=== PATIENT | male | born 1950 | race Hispanic/Latino ===

== ENCOUNTER 2021-07-19 10:04 | Inpatient (IN) | payer MEDICARE ==
[2021-07-19] MEDS ORDERED: dilTIAZem 25 MG/5 ML INJ IV ONE ×3 (10:45→13:26)
--- NOTE | 2021-07-19 10:49 | Emergency Department Report ---
<TERESITA OLIVEIRA - Last Filed: 07/19/21 13:54> ED Shortness of Breath HPI - General Chief Complaint: Dyspnea/Respdistress Stated Complaint: SOB/BIATERAL LEG SWELLING Time Seen by Provider: 07/19/21 10:29 Source: patient Mode of arrival: Wheelchair Limitations: Physical Limitation - History of Present Illness Initial Comments: Patient is a 71-year-old male who presents emergency room with complaints of chest pain and shortness of breath. Patient states that he has chest pain that moves across the chest and feels like a aching and tightness. He states he has had this chest pain for approximately 2 to 3 weeks. Patient states he has been feeling short of breath for a month and a half. He states that shortness of breath has been increasing. He states it is worse whenever he lays flat or with exertion. Patient went to [facility] last week and according to his discharge paperwork he was diagnosed with CHF nyha class 4 . He states he takes Lasix 40 mg once a day. according to his paperwork he was supposed to increase his lasix to 40 mg BID. there is no mention on his paperwork of history of irregular heart rhythm. Patient states he also has a history of MD. Patient states he is also been having some nausea and a few episodes of vomiting. He denies any abdominal pain, pleuritic pain, hemoptysis. Patient denies any history of being diagnosed with a regular heart rhythm or being on any beta-blockers or anticoagulation. He denies any medication allergies. 1115 AM, patient move to MAIN ED room 19, care transferred to Dr. Govea, ER attending who will be resuming care of patient - Related Data Home Medications Medication Instructions Recorded Confirmed Last Taken No Known Home Medications [No 07/19/21 07/19/21 Unknown Reported Home Medications] Allergies Allergy/AdvReac Type Severity Reaction Status Date / Time No Known Allergies Allergy Verified 07/19/21 10:06 ED Review of Systems Comment: All other systems reviewed and negative ED Past Medical Hx - Past Medical History Previous Medical History?: Yes Hx Congestive Heart Failure: Yes Additional medical history: COVID 05/2021 - Surgical History Past Surgical History?: Yes Additional Surgical History: right elbow sx - Social History Smoking Status: Current Every Day Smoker Substance Use Type: Alcohol - Medications Home Medications: Home Medications Medication Instructions Recorded Confirmed Last Taken Type No Known Home Medications [No 07/19/21 07/19/21 Unknown History Reported Home Medications] ED Physical Exam - General Limitations: Physical Limitation General appearance: alert, in no apparent distress - Head Head exam: Present: atraumatic, normocephalic - Eye Eye exam: Present: normal appearance - ENT ENT exam: Present: mucous membranes moist - Respiratory Respiratory exam: Present: rales (bilateral bases). Absent: respiratory distress, wheezes, rhonchi, stridor, chest wall tenderness, accessory muscle use - Cardiovascular Cardiovascular Exam: Present: tachycardia, irregular rhythm - Extremities Exam Extremities exam: Present: other (4+ pitting edema to the BLE) - Neurological Exam Neurological exam: Present: alert, oriented X3 - Psychiatric Psychiatric exam: Present: normal affect, normal mood - Skin Skin exam: Present: warm, dry ED Medical Decision Making - Lab Data Result diagrams: 07/19/21 11:27 07/19/21 11:27 - EKG Data EKG shows normal: axis Rate: tachycardia - EKG Data 07/19/21 10:48 Irregular rhythm with elevated heart rate No STEMI ED Disposition Clinical Impression: Atrial fibrillation with RVR, CHF exacerbation, Chest pain Disposition: ADMITTED INPATIENT Condition: Stable Instructions: Nonspecific Chest Pain, Adult Referrals: PRIMARY CARE,MD [Primary Care Provider] - 3-5 Days <FAREED GOVEA - Last Filed: 07/19/21 14:00> ED Review of Systems ROS: Stated complaint: SOB/BIATERAL LEG SWELLING Other details as noted in HPI ED Course Vital Signs 07/19/21 07/19/21 07/19/21 10:06 11:10 11:15 Temperature 97.8 F Pulse Rate 145 H 135 H 132 H Respiratory 20 18 16 Rate Blood Pressure 103/78 O2 Sat by Pulse 100 Oximetry 07/19/21 07/19/21 07/19/21 11:31 11:33 11:35 Temperature Pulse Rate 100 H 147 H Respiratory 19 18 Rate Blood Pressure 146/110 146/110 O2 Sat by Pulse Oximetry 07/19/21 07/19/21 07/19/21 11:45 12:05 12:21 Temperature Pulse Rate Respiratory 20 Rate Blood Pressure 150/79 136/73 123/73 O2 Sat by Pulse Oximetry 07/19/21 07/19/21 07/19/21 12:34 12:35 12:49 Temperature Pulse Rate Respiratory Rate Blood Pressure 127/71 127/71 O2 Sat by Pulse 97 Oximetry 07/19/21 07/19/21 07/19/21 13:05 13:21 13:45 Temperature Pulse Rate 115 H Respiratory Rate Blood Pressure 120/76 136/73 123/77 O2 Sat by Pulse 99 Oximetry ED Medical Decision Making - Lab Data Result diagrams: 07/19/21 11:27 07/19/21 11:27 Laboratory Tests 07/19/21 07/19/21 07/19/21 11:27 11:27 11:27 WBC 5.5 RBC 3.12 L Hgb 11.7 L Hct 34.6 L MCV 111 H MCH 38 H MCHC 34 RDW 19.4 H Plt Count 103 L Lymph % (Auto) 20.7 Terry % (Auto) 9.7 H Eos % (Auto) 1.4 Baso % (Auto) 1.8 Lymph # (Auto) 1.1 L Terry # (Auto) 0.5 Eos # (Auto) 0.1 Baso # (Auto) 0.1 Seg Neutrophils % 66.4 Seg Neutrophils # 3.6 PT 15.1 H INR 1.14 H APTT 30.7 Sodium 141 Potassium 4.2 Chloride 103.1 Carbon Dioxide 20 L Anion Gap 22 BUN 50 H Creatinine 3.6 H Estimated GFR 17 BUN/Creatinine Ratio 14 Glucose 166 H Calcium 9.3 Magnesium 2.30 Total Bilirubin 0.60 AST 23 ALT 18 Alkaline Phosphatase 135 H Total Creatine Kinase 85 Troponin T 0.069 H NT-Pro-B Natriuret Pep 31990 H Total Protein 7.2 Albumin 3.7 L Albumin/Globulin Ratio 1.1 Triglycerides 127 Cholesterol 138 LDL Cholesterol Direct 80 HDL Cholesterol 33 L Cholesterol/HDL Ratio 4.18 TSH 07/19/21 11:27 WBC RBC Hgb Hct MCV MCH MCHC RDW Plt Count Lymph % (Auto) Terry % (Auto) Eos % (Auto) Baso % (Auto) Lymph # (Auto) Terry # (Auto) Eos # (Auto) Baso # (Auto) Seg Neutrophils % Seg Neutrophils # PT INR APTT Sodium Potassium Chloride Carbon Dioxide Anion Gap BUN Creatinine Estimated GFR BUN/Creatinine Ratio Glucose Calcium Magnesium Total Bilirubin AST ALT Alkaline Phosphatase Total Creatine Kinase Troponin T NT-Pro-B Natriuret Pep Total Protein Albumin Albumin/Globulin Ratio Triglycerides Cholesterol LDL Cholesterol Direct HDL Cholesterol Cholesterol/HDL Ratio TSH 3.060 - Differential Diagnosis CHF exacerbation, A. fib with RVR Critical care attestation.: If time is entered above; I have spent that time in minutes in the direct care of this critically ill patient, excluding procedure time. ED Disposition Is pt being admited?: Yes Does the pt Need Aspirin: Yes Time of Disposition: 14:00 (Hospitalist called (Dr Wick)) Heart Score - HEART Score History: Moderately suspicious EKG: Non-specific Age: > 65 Risk factors: 1-2 risk factors Troponin: 1-3x normal limit HEART Score: 6 - EKG Read Time Time EKG Completed: 10:26 EKG Read Time: 10:32
--- NOTE | 2021-07-19 11:21 | XRay Report ---
CHEST 2 VIEWS INDICATION / CLINICAL INFORMATION: Chest Pain. COMPARISON: None available. FINDINGS: SUPPORT DEVICES: None. HEART / MEDIASTINUM: No significant abnormality. LUNGS / PLEURA: Bilateral right greater than left pleural effusions with bibasilar opacities No pneum othorax. ADDITIONAL FINDINGS: No significant additional findings. IMPRESSION: 1. Bilateral right greater than left pleural effusions with bibasilar opacities. Infectious process i s not excluded. Signer Name: Rob Alonso DO Signed: 07/19/2021 11:17 AM Workstation Name: [id number]
[2021-07-19] MEDS ORDERED: ONDANSETRON 4 MG/2 ML INJ IV ONE (11:34)
[2021-07-19] MEDS ORDERED: fentaNYL 100 MCG/2 ML INJ IV ONE (11:34)
[2021-07-19] MEDS ORDERED: AMIODARONE 150 MG in DEXTROSE 5% IN WATER 97 ML IV ONE (12:00)
[2021-07-19] MEDS ORDERED: AMIODARONE 900 MG in DEXTROSE 5% IN WATER 482 ML IV SCH (12:00)
[2021-07-19 13:12] LABS: Basophils # (Auto) 0.1 K/mm3 (0.0-0.1); Basophils % (Auto) 1.8 % (0.0-1.8); Eosinophils # (Auto) 0.1 K/mm3 (0.0-0.4); Eosinophils % (Auto) 1.4 % (0.0-4.3); Hematocrit 34.6 % (35.5-45.6); Hemoglobin 11.7 gm/dl (11.8-15.2); Lymphocytes # (Auto) 1.1 K/mm3 (1.2-5.4); Lymphocytes % (Auto) 20.7 % (13.4-35.0); Mean Corpuscular HGB Conc 34 % (32-34); Mean Corpuscular Volume 111 fl (84-94); Monocytes # (Auto) 0.5 K/mm3 (0.0-0.8); Monocytes % (Auto) 9.7 % (0.0-7.3); Platelet Count 103 K/mm3 (140-440); Red Blood Count 3.12 M/mm3 (3.65-5.03); Red Cell Distribution Width 19.4 % (13.2-15.2)
[2021-07-19 13:21] LABS: INR 1.14 (0.87-1.13)
[2021-07-19 13:22] LABS: Partial Thromboplastin Time 30.7 Sec. (24.2-36.6)
[2021-07-19 13:31] LABS: Albumin 3.7 g/dL (3.9-5); Calcium 9.3 mg/dL (8.4-10.2)
[2021-07-19 13:56] LABS: Chol/HDL Ratio 4.18 %
[2021-07-19] MEDS ORDERED: dilTIAZem/D5W 100 MG/100 ML BAG IV SCH ×2 (14:00→15:00)
--- NOTE | 2021-07-19 14:01 | History and Physical Report ---
History of Present Illness Chief complaint: My heart is pounding in my chest and it is hard to breathe History of present illness: 71 YO Male with Systolic CHF, Obesity Hypoventilation Syndrome, Nicotine Dependence, MD presents to ED for evaluation. Patient reports "my heart is pounding in my chest and it is hard to breathe". Patient states that he has experienced chest palpitations over the past 2 to 3 weeks with intermittent but progressively worsening symptoms over the past 2 days. Patient knowledges chest palpitations, shortness of breath, orthopnea, paroxysmal nocturnal dyspnea, decreased exercise tolerance, bilateral lower extremity edema. Patient denies medication noncompliance. Patient transported to [facility] via private vehicle for further care and evaluation of the aforementioned symptoms. The patient was seen and evaluated in the emergency department. All lab and imaging studies reviewed. Patient with an EKG which revealed evidence of atrial fibrillation with rapid ventricular response. Patient also found to have clinical symptoms consistent with CHF decompensation as well as acute kidney injury with acute tubular necrosis. Patient admitted to telemetry due to increased risk of worsen ing symptoms and initiated on CHF protocol. Patient initiated on medical cardioversion with Cardizem in the emergency department with normalization of heart rate. Patient transition to oral Cardizem and admitted to telemetry. Patient found to have a [id number] score of 3 in the emergency department. Patient initiated on therapeutic anticoagulation with Eliquis. Patient denies fever, chills, chest pain, productive cough, skin rash, recent ill contacts, or known recent exposure to COVID-19. No prior admission for review. No medication listed at time of admission for reconciliation. Advanced care planning conducted in ED. Past History Past Medical History: heart failure, other (See HPI) Past Surgical History: Other (Right elbow surgery) Social history: single, smoking Family history: hypertension Medications and Allergies Allergies Allergy/AdvReac Type Severity Reaction Status Date / Time No Known Allergies Allergy Verified 07/19/21 10:06 Home Medications Medication Instructions Recorded Confirmed Last Taken Type No Known Home Medications [No 07/19/21 07/19/21 Unknown History Reported Home Medications] Active Meds: Active Medications Diltiazem HCl (Cardizem/D5w 100mg/100ml) 100 mg in 100 mls @ 5 mls/hr IV TITR RIC; Protocol Review of Systems Constitutional: no weight loss, no weight gain, no fever, no chills Ears, nose, mouth and throat: no ear pain, no ear discharge, no tinnitis, no sinus pressure Cardiovascular: orthopnea, palpitations, rapid/irregular heart beat, shortness of breath, dyspnea on exertion, paroxysmal nocturnal dyspnea, leg edema, decreased exercise tolerance Respiratory: no cough, no cough with sputum, no hemoptysis Gastrointestinal: no nausea, no vomiting, no diarrhea Genitourinary Male: no hematuria, no flank pain, no discharge, no urinary frequency, no urinary hesitancy Rectal: no pain, no incontinence, no bleeding Musculoskeletal: no neck stiffness, no neck pain, no shooting arm pain, no arm numbness/tingling, no low back pain, no shooting leg pain Integumentary: no rash, no pruritis, no redness, no sores, no wounds Neurological: no transient paralysis, no paralysis, no parathesias, no tingling, no seizures, no syncope Psychiatric: no anxiety, no memory loss, no sleep disturbances Endocrine: no cold intolerance, no heat intolerance, no polydipsia, no polyuria, no nocturia Hematologic/Lymphatic: no easy bruising, no easy bleeding Allergic/Immunologic: no urticaria, no allergic rhinitis Exam - Constitutional Vitals: Temp Pulse Resp BP Pulse Ox 97.8 F 115 H 20 123/77 99 07/19/21 10:06 07/19/21 13:45 07/19/21 11:45 07/19/21 13:45 07/19/21 13:21 General appearance: Present: mild distress, obese - EENT Eyes: Present: PERRL ENT: hearing intact, clear oral mucosa - Neck Neck: Present: supple, normal ROM - Respiratory Respiratory effort: normal, labored Respiratory: bilateral: diminished, rales - Cardiovascular Heart Sounds: Present: S1 & S2. Absent: rub, click - Extremities Extremities: pulses symmetrical Extremity abnormal: edema Peripheral Pulses: within normal limits - Abdominal General gastrointestinal: Present: soft, non-tender, non-distended, normal bowel sounds Male genitourinary: Present: normal - Integumentary Integumentary: Present: clear, warm, dry - Musculoskeletal Musculoskeletal: gait normal, strength equal bilaterally - Psychiatric Psychiatric: appropriate mood/affect, intact judgment & insight - Neurologic Neurologic: CNII-XII intact, moves all extremities HEART Score - HEART Score EKG: Non-specific Age: > 65 Risk factors: 1-2 risk factors Troponin: Troponin T 0.069 ng/mL (0.00-0.029) H 07/19/21 11:27 Troponin: 1-3x normal limit Results - Labs CBC & Chem 7: 07/19/21 15:22 07/19/21 15:12 Labs: Abnormal lab results 07/19/21 07/19/21 07/19/21 Range/Units 11:27 11:27 11:27 RBC 3.12 L (3.65-5.03) M/mm3 Hgb 11.7 L (11.8-15.2) gm/dl Hct 34.6 L (35.5-45.6) % MCV 111 H (84-94) fl MCH 38 H (28-32) pg RDW 19.4 H (13.2-15.2) % Plt Count 103 L (140-440) K/mm3 Butts % (Auto) 9.7 H (0.0-7.3) % Lymph # (Auto) 1.1 L (1.2-5.4) K/mm3 PT 15.1 H (12.2-14.9) Sec. INR 1.14 H (0.87-1.13) Carbon Dioxide 20 L (22-30) mmol/L BUN 50 H (9-20) mg/dL Creatinine 3.6 H (0.8-1.3) mg/dL Glucose 166 H (75-100) mg/dL Alkaline Phosphatase 135 H (35-129) units/L Troponin T 0.069 H (0.00-0.029) ng/mL NT-Pro-B Natriuret Pep 10223 H (0-900) pg/mL Albumin 3.7 L (3.9-5) g/dL HDL Cholesterol 33 L (40-59) mg/dL Assessment and Plan - Patient Problems (1) CHF exacerbation Current Visit: Yes Status: Acute Qualifiers: Heart failure type: systolic Qualified Code(s): I50.23 - Acute on chronic systolic (congestive) heart failure Plan to address problem: Strict I's/O, diuresis, afterload reduction, cardiology team consulted in ED, echocardiogram ordered and is pending at time of admission, thyroid panel, magnesium level, afterload reduction, blood pressure control. (2) Atrial fibrillation with RVR Current Visit: Yes Status: Acute Plan to address problem: Patient treated with medical cardioversion with IV Cardizem. Patient switched to oral Cardizem, patient initiated on therapeutic anticoagulation with Eliquis. (3) Acute kidney injury (CONCETTA) with acute tubular necrosis (ATN) Current Visit: Yes Status: Acute Plan to address problem: Nephrology team consulted in ED, blood pressure control, monitor fluid balance, monitor urine output every shift. (4) Nicotine dependence Current Visit: Yes Status: Acute Qualifiers: Nicotine product type: cigarettes Substance use status: in withdrawal Qualified Code(s): F17.213 - Nicotine dependence, cigarettes, with withdrawal Plan to address problem: Smoking cessation counseling, supportive care. Behavior change counseling, +15 minutes. (5) Obesity hypoventilation syndrome Current Visit: Yes Status: Acute Plan to address problem: Balanced diet, increase physical activity discharge, outpatient pulmonary follow-up for sleep study. (6) DVT prophylaxis Current Visit: Yes Status: Acute Plan to address problem: SCD to bilateral lower extremities while in bed, continue therapeutic anticoagulation. (7) Advance care planning Current Visit: Yes Status: Acute Plan to address problem: Disease education conducted, care plan discussed, diagnosis discussed, prognosis discussed, patient is full code, patient knowledges understanding and agree with care plan.
[2021-07-19] MEDS ORDERED: ALBUTEROL 2.5 MG/3 ML NEBU IH PRN (15:03)
[2021-07-19 15:31] LABS: Hematocrit 33.5 % (35.5-45.6); Hemoglobin 11.4 gm/dl (11.8-15.2); Mean Corpuscular HGB Conc 34 % (32-34); Mean Corpuscular Volume 110 fl (84-94); Platelet Count 107 K/mm3 (140-440); Red Blood Count 3.06 M/mm3 (3.65-5.03); Red Cell Distribution Width 18.6 % (13.2-15.2)
[2021-07-19] MEDS: ONDANSETRON 4 MG/2 ML INJ IV PRN (15:39)
[2021-07-19 15:42] LABS: INR 1.12 (0.87-1.13)
[2021-07-19 15:43] LABS: Partial Thromboplastin Time 28.6 Sec. (24.2-36.6)
[2021-07-19 15:58] LABS: Free T4 (Free Thyroxine) 1.23 ng/dL (0.76-1.46)
[2021-07-19 17:30] LABS: Free T4 (Free Thyroxine) 1.22 ng/dL (0.76-1.46)
[2021-07-19] MEDS: dilTIAZem 30 MG TAB PO SCH (17:44)
[2021-07-19] MEDS ORDERED: dilTIAZem 30 MG TAB PO SCH (18:00)
--- NOTE | 2021-07-19 19:28 | Consultation ---
History of Present Illness - Reason for Consult Consult date: 07/19/21 acute renal failure - History of Present Illness The patient is a 71 YO male with hsitory significant for Morbid obesity, DM-2, HTN, HLD, current tobacco use (1.5 pack/day) and CKD-3 who presented to [facility] ED 07/19 with c/o heart palpitation and sob. Patient states that he has experienced heart palpitations over the past 2 to 3 weeks with symptoms being worse over the past 2 days. Patient reports orthopnea, decreased exercise tolerance and bilateral lower extremity edema. Patient denies fever, chills, chest pain, prod uctive cough, skin rash, N, V, D, abd pain, dysuria, hematuria, recent ill contacts, or known recent exposure to COVID-19. In the ED patient was found to have Atrial fibrillation with rapid ventricular response and CXR showed b/l pleural effusions and opacities. Patient was admitted for further evaluation of decompensated CHF and A.fib with RVR. Labs significant for Creat 3.6 and BUN 50. Nephrology was consulted for further evaluation of CONCETTA. Past History Past Medical History: diabetes, heart failure, hypertension, hyperlipidemia, renal failure, other (See HPI) Past Surgical History: Other (Right elbow surgery) Social history: single, smoking Family history: hypertension Medications and Allergies Allergies Allergy/AdvReac Type Severity Reaction Status Date / Time No Known Allergies Allergy Verified 07/19/21 10:06 Home Medications Medication Instructions Recorded Confirmed Last Taken Type No Known Home Medications [No 07/19/21 07/19/21 Unknown History Reported Home Medications] Active Meds: Active Medications Acetaminophen (Acetaminophen 325 Mg Tab) 650 mg PO Q4H PRN PRN Reason: Pain MILD(1-3)/Fever >100.5/AVILA Albuterol (Albuterol 2.5 Mg/3 Ml Nebu) 2.5 mg IH Q4H PRN PRN Reason: Shortness Of Breath Apixaban (Apixaban 2.5 Mg Tab) 2.5 mg PO Q12HR RIC; Protocol Diltiazem HCl (Diltiazem 30 Mg Tab) 30 mg PO Q6H RIC Last Admin: 07/19/21 17:44 Dose: 30 mg Documented by: Famotidine (Famotidine 20 Mg Tab) 20 mg PO BID RIC Hydromorphone HCl (Hydromorphone 1 Mg/1 Ml Inj) 0.5 mg IV Q23H PRN PRN Reason: Pain , Severe (7-10) Diltiazem HCl (Cardizem/D5w 100mg/100ml) 100 mg in 100 mls @ 5 mls/hr IV TITR RIC; Protocol Ondansetron HCl (Ondansetron 4 Mg/2 Ml Inj) 4 mg IV Q8H PRN PRN Reason: Nausea And Vomiting Last Admin: 07/19/21 15:39 Dose: 4 mg Documented by: Oxycodone/Acetaminophen (Oxycodone /Acetaminophen 5-325mg Tab) 1 tab PO Q16H PRN PRN Reason: Pain, Moderate (4-6) Sodium Chloride (Sodium Chloride 0.9% 10 Ml Flush Syringe) 10 ml IV BID RIC Sodium Chloride (Sodium Chloride 0.9% 10 Ml Flush Syringe) 10 ml IV PRN PRN PRN Reason: LINE FLUSH Review of Systems All systems: negative (See HPI.) Exam - Vital Signs Vital signs: Vital Signs Temp Pulse Resp BP Pulse Ox 97.8 F 145 H 20 103/78 100 07/19/21 10:06 07/19/21 10:06 07/19/21 10:06 07/19/21 10:06 07/19/21 10:06 Results - Lab Results 07/19/21 15:22 07/19/21 15:12 Most recent lab results Calcium 9.3 mg/dL (8.4-10.2) 07/19/21 11:27 Magnesium 2.40 mg/dL (1.7-2.3) H 07/19/21 16:41 Assessment and Plan 1. Acute kidney injury: CONCETTA superimposed on CKD-3 in the setting of decompensated CHF. Urine studies and Renal US ordered. Monitor renal function. Renal prognosis is guarded. Avoid nephrotoxic agents. Meds dosage based on GFR. 2. FEN: Mild metabolic acidosis, monitor. Volume overload, diuretics. Monitor lytes and volume status. 3. A.fib with RVR: On Amiodarone drip and Eliquis. Cardizem. Monitor. 4. Decompensated CHF / Elevated troponin, POA: Cards consulted. Monitor. 5. DM-2. 6. HTN. 7. Tobacco use: Counseled. Subjective: Patient was seen and examined at the bedside. Examination: General appearance: obese, well-developed, appears stated age, not in distress HEENT: atraumatic Neck: trachea midline Respiratory: diminished breath sounds Heart: S1S2, irregular, no murmur Abdomen: soft, obese, bowel sounds heard, Integumentary: LE discoloration noted Neurologic: AO, able to move extremities Ext: 1+ LE edema
[2021-07-20] MEDS: oxyCODONE /ACETAMINOPHEN 5-325MG TAB PO PRN ×3 (01:24→21:44)
[2021-07-20] MEDS: APIXABAN 2.5 MG TAB PO SCH ×3 (01:24→21:44)
[2021-07-20] MEDS: FAMOTIDINE 20 MG TAB PO SCH ×3 (01:24→21:43)
[2021-07-20] MEDS: dilTIAZem 30 MG TAB PO SCH ×5 (01:24→18:00)
[2021-07-20 07:01] LABS: Calcium 9.1 mg/dL (8.4-10.2)
[2021-07-20 08:44] LABS: Bacteria,Urine 1+ /HPF (Negative); Bilirubin,Urine NEG (Negative); Blood,Urine NEG (Negative); Color,Urine Yellow (Yellow); Hyaline Casts,Urine 15 /LPF; Mucus,Urine FEW /HPF; Urobilinogen,Urine < 2.0 mg/dL (<2.0); White Blood Cell Casts,Urine 8 /LPF
--- NOTE | 2021-07-20 09:14 | Progress Note ---
Assessment and Plan Assessment and plan: Acute CHF exacerbation. Atrial fibrillation with RVR Acute kidney injury on CKD 3. Nicotine dependence. Obesity hypoventilation syndrome. Hypertension. Diabetes mellitus type 2. Elevated troponin 07/20/2021. BNP elevated on admission at 18,662. Troponin is also elevated 0.69 and 0.067 respectively. Chest x-ray revealed bilateral right greater than left pleural effusions with bibasilar opacities. Follow-up echocardiogram to assess systolic/diastolic function. Await cardiology recommendations. Continue diuresis per cardiology. Amiodarone discontinued. Continue diltiazem 30 mg p.o. 6 hours for rate control. Continue anticoagulation with Eliquis 2.5 mg twice daily. Follow-up urine studies and renal ultrasound per nephrology recommendations. Renal prognosis is guarded. History Interval history: No new issues overnight. Hospitalist Physical - Constitutional Vitals: Temp Pulse Resp BP Pulse Ox 97.2 F L 84 20 126/78 97 07/20/21 09:04 07/20/21 09:04 07/20/21 09:04 07/20/21 09:04 07/20/21 09:04 General appearance: Present: no acute distress, obese - EENT Eyes: Present: PERRL, EOM intact ENT: hearing intact, clear oral mucosa, dentition normal - Neck Neck: Present: supple, normal ROM - Respiratory Respiratory effort: normal Respiratory: bilateral: CTA - Cardiovascular Rhythm: regular Heart Sounds: Present: S1 & S2. Absent: gallop, rub - Extremities Extremities: no ischemia, No edema, Full ROM - Abdominal General gastrointestinal: soft, non-tender, non-distended, normal bowel sounds - Integumentary Integumentary: Present: clear, warm, dry - Neurologic Neurologic: CNII-XII intact, moves all extremities HEART Score - HEART Score EKG: Non-specific Age: > 65 Risk factors: 1-2 risk factors Troponin: Troponin T 0.067 ng/mL (0.00-0.029) H 07/19/21 14:13 Troponin: 1-3x normal limit Results - Labs CBC & Chem 7: 07/19/21 15:22 07/20/21 05:58 Labs: Laboratory Last Values WBC 6.3 K/mm3 (4.5-11.0) 07/19/21 15:22 RBC 3.06 M/mm3 (3.65-5.03) L 07/19/21 15:22 Hgb 11.4 gm/dl (11.8-15.2) L 07/19/21 15:22 Hct 33.5 % (35.5-45.6) L 07/19/21 15:22 MCV 110 fl (84-94) H 07/19/21 15:22 MCH 37 pg (28-32) H 07/19/21 15:22 MCHC 34 % (32-34) 07/19/21 15:22 RDW 18.6 % (13.2-15.2) H 07/19/21 15:22 Plt Count 107 K/mm3 (140-440) L 07/19/21 15:22 Lymph % (Auto) 20.7 % (13.4-35.0) 07/19/21 11:27 [place] % (Auto) 9.7 % (0.0-7.3) H 07/19/21 11:27 Eos % (Auto) 1.4 % (0.0-4.3) 07/19/21 11:27 Baso % (Auto) 1.8 % (0.0-1.8) 07/19/21 11:27 Lymph # (Auto) 1.1 K/mm3 (1.2-5.4) L 07/19/21 11:27 [place] # (Auto) 0.5 K/mm3 (0.0-0.8) 07/19/21 11:27 Eos # (Auto) 0.1 K/mm3 (0.0-0.4) 07/19/21 11:27 Baso # (Auto) 0.1 K/mm3 (0.0-0.1) 07/19/21 11:27 Seg Neutrophils % 66.4 % (40.0-70.0) 07/19/21 11:27 Seg Neutrophils # 3.6 K/mm3 (1.8-7.7) 07/19/21 11:27 PT 14.9 Sec. (12.2-14.9) 07/19/21 15:15 INR 1.12 (0.87-1.13) 07/19/21 15:15 APTT 28.6 Sec. (24.2-36.6) 07/19/21 15:15 Sodium 138 mmol/L (137-145) 07/20/21 05:58 Potassium 4.3 mmol/L (3.6-5.0) 07/20/21 05:58 Chloride 99.4 mmol/L (98-107) 07/20/21 05:58 Carbon Dioxide 24 mmol/L (22-30) 07/20/21 05:58 Anion Gap 19 mmol/L 07/20/21 05:58 BUN 49 mg/dL (9-20) H 07/20/21 05:58 Creatinine 3.5 mg/dL (0.8-1.3) H 07/20/21 05:58 Estimated GFR 16 ml/min 07/20/21 05:58 BUN/Creatinine Ratio 14 % 07/20/21 05:58 Glucose 177 mg/dL (75-100) H 07/20/21 05:58 Calcium 9.1 mg/dL (8.4-10.2) 07/20/21 05:58 Magnesium 2.40 mg/dL (1.7-2.3) H 07/19/21 16:41 Total Bilirubin 0.60 mg/dL (0.1-1.2) 07/19/21 11:27 AST 23 units/L (5-40) 07/19/21 11:27 ALT 18 units/L (7-56) 07/19/21 11:27 Alkaline Phosphatase 135 units/L (35-129) H 07/19/21 11:27 Total Creatine Kinase 85 units/L (55-170) 07/19/21 11:27 Troponin T 0.067 ng/mL (0.00-0.029) H 07/19/21 14:13 NT-Pro-B Natriuret Pep 43968 pg/mL (0-900) H 07/19/21 11:27 Total Protein 7.2 g/dL (6.3-8.2) 07/19/21 11:27 Albumin 3.7 g/dL (3.9-5) L 07/19/21 11:27 Albumin/Globulin Ratio 1.1 % 07/19/21 11:27 Triglycerides 127 mg/dL (2-149) 07/19/21 11:27 Cholesterol 138 mg/dL (50-199) 07/19/21 11:27 LDL Cholesterol Direct 80 mg/dL (50-130) 07/19/21 11:27 HDL Cholesterol 33 mg/dL (40-59) L 07/19/21 11:27 Cholesterol/HDL Ratio 4.18 % 07/19/21 11:27 TSH 2.410 mlU/mL (0.270-4.200) 07/19/21 16:41 Free T4 1.22 ng/dL (0.76-1.46) 07/19/21 16:41 Urine Bilirubin Neg (Negative) 07/20/21 Unknown Urine RBC (Auto) 30.0 /HPF (0.0-6.0) 07/20/21 Unknown U Epithel Cells (Auto) 21.0 /HPF (0-13.0) H 07/20/21 Unknown Active Medications - Current Medications Current Medications: Generic Name Dose Route Start Last Admin Trade Name Freq PRN Reason Stop Dose Admin Acetaminophen 650 mg 07/19/21 15:03 Acetaminophen 325 Mg Tab PO Q4H PRN Pain MILD(1-3)/Fever >100.5/AVILA Albuterol 2.5 mg 07/19/21 15:03 Albuterol 2.5 Mg/3 Ml Nebu IH Q4H PRN Shortness Of Breath Apixaban 2.5 mg 07/19/21 22:00 07/20/21 01:24 Apixaban 2.5 Mg Tab PO 2.5 mg Q12HR RIC Administration Protocol Diltiazem HCl 30 mg 07/20/21 06:00 07/20/21 06:07 Diltiazem 30 Mg Tab PO 30 mg Q6HR RIC Administration Famotidine 20 mg 07/19/21 22:00 07/20/21 01:24 Famotidine 20 Mg Tab PO 20 mg BID RIC Administration Hydromorphone HCl 0.5 mg 07/19/21 15:03 Hydromorphone 1 Mg/1 Ml Inj IV Q23H PRN Pain , Severe (7-10) Ondansetron HCl 4 mg 07/19/21 15:03 07/19/21 15:39 Ondansetron 4 Mg/2 Ml Inj IV 4 mg Q8H PRN Administration Nausea And Vomiting Oxycodone/Acetaminophen 1 tab 07/19/21 15:03 07/20/21 01:24 Oxycodone /Acetaminophen 5-325mg Tab PO 1 tab Q16H PRN Administration Pain, Moderate (4-6) Sodium Chloride 10 ml 07/19/21 22:00 07/20/21 01:24 Sodium Chloride 0.9% 10 Ml Flush Syringe IV 10 ml BID RIC Administration Sodium Chloride 10 ml 07/19/21 15:03 Sodium Chloride 0.9% 10 Ml Flush Syringe IV PRN PRN LINE FLUSH
--- NOTE | 2021-07-20 10:11 | Ultrasound Report ---
ULTRASOUND RENAL INDICATION / CLINICAL INFORMATION: Acute renal failure.. COMPARISON: None available. FINDINGS: RIGHT KIDNEY: Length = 12.3 cm. [normal > 9 cm] - Parenchymal Thickness = 1.1 cm. [normal > 1.5 cm] - Echogenicity: Normal. - Hydronephrosis: None. - Cyst or mass: Simple cysts, largest measuring 9.3 cm in maximal dimension arising from the mid to l ower pole region - Stones: None seen. LEFT KIDNEY: Length = 12.9 cm. [normal > 9 cm] - Parenchymal Thickness = 1.5 cm. [normal > 1.5 cm] - Echogenicity: Normal. - Hydronephrosis: None. - Cyst or mass: No significant abnormality. - Stones: None seen. URINARY BLADDER: No significant abnormality. FREE FLUID: Small volume ascites. ADDITIONAL FINDINGS: None. IMPRESSION: 1. Simple right-sided renal cyst. 2. Small volume ascites. Signer Name: Tariq Law MD Signed: 07/20/2021 10:07 AM Workstation Name: [id number]
[2021-07-20 13:53] LABS: Protein/Creatinine Ratio,Urine 0.68
--- NOTE | 2021-07-20 15:20 | Progress Note ---
Assessment and Plan 1. Acute kidney injury: CONCETTA superimposed on CKD-3 in the setting of decompensated CHF. Renal US negative. Urine studies ordered. Monitor renal function. Creatinine level is about the same. Renal prognosis is guarded. Avoid nephrotoxic agents. Meds dosage based on GFR. 2. FEN: Mild metabolic acidosis, monitor. Volume overload, diuretics. Monitor lytes and volume status. 3. A.fib with RVR: On Cardizem and Eliquis. Cardizem. Monitor. 4. Decompensated CHF / Elevated troponin, POA: Followed by Cards. Monitor. 5. DM-2. 6. HTN. 7. Tobacco use: Counseled. Subjective: Patient was seen and examined at the bedside. Examination: General appearance: obese, well-developed, appears stated age, not in distress HEENT: atraumatic Neck: trachea midline Respiratory: diminished breath sounds Heart: S1S2, irregular, no murmur Abdomen: soft, obese, bowel sounds heard, Integumentary: LE discoloration noted Neurologic: AO, able to move extremities Ext: 1+ LE edema Subjective Date of service: 07/20/21 Objective - Vital Signs Vital signs: Vital Signs - 12hr 07/20/21 07/20/21 07/20/21 03:31 03:45 04:01 Temperature Pulse Rate 89 85 92 H Respiratory 11 L 10 L 11 L Rate Blood Pressure 110/71 110/76 111/78 Blood Pressure [Left] O2 Sat by Pulse 97 97 98 Oximetry 07/20/21 07/20/21 07/20/21 04:15 04:45 04:48 Temperature Pulse Rate 106 H 102 H Respiratory 16 22 Rate Blood Pressure 99/72 Blood Pressure [Left] O2 Sat by Pulse 96 93 Oximetry 07/20/21 07/20/21 07/20/21 05:35 08:18 09:04 Temperature 99.1 F 97.2 F L Pulse Rate 73 84 Respiratory 19 20 Rate Blood Pressure 135/83 Blood Pressure 126/78 [Left] O2 Sat by Pulse 98 98 97 Oximetry 07/20/21 07/20/21 11:18 12:00 Temperature Pulse Rate 82 Respiratory 20 Rate Blood Pressure Blood Pressure [Left] O2 Sat by Pulse 95 Oximetry - Lab 07/21/21 06:02 07/21/21 06:02 Most recent lab results Calcium 9.1 mg/dL (8.4-10.2) 07/20/21 05:58 Magnesium 2.40 mg/dL (1.7-2.3) H 07/19/21 16:41 Urine Creatinine 136.0 mg/dL (0.1-20.0) H 07/20/21 Unknown Urine Sodium 42 mmol/L 07/20/21 Unknown Urine Total Protein 92 mg/dL (5-11.8) H 07/20/21 Unknown Medications & Allergies - Medications Allergies/Adverse Reactions: Allergies No Known Allergies Allergy (Verified 07/19/21 10:06) Home Medications: Home Medications Medication Instructions Recorded Confirmed Last Taken Type No Known Home Medications [No 07/19/21 07/19/21 Unknown History Reported Home Medications] Active Medications: Generic Name Dose Route Start Last Admin Trade Name Freq PRN Reason Stop Dose Admin Acetaminophen 650 mg 07/19/21 15:03 Acetaminophen 325 Mg Tab PO Q4H PRN Pain MILD(1-3)/Fever >100.5/AVILA Albuterol 2.5 mg 07/19/21 15:03 Albuterol 2.5 Mg/3 Ml Nebu IH Q4H PRN Shortness Of Breath Apixaban 2.5 mg 07/19/21 22:00 07/20/21 10:30 Apixaban 2.5 Mg Tab PO 2.5 mg Q12HR RIC Administration Protocol Diltiazem HCl 30 mg 07/20/21 06:00 07/20/21 12:58 Diltiazem 30 Mg Tab PO 30 mg Q6HR RIC Administration Famotidine 10 mg 07/20/21 22:00 Famotidine 20 Mg Tab PO BID RIC Hydromorphone HCl 0.5 mg 07/19/21 15:03 Hydromorphone 1 Mg/1 Ml Inj IV Q23H PRN Pain , Severe (7-10) Ondansetron HCl 4 mg 07/19/21 15:03 07/19/21 15:39 Ondansetron 4 Mg/2 Ml Inj IV 4 mg Q8H PRN Administration Nausea And Vomiting Oxycodone/Acetaminophen 1 tab 07/19/21 15:03 07/20/21 13:33 Oxycodone /Acetaminophen 5-325mg Tab PO 1 tab Q16H PRN Administration Pain, Moderate (4-6) Sodium Chloride 10 ml 07/19/21 22:00 07/20/21 10:30 Sodium Chloride 0.9% 10 Ml Flush Syringe IV 10 ml BID RIC Administration Sodium Chloride 10 ml 07/19/21 15:03 Sodium Chloride 0.9% 10 Ml Flush Syringe IV PRN PRN LINE FLUSH
--- NOTE | 2021-07-20 16:46 | Consultation ---
History of Present Illness Consult date: 07/20/21 Requesting physician: AUGUSTO CONNER Consult reason: arrhythmia, congestive heart failure History of present illness: Patient is a 71 y/o male with a pmhx of CHF, HTN, COVID-19, and CKD who presented with a complaint of worsening SOB and palpitations x2 days. The patient reports that over the last 2-3 months he has had SOB, BLE edema, and palpitations however over the last 2 days it has become much worse and he came to the hospital. He reports LARSON, SOB, orthopnea, and BLE edema. He also reports a sharp substernal chest pain that he rates 2/10 that is reproducible with palpation, movement, and lying flat. However it is relieved with Vix vapor rub. He denies nausea, vomiting, lightheadedness. He further reports that he went to his PCP on 07/16/2021 and was told he needs to follow up with a cardiologists. The patient was unsure why. In the ED the patient was found to be in Afib with RVR. He was started on a Amio gtt and switched to PO Cardizem. The patient is previously unknown to our practice. Cardiology is consulted for Afib w. RVR and CHF. Past History Past Medical History: diabetes, heart failure, hypertension, hyperlipidemia, renal failure, other (See HPI) Past Surgical History: Other (Right elbow surgery) Social history: single, smoking Family history: hypertension Medications and Allergies Allergies Allergy/AdvReac Type Severity Reaction Status Date / Time No Known Allergies Allergy Verified 07/19/21 10:06 Home Medications Medication Instructions Recorded Confirmed Last Taken Type No Known Home Medications [No 07/19/21 07/19/21 Unknown History Reported Home Medications] Active Meds: Active Medications Acetaminophen (Acetaminophen 325 Mg Tab) 650 mg PO Q4H PRN PRN Reason: Pain MILD(1-3)/Fever >100.5/AVILA Albuterol (Albuterol 2.5 Mg/3 Ml Nebu) 2.5 mg IH Q4H PRN PRN Reason: Shortness Of Breath Apixaban (Apixaban 2.5 Mg Tab) 2.5 mg PO Q12HR [facility]; Protocol Last Admin: 07/20/21 10:30 Dose: 2.5 mg Documented by: Diltiazem HCl (Diltiazem 30 Mg Tab) 30 mg PO Q6HR [facility] Last Admin: 07/20/21 12:58 Dose: 30 mg Documented by: Famotidine (Famotidine 20 Mg Tab) 10 mg PO BID [facility] Hydromorphone HCl (Hydromorphone 1 Mg/1 Ml Inj) 0.5 mg IV Q23H PRN PRN Reason: Pain , Severe (7-10) Ondansetron HCl (Ondansetron 4 Mg/2 Ml Inj) 4 mg IV Q8H PRN PRN Reason: Nausea And Vomiting Last Admin: 07/19/21 15:39 Dose: 4 mg Documented by: Oxycodone/Acetaminophen (Oxycodone /Acetaminophen 5-325mg Tab) 1 tab PO Q16H PRN PRN Reason: Pain, Moderate (4-6) Last Admin: 07/20/21 13:33 Dose: 1 tab Documented by: Sodium Chloride (Sodium Chloride 0.9% 10 Ml Flush Syringe) 10 ml IV BID [facility] Last Admin: 07/20/21 10:30 Dose: 10 ml Documented by: Sodium Chloride (Sodium Chloride 0.9% 10 Ml Flush Syringe) 10 ml IV PRN PRN PRN Reason: LINE FLUSH Review of Systems All systems: negative Constitutional: no weight loss, no weight gain, no fever, no chills Ears, nose, mouth and throat: no nasal congestion, no nasal discharge, no sinus pressure Cardiovascular: chest pain, orthopnea, palpitations, rapid/irregular heart beat, edema, shortness of breath, dyspnea on exertion, paroxysmal nocturnal dyspnea, leg edema Respiratory: shortness of breath, dyspnea on exertion, no cough, no cough with sputum Gastrointestinal: no abdominal pain, no nausea, no vomiting, no diarrhea Musculoskeletal: no neck stiffness, no neck pain Integumentary: no rash, no pruritis, no redness, no sores Neurological: no paralysis, no weakness, no parathesias Psychiatric: no anxiety, no memory loss Endocrine: no cold intolerance, no heat intolerance Hematologic/Lymphatic: no easy bruising, no easy bleeding Physical Examination Vital Signs Temp Pulse Resp BP Pulse Ox 97.8 F 145 H 20 103/78 100 07/19/21 10:06 07/19/21 10:06 07/19/21 10:06 07/19/21 10:06 07/19/21 10:06 General appearance: no acute distress HEENT: Positive: PERRL Cardiac: Positive: irregularly irregular Lungs: Positive: clear to auscultation, Normal Breath Sounds Neuro: Positive: Grossly Intact Abdomen: Positive: Soft, Active Bowel Sounds Skin: Negative: Rash, Suspicious Lesions, Ulceration Extremities: Present: upper extr. pulses, lower extr. pulses, +2 Edema Results 07/19/21 15:22 07/20/21 05:58 Comprehensive Metabolic Panel 07/20/21 Range/Units 05:58 Sodium 138 (137-145) mmol/L Potassium 4.3 (3.6-5.0) mmol/L Chloride 99.4 (98-107) mmol/L Carbon Dioxide 24 (22-30) mmol/L BUN 49 H (9-20) mg/dL Creatinine 3.5 H (0.8-1.3) mg/dL Glucose 177 H (75-100) mg/dL Calcium 9.1 (8.4-10.2) mg/dL - Imaging and Cardiology Echo: pending EKG: report reviewed, image reviewed EKG interpretations - Telemetry EKG Rhythm: Atrial Fibrillation - EKG Supraventricular dysrhythmia: atrial fibrillation Assessment and Plan Patient is a 71 y/o male with a pmhx of CHF, HTN, COVID-19, and CKD who presented with a complaint of worsening SOB and palpitations x2 days Afib w/RVR CHF HTN * EKG shows afib w/rvr 138. No acute ischemic changes. * Telemetry reviewed: Afib 90s-100s * BNP noted to be elevated and patient has BLE edema Chest x-ray revealed bilateral right greater than left pleural effusions with bibasilar opacities * Troponins noted to be minimally elevated in setting of CHF and CONCETTA * Patient currently on Cardizem 30mg PO Q6hr, Eliquis 2.5mg PO BID CONCETTA on CKD * Patient creatinine 3.5 this admission. Upon review of outside records this is noted to be higher than his baseline of 1.4 * Nephrology following Plan: Echo pending. Patient for lexiscan MPI stress test in AM. NPO after midnight. Continue Cardizem and Eliquis. Will hold MILAGRO/ARB and lasix in setting of CONCETTA. Patient seen in conjunction with Dr. Ceron who agrees with this plan of care. Will continue to follow. - Patient Problems (1) Acute kidney injury (CONCETTA) with acute tubular necrosis (ATN) Current Visit: Yes Status: Acute (2) Atrial fibrillation with RVR Current Visit: Yes Status: Acute (3) CHF exacerbation Current Visit: Yes Status: Acute Qualifiers: Heart failure type: systolic Qualified Code(s): I50.23 - Acute on chronic systolic (congestive) heart failure (4) Chest pain Current Visit: Yes Status: Acute (5) Nicotine dependence Current Visit: Yes Status: Acute Qualifiers: Nicotine product type: cigarettes Substance use status: in withdrawal Qualified Code(s): F17.213 - Nicotine dependence, cigarettes, with withdrawal (6) Obesity hypoventilation syndrome Current Visit: Yes Status: Acute
[2021-07-21] MEDS: dilTIAZem 30 MG TAB PO SCH ×3 (00:17→14:08)
[2021-07-21 06:20] LABS: Hematocrit 33.2 % (35.5-45.6); Hemoglobin 11.2 gm/dl (11.8-15.2); Mean Corpuscular HGB Conc 34 % (32-34); Red Blood Count 3.01 M/mm3 (3.65-5.03); Red Cell Distribution Width 18.6 % (13.2-15.2)
[2021-07-21 06:24] LABS: Mean Corpuscular Volume 110 fl (84-94); Platelet Count 97 K/mm3 (140-440)
[2021-07-21] MEDS ORDERED: REGADENOSON 0.4 MG/5 ML INJ IV ONE (06:51)
--- NOTE | 2021-07-21 08:12 | Progress Note ---
Assessment and Plan 1. Acute kidney injury: CONCETTA superimposed on CKD-3 in the setting of decompensated CHF. Renal US negative. Monitor renal function. Slight decrease in the Creatinine level noted. Renal prognosis is guarded. Avoid nephrotoxic agents. Meds dosage based on GFR. 2. FEN: Mild metabolic acidosis, monitor. Volume overload, diuretics. Monitor lytes and volume status. 3. A.fib with RVR: On Metoprolol and Eliquis. Monitor. 4. Decompensated CHF / Elevated troponin, POA: Followed by Cards. Monitor. 5. DM-2. 6. HTN. 7. Tobacco use: Counseled. Subjective: Patient was seen and examined at the bedside. Examination: General appearance: obese, well-developed, appears stated age, not in distress HEENT: atraumatic Neck: trachea midline Respiratory: diminished breath sounds Heart: S1S2, irregular, no murmur Abdomen: soft, obese, bowel sounds heard, Integumentary: LE discoloration noted Neurologic: AO, able to move extremities Ext: 1+ LE edema Subjective Date of service: 07/21/21 Objective - Vital Signs Vital signs: Vital Signs - 12hr 07/20/21 07/20/21 07/20/21 20:51 21:44 23:05 Temperature Pulse Rate 87 Respiratory 18 18 Rate Blood Pressure O2 Sat by Pulse 96 Oximetry 07/20/21 07/20/21 07/21/21 23:11 23:25 04:08 Temperature 97.3 F L 97.5 F L Pulse Rate 66 63 Respiratory 18 20 Rate Blood Pressure 184/64 114/63 115/69 O2 Sat by Pulse 97 95 93 Oximetry - Lab 07/21/21 06:02 07/21/21 06:02 Most recent lab results Calcium 9.0 mg/dL (8.4-10.2) 07/21/21 06:02 Magnesium 2.40 mg/dL (1.7-2.3) H 07/19/21 16:41 Urine Creatinine 136.0 mg/dL (0.1-20.0) H 07/20/21 Unknown Urine Sodium 42 mmol/L 07/20/21 Unknown Urine Total Protein 92 mg/dL (5-11.8) H 07/20/21 Unknown Medications & Allergies - Medications Allergies/Adverse Reactions: Allergies No Known Allergies Allergy (Verified 07/19/21 10:06) Home Medications: Home Medications Medication Instructions Recorded Confirmed Last Taken Type No Known Home Medications [No 07/19/21 07/19/21 Unknown History Reported Home Medications] Active Medications: Generic Name Dose Route Start Last Admin Trade Name Freq PRN Reason Stop Dose Admin Acetaminophen 650 mg 07/19/21 15:03 Acetaminophen 325 Mg Tab PO Q4H PRN Pain MILD(1-3)/Fever >100.5/AVILA Albuterol 2.5 mg 07/19/21 15:03 Albuterol 2.5 Mg/3 Ml Nebu IH Q4H PRN Shortness Of Breath Apixaban 2.5 mg 07/19/21 22:00 07/20/21 21:44 Apixaban 2.5 Mg Tab PO 2.5 mg Q12HR RIC Administration Protocol Diltiazem HCl 30 mg 07/20/21 06:00 07/21/21 05:23 Diltiazem 30 Mg Tab PO 30 mg Q6HR RIC Administration Famotidine 10 mg 07/20/21 22:00 07/20/21 21:43 Famotidine 20 Mg Tab PO 10 mg BID RIC Administration Hydromorphone HCl 0.5 mg 07/19/21 15:03 Hydromorphone 1 Mg/1 Ml Inj IV Q23H PRN Pain , Severe (7-10) Ondansetron HCl 4 mg 07/19/21 15:03 07/19/21 15:39 Ondansetron 4 Mg/2 Ml Inj IV 4 mg Q8H PRN Administration Nausea And Vomiting Oxycodone/Acetaminophen 1 tab 07/19/21 15:03 07/20/21 21:44 Oxycodone /Acetaminophen 5-325mg Tab PO 1 tab Q16H PRN Administration Pain, Moderate (4-6) Sodium Chloride 10 ml 07/19/21 22:00 07/20/21 21:46 Sodium Chloride 0.9% 10 Ml Flush Syringe IV 10 ml BID RIC Administration Sodium Chloride 10 ml 07/19/21 15:03 Sodium Chloride 0.9% 10 Ml Flush Syringe IV PRN PRN LINE FLUSH
[2021-07-21] MEDS: ONDANSETRON 4 MG/2 ML INJ IV PRN (08:57)
[2021-07-21] MEDS: APIXABAN 2.5 MG TAB PO SCH ×2 (10:32→21:08)
[2021-07-21] MEDS: FAMOTIDINE 20 MG TAB PO SCH ×2 (10:32→21:08)
--- NOTE | 2021-07-21 11:17 | Electrocardiograph Report ---
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
[2021-07-21] MEDS: oxyCODONE /ACETAMINOPHEN 5-325MG TAB PO PRN (12:36)
--- NOTE | 2021-07-21 14:08 | Progress Note ---
Assessment and Plan Patient is a 71 y/o male with a pmhx of CHF, HTN, COVID-19, and CKD who presented with a complaint of worsening SOB and palpitations x2 days Afib w/RVR CHF HTN * EKG shows afib w/rvr 138. No acute ischemic changes. * Telemetry reviewed: Afib 90s-100s * BNP noted to be elevated and patient has BLE edema Chest x-ray revealed krysten ateral right greater than left pleural effusions with bibasilar opacities * Troponins noted to be minimally elevated in setting of CHF and CONCETTA * Patient currently on Cardizem 30mg PO Q6hr, Eliquis 2.5mg PO BID * Echo 07/19/2021-EF 15 to 20%, severe global hypokinesis of left ventricle, mild concentric left ventricular hypertrophy, mild aortic regurgitation, there is aortic stenosis unable to determine peak velocity due to A. fib, moderate tricuspid regurgitation, moderate pulmonary hypertension CONCETTA on CKD * Patient creatinine 3.5 this admission. Upon review of outside records this is noted to be higher than his baseline of 1.4 * Nephrology following Plan: Lexiscan MPI stress test test today results pending.Stop Cardizem and convert to to metoprolol 25mg PO TID for rate control. Continue Eliquis. Will hold IMLAGRO/ARB and lasix in setting of CONCETTA. When renal function returns to baseline and pending ok form nephrology will plan for [facility] Patient seen in conjunction with Dr. Munoz who agrees with this plan of care. Will continue to follow. - Patient Problems (1) Acute kidney injury (CONCETTA) with acute tubular necrosis (ATN) Current Visit: Yes Status: Acute (2) Atrial fibrillation with RVR Current Visit: Yes Status: Acute (3) CHF exacerbation Current Visit: Yes Status: Acute Qualifiers: Heart failure type: systolic Qualified Code(s): I50.23 - Acute on chronic systolic (congestive) heart failure (4) Chest pain Current Visit: Yes Status: Acute (5) Nicotine dependence Current Visit: Yes Status: Acute Qualifiers: Nicotine product type: cigarettes Substance use status: in withdrawal Qualified Code(s): F17.213 - Nicotine dependence, cigarettes, with withdrawal (6) Obesity hypoventilation syndrome Current Visit: Yes Status: Acute Subjective Date of service: 07/21/21 Principal diagnosis: HFrEF,Afib Interval history: Patient for stress test this AM. He reports feeling better Afib 90s-100s on monitor Objective Vital Signs Temp Pulse Resp BP BP Pulse Ox 07/21/21 11:38 97.1 F L 82 12 111/63 98 07/21/21 08:56 123/68 07/21/21 08:53 117/67 07/21/21 08:52 117/71 07/21/21 08:50 114/70 07/21/21 08:47 116/60 07/21/21 08:33 119/65 07/21/21 08:22 110/64 07/21/21 08:00 20 95 07/21/21 07:00 79 07/21/21 04:08 97.5 F L 63 20 115/69 93 07/20/21 23:25 97.3 F L 66 18 114/63 95 07/20/21 23:11 184/64 97 07/20/21 23:05 87 07/20/21 21:44 18 07/20/21 20:51 18 96 07/20/21 20:03 97.5 F L 87 18 121/74 97 07/20/21 18:10 177/75 98 07/20/21 18:07 97.2 F L 83 18 129/75 2 L 07/20/21 18:01 162/74 98 07/20/21 17:51 162/74 98 07/20/21 17:41 177/71 99 07/20/21 17:31 162/74 98 07/20/21 17:21 162/74 97 07/20/21 17:11 170/78 96 07/20/21 17:01 174/73 98 07/20/21 16:51 174/73 95 07/20/21 16:41 167/72 95 07/20/21 16:31 155/70 96 07/20/21 16:21 155/70 94 07/20/21 16:11 132/75 94 07/20/21 16:01 143/68 96 07/20/21 15:51 143/68 95 07/20/21 15:41 63/24 94 07/20/21 15:31 63/24 93 07/20/21 15:21 63/24 93 07/20/21 15:11 63/24 95 07/20/21 15:01 63/24 96 07/20/21 14:51 96 07/20/21 14:41 96 07/20/21 14:31 170/67 94 07/20/21 14:21 17067 96 07/20/21 14:11 168/72 96 - Physical Examination General: No Apparent Distress HEENT: Positive: PERRL Neck: Positive: trachea midline Cardiac: Positive: irregularly irregular Lungs: Positive: Normal Breath Sounds Neuro: Positive: Grossly Intact Abdomen: Positive: Soft, Active Bowel Sounds Skin: Negative: Rash, Suspicious Lesions, Ulceration Extremities: Present: upper extr. pulses, lower extr. pulses, +2 Edema - Labs and Meds CBC 07/21/21 Range/Units 06:02 WBC 5.6 (4.5-11.0) K/mm3 RBC 3.01 L (3.65-5.03) M/mm3 Hgb 11.2 L (11.8-15.2) gm/dl Hct 33.2 L (35.5-45.6) % Plt Count 97 L (140-440) K/mm3 Comprehensive Metabolic Panel 07/21/21 Range/Units 06:02 Sodium 137 (137-145) mmol/L Potassium 3.9 (3.6-5.0) mmol/L Chloride 99.7 (98-107) mmol/L Carbon Dioxide 23 (22-30) mmol/L BUN 48 H (9-20) mg/dL Creatinine 3.1 H (0.8-1.3) mg/dL Glucose 154 H (75-100) mg/dL Calcium 9.0 (8.4-10.2) mg/dL - Imaging and Cardiology EKG: report reviewed, image reviewed Nuclear stress test: pending Echo: report reviewed - Telemetry EKG Rhythm: Atrial Fibrillation - EKG Supraventricular dysrhythmia: atrial fibrillation
--- NOTE | 2021-07-21 14:13 | Progress Note ---
Assessment and Plan Assessment and plan: Acute on chronic systolic CHF exacerbation. Atrial fibrillation with RVR Acute kidney injury on CKD 3. Nicotine dependence. Obesity hypoventilation syndrome. Hypertension. Diabetes mellitus type 2. Elevated troponin 07/20/2021. BNP elevated on admission at 18,662. Troponin is also elevated 0.69 and 0.067 respectively. Chest x-ray revealed bilateral right greater than left pleural effusions with bibasilar opacities. Follow-up echocardiogram to assess systolic/diastolic function. Await cardiology recommendations. Continue diuresis per cardiology. Amiodarone discontinued. Continue diltiazem 30 mg p.o. 6 hours for rate control. Continue anticoagulation with Eliquis 2.5 mg twice daily. Follow-up urine studies and renal ultrasound per nephrology recommendations. Renal prognosis is guarded. 07/21/2021 Patient with afib with RVR, Acute on chronic systolic CHF, EF 15-20%. CXR with bilateral pleural effusions, bibasilar opacities. Will repeat in am. Also has UTI. Now has fever. Start Ceftriaxone. Obtain blood cultures. History Interval history: Initially SOB, palpitations, found to have CHF exacerbation Now has fever 101.7 Hospitalist Physical - Physical exam Narrative exam: Gen: Not in acute distress, lying in bed HEENT: Normocephalic, atraumatic Neck: supple, Lungs: Clear to auscultation bilaterally, no wheeze Heart: S1 and S2 irreg, irreg no murmurs, rubs or gallop Abd:soft, non-tender, non distended, normal bowel sounds Ext: Bilateral gross pitting pedal edema, no clubbing or cyanosis Neuro: Awake, alert, oriented X 3, moves all extremities - Constitutional Vitals: Temp Pulse Resp BP Pulse Ox 97.1 F L 82 12 111/63 98 07/21/21 11:38 07/21/21 11:38 07/21/21 11:38 07/21/21 11:38 07/21/21 11:38 General appearance: Present: no acute distress HEART Score - HEART Score EKG: Non-specific Age: > 65 Risk factors: 1-2 risk factors Troponin: Troponin T 0.067 ng/mL (0.00-0.029) H 07/19/21 14:13 Troponin: 1-3x normal limit Results - Labs CBC & Chem 7: 07/21/21 06:02 07/22/21 04:57 Labs: Laboratory Last Values WBC 5.6 K/mm3 (4.5-11.0) 07/21/21 06:02 RBC 3.01 M/mm3 (3.65-5.03) L 07/21/21 06:02 Hgb 11.2 gm/dl (11.8-15.2) L 07/21/21 06:02 Hct 33.2 % (35.5-45.6) L 07/21/21 06:02 MCV 110 fl (84-94) H 07/21/21 06:02 MCH 37 pg (28-32) H 07/21/21 06:02 MCHC 34 % (32-34) 07/21/21 06:02 RDW 18.6 % (13.2-15.2) H 07/21/21 06:02 Plt Count 97 K/mm3 (140-440) L 07/21/21 06:02 Lymph % (Auto) 20.7 % (13.4-35.0) 07/19/21 11:27 [place] % (Auto) 9.7 % (0.0-7.3) H 07/19/21 11:27 Eos % (Auto) 1.4 % (0.0-4.3) 07/19/21 11:27 Baso % (Auto) 1.8 % (0.0-1.8) 07/19/21 11:27 Lymph # (Auto) 1.1 K/mm3 (1.2-5.4) L 07/19/21 11:27 [place] # (Auto) 0.5 K/mm3 (0.0-0.8) 07/19/21 11:27 Eos # (Auto) 0.1 K/mm3 (0.0-0.4) 07/19/21 11:27 Baso # (Auto) 0.1 K/mm3 (0.0-0.1) 07/19/21 11:27 Seg Neutrophils % 66.4 % (40.0-70.0) 07/19/21 11:27 Seg Neutrophils # 3.6 K/mm3 (1.8-7.7) 07/19/21 11:27 PT 14.9 Sec. (12.2-14.9) 07/19/21 15:15 INR 1.12 (0.87-1.13) 07/19/21 15:15 APTT 28.6 Sec. (24.2-36.6) 07/19/21 15:15 Sodium 137 mmol/L (137-145) 07/21/21 06:02 Potassium 3.9 mmol/L (3.6-5.0) 07/21/21 06:02 Chloride 99.7 mmol/L (98-107) 07/21/21 06:02 Carbon Dioxide 23 mmol/L (22-30) 07/21/21 06:02 Anion Gap 18 mmol/L 07/21/21 06:02 BUN 48 mg/dL (9-20) H 07/21/21 06:02 Creatinine 3.1 mg/dL (0.8-1.3) H 07/21/21 06:02 Estimated GFR 20 ml/min 07/21/21 06:02 BUN/Creatinine Ratio 15 % 07/21/21 06:02 Glucose 154 mg/dL (75-100) H 07/21/21 06:02 Calcium 9.0 mg/dL (8.4-10.2) 07/21/21 06:02 Magnesium 2.40 mg/dL (1.7-2.3) H 07/19/21 16:41 Total Bilirubin 0.60 mg/dL (0.1-1.2) 07/19/21 11:27 AST 23 units/L (5-40) 07/19/21 11:27 ALT 18 units/L (7-56) 07/19/21 11:27 Alkaline Phosphatase 135 units/L (35-129) H 07/19/21 11:27 Total Creatine Kinase 85 units/L (55-170) 07/19/21 11:27 Troponin T 0.067 ng/mL (0.00-0.029) H 07/19/21 14:13 NT-Pro-B Natriuret Pep 82190 pg/mL (0-900) H 07/19/21 11:27 Total Protein 7.2 g/dL (6.3-8.2) 07/19/21 11:27 Albumin 3.7 g/dL (3.9-5) L 07/19/21 11:27 Albumin/Globulin Ratio 1.1 % 07/19/21 11: Triglycerides 127 mg/dL (2-149) 07/19/21 11:27 Cholesterol 138 mg/dL (50-199) 07/19/21 11:27 LDL Cholesterol Direct 80 mg/dL (50-130) 07/19/21 11:27 HDL Cholesterol 33 mg/dL (40-59) L 07/19/21 11:27 Cholesterol/HDL Ratio 4.18 % 07/19/21 11:27 TSH 2.410 mlU/mL (0.270-4.200) 07/19/21 16:41 Free T4 1.22 ng/dL (0.76-1.46) 07/19/21 16:41 Urine Color Yellow (Yellow) 07/20/21 Unknown Urine Turbidity Slightly-cloudy (Clear) 07/20/21 Unknown Urine pH 5.0 (5.0-7.0) 07/20/21 Unknown Ur Specific [place] 1.016 (1.003-1.030) 07/20/21 Unknown Urine Protein 100 mg/dl mg/dL (Negative) 07/20/21 Unknown Urine Glucose (UA) 50 mg/dL (Negative) 07/20/21 Unknown Urine Ketones Neg mg/dL (Negative) 07/20/21 Unknown Urine Blood Neg (Negative) 07/20/21 Unknown Urine Nitrite Neg (Negative) 07/20/21 Unknown Urine Bilirubin Neg (Negative) 07/20/21 Unknown Urine Urobilinogen < 2.0 mg/dL (<2.0) 07/20/21 Unknown Ur Leukocyte Esterase Mod (Negative) 07/20/21 Unknown Urine WBC (Auto) 43.0 /HPF (0.0-6.0) H 07/20/21 Unknown Urine RBC (Auto) 30.0 /HPF (0.0-6.0) 07/20/21 Unknown U Epithel Cells (Auto) 21.0 /HPF (0-13.0) H 07/20/21 Unknown Urine Bacteria (Auto) 1+ /HPF (Negative) 07/20/21 Unknown Hyaline Casts 15 /LPF 07/20/21 Unknown WBC Casts 8 /LPF 07/20/21 Unknown Urine Mucus Few /HPF 07/20/21 Unknown Urine Creatinine 136.0 mg/dL (0.1-20.0) H 07/20/21 Unknown Protein/Creatinin Ratio 0.68 07/20/21 Unknown Urine Sodium 42 mmol/L 07/20/21 Unknown Urine Total Protein 92 mg/dL (5-11.8) H 07/20/21 Unknown Microbiology: Microbiology 07/20/21 Unknown Urine,Clean Catch Urine Culture - Preliminary NO GROWTH AFTER 24 HOURS Active Medications - Current Medications Current Medications: Generic Name Dose Route Start Last Admin Trade Name Freq PRN Reason Stop Dose Admin Acetaminophen 650 mg 07/19/21 15:03 Acetaminophen 325 Mg Tab PO Q4H PRN Pain MILD(1-3)/Fever >100.5/AVILA Albuterol 2.5 mg 07/19/21 15:03 Albuterol 2.5 Mg/3 Ml Nebu IH Q4H PRN Shortness Of Breath Apixaban 2.5 mg 07/19/21 22:00 07/21/21 10:32 Apixaban 2.5 Mg Tab PO 2.5 mg Q12HR RIC Administration Protocol Famotidine 10 mg 07/20/21 22:00 07/21/21 10:32 Famotidine 20 Mg Tab PO 10 mg BID RIC Administration Hydromorphone HCl 0.5 mg 07/19/21 15:03 Hydromorphone 1 Mg/1 Ml Inj IV Q23H PRN Pain , Severe (7-10) Metoprolol Tartrate 25 mg 07/21/21 20:00 Metoprolol Tartrate 25 Mg Tab PO TID RIC Ondansetron HCl 4 mg 07/19/21 15:03 07/21/21 08:57 Ondansetron 4 Mg/2 Ml Inj IV 4 mg Q8H PRN Administration Nausea And Vomiting Oxycodone/Acetaminophen 1 tab 07/19/21 15:03 07/21/21 12:36 Oxycodone /Acetaminophen 5-325mg Tab PO 1 tab Q16H PRN Administration Pain, Moderate (4-6) Sodium Chloride 10 ml 07/19/21 22:00 07/21/21 10:32 Sodium Chloride 0.9% 10 Ml Flush Syringe IV 10 ml BID RIC Administration Sodium Chloride 10 ml 07/19/21 15:03 Sodium Chloride 0.9% 10 Ml Flush Syringe IV PRN PRN LINE FLUSH
--- NOTE | 2021-07-21 15:26 | Treadmill Report ---
DATE OF SERVICE: 07/21/2021 NUCLEAR PERFUSION SCAN REFERRING PHYSICIAN: Hospitalist service. PROTOCOL: The patient was assessed in postoperative state given 10 mCi of technetium at rest. The patient had rest imaging. The patient underwent Lexiscan stress test per standard protocol. At peak stress, the patient given 26 mCi technetium-99m. Shortly thereafter, the patient had stress imaging. Raw imaging reveals mild GI artifact, no significant motion effect. SPECT imaging examined carefully in horizontal long axis, vertical long axis, short axis views. Technically difficult study due to GI artifact, no significant fixed or reversible perfusion defect identified, probably normal, gaiting not performed due to presence of atrial fibrillation. CONCLUSIONS: 1. Technically difficult study, but probably normal without evidence of significant degree of ischemia or prior infarction. 2. No gaiting due to atrial fibrillation. TID: [id number] RECEIPT: [id number] GUIDO/OPAL
[2021-07-21] MEDS: cefTRIAXone/NS 1 GM/50 ML 1 GM/50 ML BAG IV SCH (18:07)
[2021-07-21] MEDS: METOPROLOL TARTRATE 25 MG TAB PO SCH (21:09)
[2021-07-22] MEDS: ONDANSETRON 4 MG/2 ML INJ IV PRN ×3 (00:10→18:08)
[2021-07-22] MEDS: oxyCODONE /ACETAMINOPHEN 5-325MG TAB PO PRN ×2 (01:21→12:42)
[2021-07-22 06:30] LABS: Calcium 9.1 mg/dL (8.4-10.2)
--- NOTE | 2021-07-22 09:14 | XRay Report ---
CHEST 1 VIEW INDICATION: bilateral opacities, bilat pleural effusion. COMPARISON: 07/19/2021 FINDINGS: Support devices: None. Heart: Within normal limits. Lungs/Pleura: Small right pleural effusion appears stable. There is a new or increasing small left pl eural effusion. Bibasilar opacities have resolved. The lungs are generally clear. No pneumothorax. Additional findings: None. IMPRESSION: Improvement in the bibasilar airspace opacities. Stable small right pleural effusion. New or increas ing small left pleural effusion. Signer Name: Obed Mcnamara Jr, MD Signed: 07/22/2021 9:09 AM Workstation Name: [id number]
--- NOTE | 2021-07-22 10:57 | Progress Note ---
Assessment and Plan 1. Acute kidney injury: CONCETTA superimposed on CKD-3 in the setting of decompensated CHF. Renal US negative. Monitor renal function. Creatinine level remains high. Renal prognosis is guarded. Avoid nephrotoxic agents. Meds dosage based on GFR. 2. FEN: Mild metabolic acidosis, monitor. Volume overload, diuretics as BP allows. Monitor lytes and volume status. 3. A.fib with RVR: On Metoprolol and Eliquis. Monitor. 4. Decompensated CHF / Elevated troponin, POA: Followed by Cards. Monitor. 5. DM-2. 6. HTN. 7. Tobacco use: Counseled. Subjective: Patient was seen and examined at the bedside. Examination: General appearance: obese, well-developed, appears stated age, not in distress HEENT: atraumatic Neck: trachea midline Respiratory: diminished breath sounds Heart: S1S2, irregular, no murmur Abdomen: soft, obese, bowel sounds heard, Integumentary: LE discoloration, extensive erythema noted Neurologic: AO, able to move extremities Ext: 1+ LE edema Subjective Date of service: 07/22/21 Principal diagnosis: HFrEF,Afib Objective - Vital Signs Vital signs: Vital Signs - 12hr 07/21/21 07/22/21 07/22/21 23:00 00:01 00:20 Temperature 98.2 F Pulse Rate 88 55 L 77 Respiratory 18 Rate Respiratory Rate [BLE] Blood Pressure 99/69 Blood Pressure 112/58 [Left] O2 Sat by Pulse 95 98 Oximetry 07/22/21 07/22/21 07/22/21 02:21 03:40 04:00 Temperature 98.4 F Pulse Rate 59 L 78 Respiratory 17 18 Rate Respiratory 17 Rate [BLE] Blood Pressure 115/81 Blood Pressure [Left] O2 Sat by Pulse 98 Oximetry - Lab 07/23/21 05:19 07/23/21 05:19 Most recent lab results Calcium 9.1 mg/dL (8.4-10.2) 07/22/21 04:57 Magnesium 2.40 mg/dL (1.7-2.3) H 07/19/21 16:41 Urine Creatinine 136.0 mg/dL (0.1-20.0) H 07/20/21 Unknown Urine Sodium 42 mmol/L 07/20/21 Unknown Urine Total Protein 92 mg/dL (5-11.8) H 07/20/21 Unknown Medications & Allergies - Medications Allergies/Adverse Reactions: Allergies No Known Allergies Allergy (Verified 07/19/21 10:06) Home Medications: Home Medications Medication Instructions Recorded Confirmed Last Taken Type No Known Home Medications [No 07/19/21 07/19/21 Unknown History Reported Home Medications] Active Medications: Generic Name Dose Route Start Last Admin Trade Name Freq PRN Reason Stop Dose Admin Acetaminophen 650 mg 07/19/21 15:03 Acetaminophen 325 Mg Tab PO Q4H PRN Pain MILD(1-3)/Fever >100.5/AVILA Albuterol 2.5 mg 07/19/21 15:03 Albuterol 2.5 Mg/3 Ml Nebu IH Q4H PRN Shortness Of Breath Apixaban 2.5 mg 07/19/21 22:00 07/21/21 21:08 Apixaban 2.5 Mg Tab PO 2.5 mg Q12HR RIC Administration Protocol Famotidine 10 mg 07/20/21 22:00 07/21/21 21:08 Famotidine 20 Mg Tab PO 10 mg BID RIC Administration Hydromorphone HCl 0.5 mg 07/19/21 15:03 Hydromorphone 1 Mg/1 Ml Inj IV Q23H PRN Pain , Severe (7-10) Ceftriaxone Sodium 1 gm in 50 mls @ 100 mls/hr 07/21/21 18:00 07/21/21 18:07 Rocephin/Ns 1 Gm/50 Ml IV 100 mls/hr Q24H RIC Administration Protocol Metoprolol Tartrate 25 mg 07/21/21 20:00 07/21/21 21:09 Metoprolol Tartrate 25 Mg Tab PO 25 mg TID RIC Administration Ondansetron HCl 4 mg 07/19/21 15:03 07/22/21 08:05 Ondansetron 4 Mg/2 Ml Inj IV 4 mg Q8H PRN Administration Nausea And Vomiting Oxycodone/Acetaminophen 1 tab 07/19/21 15:03 07/22/21 01:21 Oxycodone /Acetaminophen 5-325mg Tab PO 1 tab Q16H PRN Administration Pain, Moderate (4-6) Sodium Chloride 10 ml 07/19/21 22:00 07/21/21 21:11 Sodium Chloride 0.9% 10 Ml Flush Syringe IV 10 ml BID RIC Administration Sodium Chloride 10 ml 07/19/21 15:03 Sodium Chloride 0.9% 10 Ml Flush Syringe IV PRN PRN LINE FLUSH
[2021-07-22] MEDS: FAMOTIDINE 20 MG TAB PO SCH ×2 (11:01→22:08)
[2021-07-22] MEDS: APIXABAN 2.5 MG TAB PO SCH ×2 (11:02→22:08)
[2021-07-22] MEDS: METOPROLOL TARTRATE 25 MG TAB PO SCH ×4 (11:05→22:00)
--- NOTE | 2021-07-22 11:25 | Progress Note ---
Assessment and Plan Assessment and plan: Acute on chronic systolic CHF exacerbation. Atrial fibrillation with RVR Acute kidney injury on CKD 3. Nicotine dependence. Obesity hypoventilation syndrome. Hypertension. Diabetes mellitus type 2. Elevated troponin 07/20/2021. BNP elevated on admission at 18,662. Troponin is also elevated 0.69 and 0.067 respectively. Chest x-ray revealed bilateral right greater than left pleural effusions with bibasilar opacities. Follow-up echocardiogram to assess systolic/diastolic function. Await cardiology recommendations. Continue diuresis per cardiology. Amiodarone discontinued. Continue diltiazem 30 mg p.o. 6 hours for rate control. Continue anticoagulation with Eliquis 2.5 mg twice daily. Follow-up urine studies and renal ultrasound per nephrology recommendations. Renal prognosis is guarded. 07/21/2021 Patient with afib with RVR, Acute on chronic systolic CHF, EF 15-20%. CXR with bilateral pleural effusions, bibasilar opacities. Will repeat in am. Also has UTI. Now has fever. Start Ceftriaxone. Obtain blood cultures. 07/22/2021 Patient with afib with RVR, Acute on chronic systolic CHF, EF 15-20%. CXR with bilateral pleural effusions, bibasilar opacities. Yesterday had fever of 101.7 . Also has UTI. Started Ceftriaxone for UTI. Obtained blood cultures. Consulted ID to see. Cardiology planning on cardiac cath when Creatinine normalizes. History Interval history: Initially SOB, palpitations, found to have CHF exacerbation Now has fever 101.7 Hospitalist Physical - Physical exam Narrative exam: Gen: Not in acute distress, lying in bed HEENT: Normocephalic, atraumatic Neck: supple, Lungs: Clear to auscultation bilaterally, no wheeze Heart: S1 and S2 irreg, irreg no murmurs, rubs or gallop Abd:soft, non-tender, non distended, normal bowel sounds Ext: Bilateral gross pitting pedal edema, no clubbing or cyanosis Neuro: Awake, alert, oriented X 3, moves all extremities - Constitutional Vitals: Temp Pulse Resp BP Pulse Ox 96.9 F L 78 20 119/75 98 07/22/21 08:10 07/22/21 04:00 07/22/21 08:10 07/22/21 11:05 07/22/21 03:40 General appearance: Present: no acute distress HEART Score - HEART Score EKG: Non-specific Age: > 65 Risk factors: 1-2 risk factors Troponin: Troponin T 0.067 ng/mL (0.00-0.029) H 07/19/21 14:13 Troponin: 1-3x normal limit Results - Labs CBC & Chem 7: 07/21/21 06:02 07/22/21 04:57 Labs: Laboratory Last Values WBC 5.6 K/mm3 (4.5-11.0) 07/21/21 06:02 RBC 3.01 M/mm3 (3.65-5.03) L 07/21/21 06:02 Hgb 11.2 gm/dl (11.8-15.2) L 07/21/21 06:02 Hct 33.2 % (35.5-45.6) L 07/21/21 06:02 MCV 110 fl (84-94) H 07/21/21 06:02 MCH 37 pg (28-32) H 07/21/21 06:02 MCHC 34 % (32-34) 07/21/21 06:02 RDW 18.6 % (13.2-15.2) H 07/21/21 06:02 Plt Count 97 K/mm3 (140-440) L 07/21/21 06:02 Lymph % (Auto) 20.7 % (13.4-35.0) 07/19/21 11:27 Tyler % (Auto) 9.7 % (0.0-7.3) H 07/19/21 11:27 Eos % (Auto) 1.4 % (0.0-4.3) 07/19/21 11:27 Baso % (Auto) 1.8 % (0.0-1.8) 07/19/21 11:27 Lymph # (Auto) 1.1 K/mm3 (1.2-5.4) L 07/19/21 11:27 Tyler # (Auto) 0.5 K/mm3 (0.0-0.8) 07/19/21 11:27 Eos # (Auto) 0.1 K/mm3 (0.0-0.4) 07/19/21 11:27 Baso # (Auto) 0.1 K/mm3 (0.0-0.1) 07/19/21 11:27 Seg Neutrophils % 66.4 % (40.0-70.0) 07/19/21 11:27 Seg Neutrophils # 3.6 K/mm3 (1.8-7.7) 07/19/21 11:27 PT 14.9 Sec. (12.2-14.9) 07/19/21 15:15 INR 1.12 (0.87-1.13) 07/19/21 15:15 APTT 28.6 Sec. (24.2-36.6) 07/19/21 15:15 Sodium 139 mmol/L (137-145) 07/22/21 04:57 Potassium 4.1 mmol/L (3.6-5.0) 07/22/21 04:57 Chloride 101.6 mmol/L (98-107) 07/22/21 04:57 Carbon Dioxide 22 mmol/L (22-30) 07/22/21 04:57 Anion Gap 20 mmol/L 07/22/21 04:57 BUN 52 mg/dL (9-20) H 07/22/21 04:57 Creatinine 3.3 mg/dL (0.8-1.3) H 07/22/21 04:57 Estimated GFR 19 ml/min 07/22/21 04:57 BUN/Creatinine Ratio 16 % 07/22/21 04:57 Glucose 160 mg/dL (75-100) H 07/22/21 04:57 POC Glucose 159 mg/dL (70-105) H 07/22/21 11:11 Calcium 9.1 mg/dL (8.4-10.2) 07/22/21 04:57 Magnesium 2.40 mg/dL (1.7-2.3) H 07/19/21 16:41 Total Bilirubin 0.60 mg/dL (0.1-1.2) 07/19/21 11:27 AST 23 units/L (5-40) 07/19/21 11:27 ALT 18 units/L (7-56) 07/19/21 11:27 Alkaline Phosphatase 135 units/L (35-129) H 07/19/21 11:27 Total Creatine Kinase 85 units/L (55-170) 07/19/21 11:27 Troponin T 0.067 ng/mL (0.00-0.029) H 07/19/21 14:13 NT-Pro-B Natriuret Pep 06147 pg/mL (0-900) H 07/19/21 11:27 Total Protein 7.2 g/dL (6.3-8.2) 07/19/21 11:27 Albumin 3.7 g/dL (3.9-5) L 07/19/21 11:27 Albumin/Globulin Ratio 1.1 % 07/19/21 11:27 Triglycerides 127 mg/dL (2-149) 07/19/21 11:27 Cholesterol 138 mg/dL (50-199) 07/19/21 11:27 LDL Cholesterol Direct 80 mg/dL (50-130) 07/19/21 11:27 HDL Cholesterol 33 mg/dL (40-59) L 07/19/21 11:27 Cholesterol/HDL Ratio 4.18 % 07/19/21 11:27 TSH 2.410 mlU/mL (0.270-4.200) 07/19/21 16:41 Free T4 1.22 ng/dL (0.76-1.46) 07/19/21 16:41 Urine Color Yellow (Yellow) 07/20/21 Unknown Urine Turbidity Slightly-cloudy (Clear) 07/20/21 Unknown Urine pH 5.0 (5.0-7.0) 07/20/21 Unknown Ur Specific Martin 1.016 (1.003-1.030) 07/20/21 Unknown Urine Protein 100 mg/dl mg/dL (Negative) 07/20/21 Unknown Urine Glucose (UA) 50 mg/dL (Negative) 07/20/21 Unknown Urine Ketones Neg mg/dL (Negative) 07/20/21 Unknown Urine Blood Neg (Negative) 07/20/21 Unknown Urine Nitrite Neg (Negative) 07/20/21 Unknown Urine Bilirubin Neg (Negative) 07/20/21 Unknown Urine Urobilinogen < 2.0 mg/dL (<2.0) 07/20/21 Unknown Ur Leukocyte Esterase Mod (Negative) 07/20/21 Unknown Urine WBC (Auto) 43.0 /HPF (0.0-6.0) H 07/20/21 Unknown Urine RBC (Auto) 30.0 /HPF (0.0-6.0) 07/20/21 Unknown U Epithel Cells (Auto) 21.0 /HPF (0-13.0) H 07/20/21 Unknown Urine Bacteria (Auto) 1+ /HPF (Negative) 07/20/21 Unknown Hyaline Casts 15 /LPF 07/20/21 Unknown WBC Casts 8 /LPF 07/20/21 Unknown Urine Mucus Few /HPF 07/20/21 Unknown Urine Creatinine 136.0 mg/dL (0.1-20.0) H 07/20/21 Unknown Protein/Creatinin Ratio 0.68 07/20/21 Unknown Urine Sodium 42 mmol/L 07/20/21 Unknown Urine Total Protein 92 mg/dL (5-11.8) H 07/20/21 Unknown Microbiology: Microbiology 07/20/21 Unknown Urine,Clean Catch Urine Culture - Final 07/21/21 18:17 Peripheral/Venous Blood Culture - Preliminary Culture in Progress 07/21/21 18:11 Peripheral/Venous Blood Culture - Preliminary Culture in Progress Bain/IV: Voiding Method Bedside Commode Active Medications - Current Medications Current Medications: Generic Name Dose Route Start Last Admin Trade Name Freq PRN Reason Stop Dose Admin Acetaminophen 650 mg 07/19/21 15:03 Acetaminophen 325 Mg Tab PO Q4H PRN Pain MILD(1-3)/Fever >100.5/AVILA Albuterol 2.5 mg 07/19/21 15:03 Albuterol 2.5 Mg/3 Ml Nebu IH Q4H PRN Shortness Of Breath Apixaban 2.5 mg 07/19/21 22:00 07/22/21 11:02 Apixaban 2.5 Mg Tab PO 2.5 mg Q12HR RIC Administration Protocol Famotidine 10 mg 07/20/21 22:00 07/22/21 11:01 Famotidine 20 Mg Tab PO 10 mg BID RIC Administration Hydromorphone HCl 0.5 mg 07/19/21 15:03 Hydromorphone 1 Mg/1 Ml Inj IV Q23H PRN Pain , Severe (7-10) Ceftriaxone Sodium 1 gm in 50 mls @ 100 mls/hr 07/21/21 18:00 07/21/21 18:07 Rocephin/Ns 1 Gm/50 Ml IV 100 mls/hr Q24H RIC Administration Protocol Metoprolol Tartrate 25 mg 07/21/21 20:00 07/22/21 11:05 Metoprolol Tartrate 25 Mg Tab PO 25 mg TID RIC Administration Ondansetron HCl 4 mg 07/19/21 15:03 07/22/21 08:05 Ondansetron 4 Mg/2 Ml Inj IV 4 mg Q8H PRN Administration Nausea And Vomiting Oxycodone/Acetaminophen 1 tab 07/19/21 15:03 07/22/21 01:21 Oxycodone /Acetaminophen 5-325mg Tab PO 1 tab Q16H PRN Administration Pain, Moderate (4-6) Sodium Chloride 10 ml 07/19/21 22:00 07/22/21 11:09 Sodium Chloride 0.9% 10 Ml Flush Syringe IV 10 ml BID RIC Administration Sodium Chloride 10 ml 07/19/21 15:03 Sodium Chloride 0.9% 10 Ml Flush Syringe IV PRN PRN LINE FLUSH
--- NOTE | 2021-07-22 13:17 | Progress Note ---
Assessment and Plan Patient is a 71 y/o male with a pmhx of CHF, HTN, COVID-19, and CKD who presented with a complaint of worsening SOB and palpitations x2 days Afib w/RVR HFrEF HTN * EKG shows afib w/rvr 138. No acute ischemic changes. * Telemetry reviewed: Afib 80s * BNP noted to be elevated and patient has BLE edema Chest x-ray revealed bilate ral right greater than left pleural effusions with bibasilar opacities * Troponins noted to be minimally elevated in setting of CHF and CONCETTA * Patient currently on Metoprolol 25mg PO TID, Eliquis 2.5mg PO BID * Echo 07/19/2021-EF 15 to 20%, severe global hypokinesis of left ventricle, mild concentric left ventricular hypertrophy, mild aortic regurgitation, there is aortic stenosis unable to determine peak velocity due to A. fib, moderate tricuspid regurgitation, moderate pulmonary hypertension * Lexiscan MPI stress test 07/21/2021-Technically difficult study, but probably normal without evidence of significant ischemia or prior infarction. No gating due to atrial fibrillation CONCETTA on CKD * Patient creatinine 3.5 this admission. Upon review of outside records this is noted to be higher than his baseline of 1.4 * Nephrology following Plan: Continue metoprolol 25mg PO TID for rate control. Continue Eliquis. Will hold MILAGRO/ARB and lasix in setting of CONCETTA. When renal function returns to baseline and pending ok form nephrology will plan for [facility] Patient seen in conjunction with Dr. Munoz who agrees with this plan of care. Will continue to follow. - Patient Problems (1) Acute kidney injury (CONCETTA) with acute tubular necrosis (ATN) Current Visit: Yes Status: Acute (2) Atrial fibrillation with RVR Current Visit: Yes Status: Acute (3) CHF exacerbation Current Visit: Yes Status: Acute Qualifiers: Heart failure type: systolic Qualified Code(s): I50.23 - Acute on chronic systolic (congestive) heart failure (4) Chest pain Current Visit: Yes Status: Acute (5) Nicotine dependence Current Visit: Yes Status: Acute Qualifiers: Nicotine product type: cigarettes Substance use status: in withdrawal Qualified Code(s): F17.213 - Nicotine dependence, cigarettes, with withdrawal (6) Obesity hypoventilation syndrome Current Visit: Yes Status: Acute Subjective Date of service: 07/22/21 Principal diagnosis: HFrEF,Afib Interval history: Patient lying in bed. He reports feeling slightly nauseous Afib 80s on monitor Objective Vital Signs Temp Pulse Resp Resp BP BP Pulse Ox 07/22/21 11:05 119/75 07/22/21 08:10 96.9 F L 20 119/75 07/22/21 04:00 78 17 07/22/21 03:40 98.4 F 59 L 18 115/81 98 07/22/21 02:21 17 07/22/21 00:20 77 112/58 98 07/22/21 00:01 98.2 F 55 L 18 99/69 95 07/21/21 23:00 88 07/21/21 21:31 99 07/21/21 21:09 108 H 110/60 07/21/21 20:00 98 07/21/21 19:08 97.8 F 59 L 20 89/58 97 07/21/21 18:00 97.7 F 07/21/21 15:56 101.7 F H 100 H 22 125/78 96 07/21/21 15:00 84 - Physical Examination General: No Apparent Distress HEENT: Positive: PERRL Neck: Positive: trachea midline Cardiac: Positive: irregularly irregular Lungs: Positive: Decreased Breath Sounds Neuro: Positive: Grossly Intact Abdomen: Positive: Soft, Active Bowel Sounds Skin: Negative: Rash, Suspicious Lesions, Ulceration Extremities: Present: upper extr. pulses, lower extr. pulses, +2 Edema - Labs and Meds Comprehensive Metabolic Panel 07/22/21 Range/Units 04:57 Sodium 139 (137-145) mmol/L Potassium 4.1 (3.6-5.0) mmol/L Chloride 101.6 (98-107) mmol/L Carbon Dioxide 22 (22-30) mmol/L BUN 52 H (9-20) mg/dL Creatinine 3.3 H (0.8-1.3) mg/dL Glucose 160 H (75-100) mg/dL Calcium 9.1 (8.4-10.2) mg/dL - Imaging and Cardiology EKG: report reviewed, image reviewed Echo: report reviewed - Telemetry EKG Rhythm: Atrial Fibrillation - EKG Supraventricular dysrhythmia: atrial fibrillation
--- NOTE | 2021-07-22 16:18 | Consultation ---
History of Present Illness - Reason for Consult Consult date: 07/22/21 - History of Present Illness 71-year-old man past medical history CHF, SD presented to the hospital complaining of palpitations and shortness of breath. This began proximately 2 weeks prior to admission and was intermittent, but was progressively worse over the 2 days prior to admission. During imaging he was found to have fever of 101.7, however he remained asymptomatic, and denied noticing he had a fever. Normal white count recognition. Currently on ceftriaxone. Urine with moderate pyuria, however significant epithelial cells. Cultures with no growth so far. Ridging personally: Chest x-ray: Improvement in bibasilar airspace opacities. Review of Systems: Bold if positive, otherwise negative General: fevers, chills, rigors HEENT: visual disturbance, diplopia, eye pain Respiratory: cough, sputum, hemoptysis, shortness of breath Cardiovascular: chest pain, syncope Gastrointestinal: nausea, vomiting, diarrhea, abdominal pain Genitourinary: dysuria, hematuria, flank pain Musculoskeletal: neck pain, back pain, joint pain, edema Neurologic: headaches, seizures Hematologic: easy bruising or bleeding Endocrine: night sweats, acute weight loss Skin: rash, jaundice, redness Psychiatric: suicidal, homicidal ideation Past History Past Medical History: diabetes, heart failure, hypertension, hyperlipidemia, renal failure, other (See HPI) Past Surgical History: Other (Right elbow surgery) Social history: single, smoking Family history: hypertension Medications and Allergies Allergies Allergy/AdvReac Type Severity Reaction Status Date / Time No Known Allergies Allergy Verified 07/19/21 10:06 Home Medications Medication Instructions Recorded Confirmed Last Taken Type No Known Home Medications [No 07/19/21 07/19/21 Unknown History Reported Home Medications] Active Meds: Active Medications Acetaminophen (Acetaminophen 325 Mg Tab) 650 mg PO Q4H PRN PRN Reason: Pain MILD(1-3)/Fever >100.5/AVILA Albuterol (Albuterol 2.5 Mg/3 Ml Nebu) 2.5 mg IH Q4H PRN PRN Reason: Shortness Of Breath Apixaban (Apixaban 2.5 Mg Tab) 2.5 mg PO Q12HR [facility]; Protocol Last Admin: 07/22/21 11:02 Dose: 2.5 mg Documented by: Famotidine (Famotidine 20 Mg Tab) 10 mg PO BID RIC Last Admin: 07/22/21 11:01 Dose: 10 mg Documented by: Hydromorphone HCl (Hydromorphone 1 Mg/1 Ml Inj) 0.5 mg IV Q23H PRN PRN Reason: Pain , Severe (7-10) Ceftriaxone Sodium (Rocephin/Ns 1 Gm/50 Ml) 1 gm in 50 mls @ 100 mls/hr IV Q24H [facility]; Protocol Last Admin: 07/21/21 18:07 Dose: 100 mls/hr Documented by: Metoprolol Tartrate (Metoprolol Tartrate 25 Mg Tab) 25 mg PO TID [facility] Last Admin: 07/22/21 15:39 Dose: 25 mg Documented by: Ondansetron HCl (Ondansetron 4 Mg/2 Ml Inj) 4 mg IV Q8H PRN PRN Reason: Nausea And Vomiting Last Admin: 07/22/21 08:05 Dose: 4 mg Documented by: Oxycodone/Acetaminophen (Oxycodone /Acetaminophen 5-325mg Tab) 1 tab PO Q16H PRN PRN Reason: Pain, Moderate (4-6) Last Admin: 07/22/21 12:42 Dose: 1 tab Documented by: Sodium Chloride (Sodium Chloride 0.9% 10 Ml Flush Syringe) 10 ml IV BID [facility] Last Admin: 07/22/21 11:09 Dose: 10 ml Documented by: Sodium Chloride (Sodium Chloride 0.9% 10 Ml Flush Syringe) 10 ml IV PRN PRN PRN Reason: LINE FLUSH Physical Examination - Physical Exam Narrative exam: Physical Exam: Constitutional: Alert, cooperative. No acute distress Head, Ears, Nose: Normocephalic, atraumatic. External ears, nose normal Eyes: Conjunctivae/corneas clear. No icterus. No ptosis. Neck: Supple, no meningeal signs Oral: dentition fair, no thrush Cardiovascular: S1, S2 normal. Respiratory: Good air entry, clear to auscultation bilaterally GI: Soft, non-tender; bowel sounds normal. No peritoneal signs. Musculoskeletal: No pedal edema, no cyanosis. Skin: No rash or abscess Hem/Lymphatic: No palpable cervical or supraclavicular nodes. No lymphangitis Psych: Mood ok. Affect normal Neurological: Awake, alert, oriented. No gross abnormality - Constitutional Vitals: Vital Signs Temp Pulse Resp BP Pulse Ox 96.0 F L 77 16 108/78 98 07/22/21 15:11 07/22/21 15:39 07/22/21 15:11 07/22/21 15:39 07/22/21 03:40 Temperature -Last 24 Hours Temperature 96.0 F Temperature 97.6 F Temperature 96.9 F Temperature 98.4 F Temperature 98.2 F Temperature 97.8 F Temperature 97.7 F Results - Labs CBC & Chem 7: 07/21/21 06:02 07/22/21 04:57 Labs: Abnormal lab results 07/22/21 07/22/21 Range/Units 04:57 11:11 BUN 52 H (9-20) mg/dL Creatinine 3.3 H (0.8-1.3) mg/dL Glucose 160 H (75-100) mg/dL POC Glucose 159 H (70-105) mg/dL Assessment and Plan Cultures: Blood culture no growth so far Urine culture negative A/P: 71-year-old male past medical history CHF, CAD presented to hospital with palpitations, had 1 time fever. #Fevers: Unclear source, possible urinary tract infection with mild pyuria though sample was definitely contaminated with epithelial cells cells #CHF Recs: -Complete 5 days ceftriaxone Thank you for the consult, we will continue to follow. MD Cristy [facility] O: [phone] F: [phone]
[2021-07-22] MEDS: cefTRIAXone/NS 1 GM/50 ML 1 GM/50 ML BAG IV SCH (17:53)
[2021-07-22] MEDS: ACETAMINOPHEN 325 MG TAB PO PRN (20:00)
[2021-07-23] MEDS: ACETAMINOPHEN 325 MG TAB PO PRN (00:34)
[2021-07-23] MEDS: oxyCODONE /ACETAMINOPHEN 5-325MG TAB PO PRN (03:19)
[2021-07-23] MEDS: HYDROmorphone 1 MG/1 ML INJ IV PRN ×2 (04:25→18:35)
[2021-07-23] MEDS: ONDANSETRON 4 MG/2 ML INJ IV PRN (04:26)
[2021-07-23 05:58] LABS: Hematocrit 33.1 % (35.5-45.6); Hemoglobin 11.3 gm/dl (11.8-15.2); Mean Corpuscular HGB Conc 34 % (32-34); Red Blood Count 2.99 M/mm3 (3.65-5.03); Red Cell Distribution Width 18.3 % (13.2-15.2)
[2021-07-23 06:10] LABS: Mean Corpuscular Volume 111 fl (84-94); Platelet Count 86 K/mm3 (140-440)
[2021-07-23 06:20] LABS: Calcium 9.3 mg/dL (8.4-10.2)
[2021-07-23] MEDS: APIXABAN 2.5 MG TAB PO SCH ×2 (09:11→21:43)
[2021-07-23] MEDS: METOPROLOL TARTRATE 25 MG TAB PO SCH ×2 (09:11→14:20)
[2021-07-23] MEDS: FAMOTIDINE 20 MG TAB PO SCH ×2 (09:11→21:42)
--- NOTE | 2021-07-23 09:52 | Progress Note ---
Assessment and Plan 1. Acute kidney injury: CONCETTA superimposed on CKD-3 in the setting of decompensated CHF. Renal US negative. Monitor renal function. Creatinine level remains high. Renal prognosis is guarded. Avoid nephrotoxic agents. Meds dosage based on GFR. 2. FEN: Mild metabolic acidosis, monitor. Volume overload, diuretics as BP allows. Monitor lytes and volume status. 3. A.fib with RVR: On Metoprolol and Eliquis. Monitor. 4. Decompensated CHF / Elevated troponin, POA: Followed by Cards. Monitor. 5. DM-2. 6. HTN. 7. Tobacco use: Counseled. F/u in 1-2 weeks after discharge. Subjective: Patient was seen and examined at the bedside. Patient wants to go home today. Examination: General appearance: obese, well-developed, appears stated age, not in distress HEENT: atraumatic Neck: trachea midline Respiratory: diminished breath sounds Heart: S1S2, irregular, no murmur Abdomen: soft, obese, bowel sounds heard, Integumentary: LE discoloration, extensive erythema noted Neurologic: AO, able to move extremities Ext: 1+ LE edema Subjective Date of service: 07/23/21 Principal diagnosis: HFrEF,Afib Objective - Vital Signs Vital signs: Vital Signs - 12hr 07/22/21 07/22/21 07/23/21 22:00 23:27 03:55 Temperature 98.1 F 98.8 F Pulse Rate 79 84 58 L Respiratory 18 18 Rate Blood Pressure 104/69 113/65 111/55 O2 Sat by Pulse 100 95 Oximetry 07/23/21 07/23/21 08:05 09:11 Temperature 97.8 F Pulse Rate 66 66 Respiratory Rate Blood Pressure 113/85 113/85 O2 Sat by Pulse 98 Oximetry - Lab 07/23/21 05:19 07/23/21 05:19 Most recent lab results Calcium 9.3 mg/dL (8.4-10.2) 07/23/21 05:19 Magnesium 2.40 mg/dL (1.7-2.3) H 07/19/21 16:41 Urine Creatinine 136.0 mg/dL (0.1-20.0) H 07/20/21 Unknown Urine Sodium 42 mmol/L 07/20/21 Unknown Urine Total Protein 92 mg/dL (5-11.8) H 07/20/21 Unknown Medications & Allergies - Medications Allergies/Adverse Reactions: Allergies No Known Allergies Allergy (Verified 07/19/21 10:06) Home Medications: Home Medications Medication Instructions Recorded Confirmed Last Taken Type No Known Home Medications [No 07/19/21 07/19/21 Unknown History Reported Home Medications] Active Medications: Generic Name Dose Route Start Last Admin Trade Name Freq PRN Reason Stop Dose Admin Acetaminophen 650 mg 07/19/21 15:03 07/23/21 00:34 Acetaminophen 325 Mg Tab PO 650 mg Q4H PRN Administration Pain MILD(1-3)/Fever >100.5/AVILA Albuterol 2.5 mg 07/19/21 15:03 Albuterol 2.5 Mg/3 Ml Nebu IH Q4H PRN Shortness Of Breath Apixaban 2.5 mg 07/19/21 22:00 07/23/21 09:11 Apixaban 2.5 Mg Tab PO 2.5 mg Q12HR RIC Administration Protocol Famotidine 10 mg 07/20/21 22:00 07/23/21 09:11 Famotidine 20 Mg Tab PO 10 mg BID RIC Administration Hydromorphone HCl 0.5 mg 07/19/21 15:03 07/23/21 04:25 Hydromorphone 1 Mg/1 Ml Inj IV 0.5 mg Q23H PRN Administration Pain , Severe (7-10) Ceftriaxone Sodium 1 gm in 50 mls @ 100 mls/hr 07/21/21 18:00 07/22/21 17:53 Rocephin/Ns 1 Gm/50 Ml IV 100 mls/hr Q24H RIC Administration Protocol Metoprolol Tartrate 25 mg 07/21/21 20:00 07/23/21 09:11 Metoprolol Tartrate 25 Mg Tab PO 25 mg TID RIC Administration Ondansetron HCl 4 mg 07/19/21 15:03 07/23/21 04:26 Ondansetron 4 Mg/2 Ml Inj IV 4 mg Q8H PRN Administration Nausea And Vomiting Oxycodone/Acetaminophen 1 tab 07/19/21 15:03 07/23/21 03:19 Oxycodone /Acetaminophen 5-325mg Tab PO 1 tab Q16H PRN Administration Pain, Moderate (4-6) Sodium Chloride 10 ml 07/19/21 22:00 07/23/21 09:12 Sodium Chloride 0.9% 10 Ml Flush Syringe IV 10 ml BID RIC Administration Sodium Chloride 10 ml 07/19/21 15:03 Sodium Chloride 0.9% 10 Ml Flush Syringe IV PRN PRN LINE FLUSH
--- NOTE | 2021-07-23 13:39 | Progress Note ---
Assessment and Plan Cultures: Blood culture no growth so far Urine culture negative A/P: 71-year-old male past medical history CHF, CAD presented to hospital with palpitations, had 1 time fever. #Fevers: Unclear source, possible urinary tract infection with mild pyuria though sample was definitely contaminated with epithelial cells cells #CHF Recs: -Complete 5 days ceftriaxone. If discharging would send with omnicef 300mg q12h Thank you for the consult, we will continue to follow. Ken Lugo MD [facility] O: [phone] F: [phone] Subjective Date of service: 07/23/21 Principal diagnosis: HFrEF,Afib Interval history: Remains afebrile, normal white count. Blood cultures remain no growth. No other acute changes. Objective - Exam Narrative Exam: Physical Exam: Constitutional: Alert, cooperative. No acute distress Head, Ears, Nose: Normocephalic, atraumatic. External ears, nose normal Eyes: Conjunctivae/corneas clear. No icterus. No ptosis. Neck: Supple, no meningeal signs Oral: dentition fair, no thrush Cardiovascular: S1, S2 normal. Respiratory: Good air entry, clear to auscultation bilaterally GI: Soft, non-tender; bowel sounds normal. No peritoneal signs. Musculoskeletal: No pedal edema, no cyanosis. Skin: No rash or abscess Hem/Lymphatic: No palpable cervical or supraclavicular nodes. No lymphangitis Psych: Mood ok. Affect normal Neurological: Awake, alert, oriented. No gross abnormality - Constitutional Vitals: Vital Signs Temp Pulse Resp BP Pulse Ox 97.7 F 71 18 99/65 97 07/23/21 12:33 07/23/21 12:33 07/23/21 12:33 07/23/21 12:33 07/23/21 12:33 Temperature -Last 24 Hours Temperature 97.7 F Temperature 97.8 F Temperature 98.8 F Temperature 98.1 F Temperature 98.3 F Temperature 96.0 F - Labs CBC & Chem 7: 07/23/21 05:19 07/23/21 05:19 Labs: Abnormal lab results 07/23/21 07/23/21 Range/Units 05:19 05:19 RBC 2.99 L (3.65-5.03) M/mm3 Hgb 11.3 L (11.8-15.2) gm/dl Hct 33.1 L (35.5-45.6) % MCV 111 H (84-94) fl MCH 38 H (28-32) pg RDW 18.3 H (13.2-15.2) % Plt Count 86 L (140-440) K/mm3 Carbon Dioxide 18 L (22-30) mmol/L BUN 57 H (9-20) mg/dL Creatinine 3.3 H (0.8-1.3) mg/dL Glucose 153 H (75-100) mg/dL
--- NOTE | 2021-07-23 14:34 | Progress Note ---
Assessment and Plan Assessment and plan: Acute on chronic systolic CHF exacerbation. Echo 07/19/2021-EF 15 to 20%, severe global hypokinesis of left ventricle, mild concentric left ventricular hypertrophy, mild aortic regurgitation, there is aortic stenosis unable to determine peak velocity due to A. fib, moderate tricuspid regurgitation, moder ate pulmonary hypertension. Continue Toprol-XL. Cannot be started on MILAGRO or ARB at this time due to acute kidney injury. Atrial fibrillation was in RVR. Rate is currently controlled on beta-abilio. Also on Eliquis. Acute kidney injury on CKD 3. Nicotine dependence. Obesity hypoventilation syndrome. Hypertension. Diabetes mellitus type 2. Elevated troponin. Lexiscan MPI stress test 07/21/2021-Technically difficult study, but probably normal without evidence of significant ischemia or prior infarction. No gating due to atrial fibrillation. Plan is for left heart cath. Fever. Possible UTI with mild pyuria though sample was definitely contaminated with epithelial cells cells. ID recommended 5 days of antibiotic. 07/20/2021. BNP elevated on admission at 18,662. Troponin is also elevated 0.69 and 0.067 respectively. Chest x-ray revealed bilateral right greater than left pleural effusions with bibasilar opacities. Follow-up echocardiogram to assess systolic/diastolic function. Await cardiology recommendations. Continue diuresis per cardiology. Amiodarone discontinued. Continue diltiazem 30 mg p.o. 6 hours for rate control. Continue anticoagulation with Eliquis 2.5 mg twice daily. Follow-up urine studies and renal ultrasound per nephrology recommendations. Renal prognosis is guarded. 07/21/2021 Patient with afib with RVR, Acute on chronic systolic CHF, EF 15-20%. CXR with bilateral pleural effusions, bibasilar opacities. Will repeat in am. Also has UTI. Now has fever. Start Ceftriaxone. Obtain blood cultures. 07/22/2021 Patient with afib with RVR, Acute on chronic systolic CHF, EF 15-20%. CXR with bilateral pleural effusions, bibasilar opacities. Yesterday had fever of 101.7 . Also has UTI. Started Ceftriaxone for UTI. Obtained blood cultures. Consulted ID to see. Cardiology planning on cardiac cath when Creatinine normalizes. 07/23/2021. Cardiology still has plan for cardiac cath based on renal function. ID recommended 5 days of ceftriaxone on if discharging will go with omnicef 300mg q12h A/P: 71-year-old male past medical history CHF, CAD presented to hospital with palpitations, had 1 time fever. #Fevers: Unclear source, possible urinary tract infection with mild pyuria though sample was definitely contaminated with epithelial cells cells #CHF Recs: - History Interval history: Noted bilateral lower extremity edema has improved. No chest pain or shortness of breath. No fever or chills. Wants to go home and stated that he will definitely go home tomorrow even if he is not discharged. Hospitalist Physical - Constitutional Vitals: Temp Pulse Resp BP Pulse Ox 97.7 F 71 18 99/65 97 07/23/21 12:33 07/23/21 12:33 07/23/21 12:33 07/23/21 12:33 07/23/21 12:33 General appearance: Present: no acute distress - EENT Eyes: Present: PERRL, EOM intact ENT: hearing intact - Neck Neck: Present: supple, normal ROM - Respiratory Respiratory effort: normal Respiratory: bilateral: CTA - Cardiovascular Rhythm: irregularly irregular Heart Sounds: Present: S1 & S2 - Extremities Extremity abnormal: edema (Bilateral lower extremity with hyperpigmentation.) - Abdominal General gastrointestinal: soft, non-tender, non-distended, normal bowel sounds - Integumentary Integumentary: Present: warm, dry - Psychiatric Psychiatric: appropriate mood/affect HEART Score - HEART Score EKG: Non-specific Age: > 65 Risk factors: 1-2 risk factors Troponin: Troponin T 0.067 ng/mL (0.00-0.029) H 07/19/21 14:13 Troponin: 1-3x normal limit Results - Labs CBC & Chem 7: 07/23/21 05:19 07/23/21 05:19 Labs: Laboratory Last Values WBC 5.1 K/mm3 (4.5-11.0) 07/23/21 05:19 RBC 2.99 M/mm3 (3.65-5.03) L 07/23/21 05:19 Hgb 11.3 gm/dl (11.8-15.2) L 07/23/21 05:19 Hct 33.1 % (35.5-45.6) L 07/23/21 05:19 MCV 111 fl (84-94) H 07/23/21 05:19 MCH 38 pg (28-32) H 07/23/21 05:19 MCHC 34 % (32-34) 07/23/21 05:19 RDW 18.3 % (13.2-15.2) H 07/23/21 05:19 Plt Count 86 K/mm3 (140-440) L 07/23/21 05:19 Lymph % (Auto) 20.7 % (13.4-35.0) 07/19/21 11:27 [place] % (Auto) 9.7 % (0.0-7.3) H 07/19/21 11:27 Eos % (Auto) 1.4 % (0.0-4.3) 07/19/21 11:27 Baso % (Auto) 1.8 % (0.0-1.8) 07/19/21 11:27 Lymph # (Auto) 1.1 K/mm3 (1.2-5.4) L 07/19/21 11:27 [place] # (Auto) 0.5 K/mm3 (0.0-0.8) 07/19/21 11:27 Eos # (Auto) 0.1 K/mm3 (0.0-0.4) 07/19/21 11:27 Baso # (Auto) 0.1 K/mm3 (0.0-0.1) 07/19/21 11:27 Seg Neutrophils % 66.4 % (40.0-70.0) 07/19/21 11:27 Seg Neutrophils # 3.6 K/mm3 (1.8-7.7) 07/19/21 11:27 PT 14.9 Sec. (12.2-14.9) 07/19/21 15:15 INR 1.12 (0.87-1.13) 07/19/21 15:15 APTT 28.6 Sec. (24.2-36.6) 07/19/21 15:15 Sodium 137 mmol/L (137-145) 07/23/21 05:19 Potassium 4.3 mmol/L (3.6-5.0) 07/23/21 05:19 Chloride 102.1 mmol/L (98-107) 07/23/21 05:19 Carbon Dioxide 18 mmol/L (22-30) L 07/23/21 05:19 Anion Gap 21 mmol/L 07/23/21 05:19 BUN 57 mg/dL (9-20) H 07/23/21 05:19 Creatinine 3.3 mg/dL (0.8-1.3) H 07/23/21 05:19 Estimated GFR 19 ml/min 07/23/21 05:19 BUN/Creatinine Ratio 17 % 07/23/21 05:19 Glucose 153 mg/dL (75-100) H 07/23/21 05:19 POC Glucose 159 mg/dL (70-105) H 07/22/21 11:11 Calcium 9.3 mg/dL (8.4-10.2) 07/23/21 05:19 Magnesium 2.40 mg/dL (1.7-2.3) H 07/19/21 16:41 Total Bilirubin 0.60 mg/dL (0.1-1.2) 07/19/21 11:27 AST 23 units/L (5-40) 07/19/21 11:27 ALT 18 units/L (7-56) 07/19/21 11:27 Alkaline Phosphatase 135 units/L (35-129) H 07/19/21 11:27 Total Creatine Kinase 85 units/L (55-170) 07/19/21 11:27 Troponin T 0.067 ng/mL (0.00-0.029) H 07/19/21 14:13 NT-Pro-B Natriuret Pep 52689 pg/mL (0-900) H 07/19/21 11:27 Total Protein 7.2 g/dL (6.3-8.2) 07/19/21 11:27 Albumin 3.7 g/dL (3.9-5) L 07/19/21 11:27 Albumin/Globulin Ratio 1.1 % 07/19/21 11:27 Triglycerides 127 mg/dL (2-149) 07/19/21 11:27 Cholesterol 138 mg/dL (50-199) 07/19/21 11:27 LDL Cholesterol Direct 80 mg/dL (50-130) 07/19/21 11:27 HDL Cholesterol 33 mg/dL (40-59) L 07/19/21 11:27 Cholesterol/HDL Ratio 4.18 % 07/19/21 11:27 TSH 2.410 mlU/mL (0.270-4.200) 07/19/21 16:41 Free T4 1.22 ng/dL (0.76-1.46) 07/19/21 16:41 Urine Color Yellow (Yellow) 07/20/21 Unknown Urine Turbidity Slightly-cloudy (Clear) 07/20/21 Unknown Urine pH 5.0 (5.0-7.0) 07/20/21 Unknown Ur Specific [place] 1.016 (1.003-1.030) 07/20/21 Unknown Urine Protein 100 mg/dl mg/dL (Negative) 07/20/21 Unknown Urine Glucose (UA) 50 mg/dL (Negative) 07/20/21 Unknown Urine Ketones Neg mg/dL (Negative) 07/20/21 Unknown Urine Blood Neg (Negative) 07/20/21 Unknown Urine Nitrite Neg (Negative) 07/20/21 Unknown Urine Bilirubin Neg (Negative) 07/20/21 Unknown Urine Urobilinogen < 2.0 mg/dL (<2.0) 07/20/21 Unknown Ur Leukocyte Esterase Mod (Negative) 07/20/21 Unknown Urine WBC (Auto) 43.0 /HPF (0.0-6.0) H 07/20/21 Unknown Urine RBC (Auto) 30.0 /HPF (0.0-6.0) 07/20/21 Unknown U Epithel Cells (Auto) 21.0 /HPF (0-13.0) H 07/20/21 Unknown Urine Bacteria (Auto) 1+ /HPF (Negative) 07/20/21 Unknown Hyaline Casts 15 /LPF 07/20/21 Unknown WBC Casts 8 /LPF 07/20/21 Unknown Urine Mucus Few /HPF 07/20/21 Unknown Urine Creatinine 136.0 mg/dL (0.1-20.0) H 07/20/21 Unknown Protein/Creatinin Ratio 0.68 07/20/21 Unknown Urine Sodium 42 mmol/L 07/20/21 Unknown Urine Total Protein 92 mg/dL (5-11.8) H 07/20/21 Unknown Microbiology: Microbiology 07/21/21 18:17 Peripheral/Venous Blood Culture - Preliminary NO GROWTH AFTER 24 HOURS 07/21/21 18:11 Peripheral/Venous Blood Culture - Preliminary NO GROWTH AFTER 24 HOURS Bain/IV: Voiding Method Urinal Active Medications - Current Medications Current Medications: Generic Name Dose Route Start Last Admin Trade Name Freq PRN Reason Stop Dose Admin Acetaminophen 650 mg 07/19/21 15:03 07/23/21 00:34 Acetaminophen 325 Mg Tab PO 650 mg Q4H PRN Administration Pain MILD(1-3)/Fever >100.5/AVILA Albuterol 2.5 mg 07/19/21 15:03 Albuterol 2.5 Mg/3 Ml Nebu IH Q4H PRN Shortness Of Breath Apixaban 2.5 mg 07/19/21 22:00 07/23/21 09:11 Apixaban 2.5 Mg Tab PO 2.5 mg Q12HR RIC Administration Protocol Famotidine 10 mg 07/20/21 22:00 07/23/21 09:11 Famotidine 20 Mg Tab PO 10 mg BID RIC Administration Hydromorphone HCl 0.5 mg 07/19/21 15:03 07/23/21 04:25 Hydromorphone 1 Mg/1 Ml Inj IV 0.5 mg Q23H PRN Administration Pain , Severe (7-10) Ceftriaxone Sodium 1 gm in 50 mls @ 100 mls/hr 07/21/21 18:00 07/22/21 17:53 Rocephin/Ns 1 Gm/50 Ml IV 07/25/21 18:29 100 mls/hr Q24H RIC Administration Protocol Metoprolol Tartrate 25 mg 07/21/21 20:00 07/23/21 09:11 Metoprolol Tartrate 25 Mg Tab PO 25 mg TID RIC Administration Ondansetron HCl 4 mg 07/19/21 15:03 07/23/21 04:26 Ondansetron 4 Mg/2 Ml Inj IV 4 mg Q8H PRN Administration Nausea And Vomiting Oxycodone/Acetaminophen 1 tab 07/19/21 15:03 07/23/21 03:19 Oxycodone /Acetaminophen 5-325mg Tab PO 1 tab Q16H PRN Administration Pain, Moderate (4-6) Sodium Chloride 10 ml 07/19/21 22:00 07/23/21 09:12 Sodium Chloride 0.9% 10 Ml Flush Syringe IV 10 ml BID RIC Administration Sodium Chloride 10 ml 07/19/21 15:03 Sodium Chloride 0.9% 10 Ml Flush Syringe IV PRN PRN LINE FLUSH
--- NOTE | 2021-07-23 16:20 | Progress Note ---
Assessment and Plan Diuretics and ACEI/ARB previously on hold due to renal fxn. Closely monitor renal indices (baseline Cr ~ 1.4). Recommend resumption of gentle IV diuresis. Will trial IV dobutamine gtt @ 2.5mcg/kg/min. Hold BB for now. Plan also for repeat limited echo on dobutamine in AM to re-assess AV. Plan for LHC when renal fxn has stabilized and pt's volume status is adequately optimized. Pt seen in conjunction with Dr. Saloni Munoz, who agrees with the assessment and plan of care. - Patient Problems (1) Acute kidney injury superimposed on CKD Current Visit: Yes Status: Acute (2) Acute HFrEF (heart failure with reduced ejection fraction) Current Visit: Yes Status: Acute (3) Cardiomyopathy Current Visit: Yes Status: Acute (4) Atrial fibrillation Current Visit: Yes Status: Chronic (5) HTN (hypertension) Current Visit: Yes Status: Chronic Qualifiers: Hypertension type: primary hypertension Qualified Code(s): I10 - Essential (primary) hypertension (6) DM2 (diabetes mellitus, type 2) Current Visit: Yes Status: Chronic (7) Nicotine dependence Current Visit: Yes Status: Chronic Qualifiers: Nicotine product type: cigarettes Substance use status: in withdrawal Qualified Code(s): F17.213 - Nicotine dependence, cigarettes, with withdrawal (8) Medical non-compliance Current Visit: Yes Status: Chronic Subjective Date of service: 07/23/21 Principal diagnosis: EF 15-20% Interval history: Voices multiple complaints, including tobacco withdrawal and desire for more frequent narcotics d/t pain in his legs. Actively nauseous upon assessment. R eports his breathing is "the same." Tele reviewed - AF 80s, no events overnight. Objective Last Vital Signs Temp 97.7 F 07/23/21 12:33 Pulse 71 07/23/21 12:33 Resp 18 07/23/21 12:33 BP 99/65 07/23/21 12:33 Pulse Ox 97 07/23/21 12:33 - Physical Examination General: No Apparent Distress HEENT: Positive: EOMI, Normocephaly Neck: Positive: neck supple, trachea midline Cardiac: Positive: irregularly irregular, S1/S2 Lungs: Positive: Rales (bibasilar) Neuro: Positive: Grossly Intact Abdomen: Positive: Soft. Negative: Tender Skin: Negative: Rash Musculoskeletal: No Fluid Collection Extremities: Present: lower extr. pulses, +2 Edema, Cool, Other (BLE blistering, RLE erythema) - Labs and Meds CBC 07/23/21 Range/Units 05:19 WBC 5.1 (4.5-11.0) K/mm3 RBC 2.99 L (3.65-5.03) M/mm3 Hgb 11.3 L (11.8-15.2) gm/dl Hct 33.1 L (35.5-45.6) % Plt Count 86 L (140-440) K/mm3 Comprehensive Metabolic Panel 07/23/21 Range/Units 05:19 Sodium 137 (137-145) mmol/L Potassium 4.3 (3.6-5.0) mmol/L Chloride 102.1 (98-107) mmol/L Carbon Dioxide 18 L (22-30) mmol/L BUN 57 H (9-20) mg/dL Creatinine 3.3 H (0.8-1.3) mg/dL Glucose 153 H (75-100) mg/dL Calcium 9.3 (8.4-10.2) mg/dL - Imaging and Cardiology EKG: report reviewed, image reviewed Pharmacologic stress test: report reviewed (07/21/2021 - technically difficult study but probably normal) Echo: report reviewed (07/19/2021 EF 15-20%, mild LVH, mild AR, (unable to determine peak velocity d/t AF), mod TR, mod pulm HTN w/RVSP of 45mmHg) - Telemetry EKG Rhythm: Atrial Fibrillation - EKG Supraventricular dysrhythmia: atrial fibrillation Repolarization changes or abnormalities: nonspecific abnormality, ST segment, and/or T wave
[2021-07-23] MEDS ORDERED: DOBUTamine/D5W 500 MG/250 ML 500 MG/250 ML BAG IV SCH (17:00)
[2021-07-23] MEDS: FUROSEMIDE 20 MG/2 ML INJ IV SCH (18:45)
[2021-07-23] MEDS: cefTRIAXone/NS 1 GM/50 ML 1 GM/50 ML BAG IV SCH (21:42)
[2021-07-24] MEDS: ONDANSETRON 4 MG/2 ML INJ IV PRN (03:01)
[2021-07-24] MEDS: oxyCODONE /ACETAMINOPHEN 5-325MG TAB PO PRN ×2 (03:06→21:55)
[2021-07-24] MEDS: ACETAMINOPHEN 325 MG TAB PO PRN ×2 (05:36→10:01)
[2021-07-24] MEDS: FUROSEMIDE 20 MG/2 ML INJ IV SCH ×2 (05:38→19:00)
[2021-07-24 06:03] LABS: Calcium 9.1 mg/dL (8.4-10.2)
--- NOTE | 2021-07-24 08:55 | Progress Note ---
Assessment and Plan Assessment and plan: Acute on chronic systolic CHF exacerbation. Echo 07/19/2021-EF 15 to 20%, severe global hypokinesis of left ventricle, mild concentric left ventricular hypertrophy, mild aortic regurgitation, there is aortic stenosis unable to determine peak velocity due to A. fib, moderate tricuspid regurgitation, moder ate pulmonary hypertension. Cannot be started on MILAGRO or ARB at this time due to acute kidney injury. Started on dobutamine on 07/23/2021 and beta-abilio held. Plan is to repeat limited echocardiogram left heart cath. Cardiology is managing. Atrial fibrillation was in RVR. Rate is currently controlled. Also on Eliquis. Acute kidney injury on CKD 3. No significant change in creatinine since adm ission. Nephrology is on board. Nicotine dependence. Obesity hypoventilation syndrome. Hypertension. Diabetes mellitus type 2. Elevated troponin. Lexiscan MPI stress test 07/21/2021-Technically difficult study, but probably normal without evidence of significant ischemia or prior infarction. No gating due to atrial fibrillation. Plan is for left heart cath. Fever. Possible UTI with mild pyuria though sample was definitely contaminated with epithelial cells cells. ID recommended 5 days of antibiotic. 07/20/2021. BNP elevated on admission at 18,662. Troponin is also elevated 0.69 and 0.067 respectively. Chest x-ray revealed bilateral right greater than left pleural effusions with bibasilar opacities. Follow-up echocardiogram to assess systolic/diastolic function. Await cardiology recommendations. Continue diuresis per cardiology. Amiodarone discontinued. Continue diltiazem 30 mg p.o. 6 hours for rate control. Continue anticoagulation with Eliquis 2.5 mg twice daily. Follow-up urine studies and renal ultrasound per nephrology recommendations. Renal prognosis is guarded. 07/21/2021 Patient with afib with RVR, Acute on chronic systolic CHF, EF 15-20%. CXR with bilateral pleural effusions, bibasilar opacities. Will repeat in am. Also has UTI. Now has fever. Start Ceftriaxone. Obtain blood cultures. 07/22/2021 Patient with afib with RVR, Acute on chronic systolic CHF, EF 15-20%. CXR with bilateral pleural effusions, bibasilar opacities. Yesterday had fever of 101.7 . Also has UTI. Started Ceftriaxone for UTI. Obtained blood cultures. Consulted ID to see. Cardiology planning on cardiac cath when Creatinine normalizes. 07/23/2021. Cardiology still has plan for cardiac cath based on renal function. ID recommended 5 days of ceftriaxone on if discharging will go with omnicef 300mg q12h 07/24/2021. Patient was started on dobutamine drip yesterday, Lasix 20 mg IV twice daily and beta-abilio discontinued. Recommend resumption of gentle IV diuresis. Plan by cardiology is also to repeat limited echo on dobutamine today to re-assess AV and LHC when renal fxn has stabilized and pt's volume status is adequately optimized. History Interval history: Bilateral lower extremity edema. No chest pain or shortness of breath. No fever or chills. Hospitalist Physical - Constitutional Vitals: Temp Pulse Resp BP Pulse Ox 98.4 F 78 18 110/69 96 07/24/21 05:04 07/24/21 05:04 07/24/21 05:04 07/24/21 05:04 07/24/21 05:04 General appearance: Present: no acute distress - EENT Eyes: Present: PERRL, EOM intact ENT: hearing intact - Neck Neck: Present: supple, normal ROM - Respiratory Respiratory effort: normal - Cardiovascular Rhythm: irregularly irregular Heart Sounds: Present: S1 & S2 - Extremities Extremities: abnormal (Bilateral lower extremity edema with hyperpigmentation.) Extremity abnormal: edema (3+ bilateral lower extremity) - Abdominal General gastrointestinal: soft, non-tender, non-distended, normal bowel sounds - Integumentary Integumentary: Present: warm, dry - Psychiatric Psychiatric: appropriate mood/affect HEART Score - HEART Score EKG: Non-specific Age: > 65 Risk factors: 1-2 risk factors Troponin: Troponin T 0.067 ng/mL (0.00-0.029) H 07/19/21 14:13 Troponin: 1-3x normal limit Results - Labs CBC & Chem 7: 07/23/21 05:19 07/24/21 05:14 Labs: Laboratory Last Values WBC 5.1 K/mm3 (4.5-11.0) 07/23/21 05:19 RBC 2.99 M/mm3 (3.65-5.03) L 07/23/21 05:19 Hgb 11.3 gm/dl (11.8-15.2) L 07/23/21 05:19 Hct 33.1 % (35.5-45.6) L 07/23/21 05:19 MCV 111 fl (84-94) H 07/23/21 05:19 MCH 38 pg (28-32) H 07/23/21 05:19 MCHC 34 % (32-34) 07/23/21 05:19 RDW 18.3 % (13.2-15.2) H 07/23/21 05:19 Plt Count 86 K/mm3 (140-440) L 07/23/21 05:19 Lymph % (Auto) 20.7 % (13.4-35.0) 07/19/21 11:27 [place] % (Auto) 9.7 % (0.0-7.3) H 07/19/21 11:27 Eos % (Auto) 1.4 % (0.0-4.3) 07/19/21 11:27 Baso % (Auto) 1.8 % (0.0-1.8) 07/19/21 11:27 Lymph # (Auto) 1.1 K/mm3 (1.2-5.4) L 07/19/21 11:27 [place] # (Auto) 0.5 K/mm3 (0.0-0.8) 07/19/21 11:27 Eos # (Auto) 0.1 K/mm3 (0.0-0.4) 07/19/21 11:27 Baso # (Auto) 0.1 K/mm3 (0.0-0.1) 07/19/21 11:27 Seg Neutrophils % 66.4 % (40.0-70.0) 07/19/21 11:27 Seg Neutrophils # 3.6 K/mm3 (1.8-7.7) 07/19/21 11:27 PT 14.9 Sec. (12.2-14.9) 07/19/21 15:15 INR 1.12 (0.87-1.13) 07/19/21 15:15 APTT 28.6 Sec. (24.2-36.6) 07/19/21 15:15 Sodium 137 mmol/L (137-145) 07/24/21 05:14 Potassium 5.0 mmol/L (3.6-5.0) 07/24/21 05:14 Chloride 100.7 mmol/L (98-107) 07/24/21 05:14 Carbon Dioxide 19 mmol/L (22-30) L 07/24/21 05:14 Anion Gap 22 mmol/L 07/24/21 05:14 BUN 63 mg/dL (9-20) H 07/24/21 05:14 Creatinine 3.1 mg/dL (0.8-1.3) H 07/24/21 05:14 Estimated GFR 20 ml/min 07/24/21 05:14 BUN/Creatinine Ratio 20 % 07/24/21 05:14 Glucose 177 mg/dL (75-100) H 07/24/21 05:14 POC Glucose 159 mg/dL (70-105) H 07/22/21 11:11 Calcium 9.1 mg/dL (8.4-10.2) 07/24/21 05:14 Magnesium 2.40 mg/dL (1.7-2.3) H 07/19/21 16:41 Total Bilirubin 0.60 mg/dL (0.1-1.2) 07/19/21 11:27 AST 23 units/L (5-40) 07/19/21 11:27 ALT 18 units/L (7-56) 07/19/21 11:27 Alkaline Phosphatase 135 units/L (35-129) H 07/19/21 11:27 Total Creatine Kinase 85 units/L (55-170) 07/19/21 11:27 Troponin T 0.067 ng/mL (0.00-0.029) H 07/19/21 14:13 NT-Pro-B Natriuret Pep 91148 pg/mL (0-900) H 07/19/21 11:27 Total Protein 7.2 g/dL (6.3-8.2) 07/19/21 11:27 Albumin 3.7 g/dL (3.9-5) L 07/19/21 11:27 Albumin/Globulin Ratio 1.1 % 07/19/21 11:27 Triglycerides 127 mg/dL (2-149) 07/19/21 11:27 Cholesterol 138 mg/dL (50-199) 07/19/21 11:27 LDL Cholesterol Direct 80 mg/dL (50-130) 07/19/21 11:27 HDL Cholesterol 33 mg/dL (40-59) L 07/19/21 11:27 Cholesterol/HDL Ratio 4.18 % 07/19/21 11:27 TSH 2.410 mlU/mL (0.270-4.200) 07/19/21 16:41 Free T4 1.22 ng/dL (0.76-1.46) 07/19/21 16:41 Urine Color Yellow (Yellow) 07/20/21 Unknown Urine Turbidity Slightly-cloudy (Clear) 07/20/21 Unknown Urine pH 5.0 (5.0-7.0) 07/20/21 Unknown Ur Specific [place] 1.016 (1.003-1.030) 07/20/21 Unknown Urine Protein 100 mg/dl mg/dL (Negative) 07/20/21 Unknown Urine Glucose (UA) 50 mg/dL (Negative) 07/20/21 Unknown Urine Ketones Neg mg/dL (Negative) 07/20/21 Unknown Urine Blood Neg (Negative) 07/20/21 Unknown Urine Nitrite Neg (Negative) 07/20/21 Unknown Urine Bilirubin Neg (Negative) 07/20/21 Unknown Urine Urobilinogen < 2.0 mg/dL (<2.0) 07/20/21 Unknown Ur Leukocyte Esterase Mod (Negative) 07/20/21 Unknown Urine WBC (Auto) 43.0 /HPF (0.0-6.0) H 07/20/21 Unknown Urine RBC (Auto) 30.0 /HPF (0.0-6.0) 07/20/21 Unknown U Epithel Cells (Auto) 21.0 /HPF (0-13.0) H 07/20/21 Unknown Urine Bacteria (Auto) 1+ /HPF (Negative) 07/20/21 Unknown Hyaline Casts 15 /LPF 07/20/21 Unknown WBC Casts 8 /LPF 07/20/21 Unknown Urine Mucus Few /HPF 07/20/21 Unknown Urine Creatinine 136.0 mg/dL (0.1-20.0) H 07/20/21 Unknown Protein/Creatinin Ratio 0.68 07/20/21 Unknown Urine Sodium 42 mmol/L 07/20/21 Unknown Urine Total Protein 92 mg/dL (5-11.8) H 07/20/21 Unknown Microbiology: Microbiology 07/21/21 18:17 Peripheral/Venous Blood Culture - Preliminary NO GROWTH AFTER 48 HOURS 07/21/21 18:11 Peripheral/Venous Blood Culture - Preliminary NO GROWTH AFTER 48 HOURS Bain/IV: Voiding Method Toilet Active Medications - Current Medications Current Medications: Generic Name Dose Route Start Last Admin Trade Name Freq PRN Reason Stop Dose Admin Acetaminophen 650 mg 07/19/21 15:03 07/24/21 05:36 Acetaminophen 325 Mg Tab PO 650 mg Q4H PRN Administration Pain MILD(1-3)/Fever >100.5/AVILA Albuterol 2.5 mg 07/19/21 15:03 Albuterol 2.5 Mg/3 Ml Nebu IH Q4H PRN Shortness Of Breath Apixaban 2.5 mg 07/19/21 22:00 07/23/21 21:43 Apixaban 2.5 Mg Tab PO 2.5 mg Q12HR RIC Administration Protocol Famotidine 10 mg 07/20/21 22:00 07/23/21 21:42 Famotidine 20 Mg Tab PO 10 mg BID RIC Administration Furosemide 20 mg 07/23/21 18:00 07/24/21 05:38 Furosemide 20 Mg/2 Ml Inj IV 20 mg 0600,1800 RIC Administration Hydromorphone HCl 0.5 mg 07/19/21 15:03 07/23/21 18:35 Hydromorphone 1 Mg/1 Ml Inj IV 0.5 mg Q23H PRN Administration Pain , Severe (7-10) Ceftriaxone Sodium 1 gm in 50 mls @ 100 mls/hr 07/21/21 18:00 07/23/21 21:42 Rocephin/Ns 1 Gm/50 Ml IV 07/25/21 18:29 100 mls/hr Q24H RIC Administration Protocol Dobutamine HCl/Dextrose 500 mg in 250 mls @ 9.053 mls/hr 07/23/21 17:00 07/23/21 19:23 Dobutrex Drip 500mg/D5w 250ml IV 2.5 mcg/kg/min DIRECT RIC 9.053 mls/hr Administration Protocol 2.5 MCG/KG/MIN Ondansetron HCl 4 mg 07/19/21 15:03 07/24/21 03:01 Ondansetron 4 Mg/2 Ml Inj IV 4 mg Q8H PRN Administration Nausea And Vomiting Oxycodone/Acetaminophen 1 tab 07/19/21 15:03 07/24/21 03:06 Oxycodone /Acetaminophen 5-325mg Tab PO 1 tab Q16H PRN Administration Pain, Moderate (4-6) Sodium Chloride 10 ml 07/19/21 22:00 07/23/21 21:43 Sodium Chloride 0.9% 10 Ml Flush Syringe IV 10 ml BID RIC Administration Sodium Chloride 10 ml 07/19/21 15:03 Sodium Chloride 0.9% 10 Ml Flush Syringe IV PRN PRN LINE FLUSH
--- NOTE | 2021-07-24 09:34 | Progress Note ---
Assessment and Plan 1. Acute kidney injury: CONCETTA superimposed on CKD-3 in the setting of decompensated CHF. Renal US negative. Monitor renal function. Creatinine level remains high. Renal prognosis is guarded. Avoid nephrotoxic agents. Meds dosage based on GFR. 2. FEN: Mild metabolic acidosis, monitor. Volume overload, diuretics as BP allows. Monitor lytes and volume status. 3. A.fib with RVR: On Eliquis. Monitor. 4. Decompensated CHF / Elevated troponin, POA: Dobutamine drip. Followed by Cards. Monitor. 5. DM-2. 6. HTN. 7. Tobacco use: Counseled. Subjective: Patient was seen and examined at the bedside. Examination: General appearance: obese, well-developed, appears stated age, not in distress HEENT: atraumatic Neck: trachea midline Respiratory: diminished breath sounds Heart: S1S2, irregular, no murmur Abdomen: soft, obese, bowel sounds heard, Integumentary: LE discoloration, extensive erythema noted Neurologic: AO, able to move extremities Ext: 1+ LE edema Subjective Date of service: 07/24/21 Principal diagnosis: EF 15-20% Objective - Vital Signs Vital signs: Vital Signs - 12hr 07/23/21 07/24/21 07/24/21 22:00 00:14 05:04 Temperature 98.6 F 98.4 F Pulse Rate 68 78 Respiratory 20 18 Rate Blood Pressure 110/69 Blood Pressure 131/68 [Left] O2 Sat by Pulse 99 96 Oximetry - Lab 07/23/21 05:19 07/24/21 05:14 Most recent lab results Calcium 9.1 mg/dL (8.4-10.2) 07/24/21 05:14 Magnesium 2.40 mg/dL (1.7-2.3) H 07/19/21 16:41 Urine Creatinine 136.0 mg/dL (0.1-20.0) H 07/20/21 Unknown Urine Sodium 42 mmol/L 07/20/21 Unknown Urine Total Protein 92 mg/dL (5-11.8) H 07/20/21 Unknown Medications & Allergies - Medications Allergies/Adverse Reactions: Allergies No Known Allergies Allergy (Verified 07/19/21 10:06) Home Medications: Home Medications Medication Instructions Recorded Confirmed Last Taken Type No Known Home Medications [No 07/19/21 07/19/21 Unknown History Reported Home Medications] Active Medications: Generic Name Dose Route Start Last Admin Trade Name Freq PRN Reason Stop Dose Admin Acetaminophen 650 mg 07/19/21 15:03 07/24/21 05:36 Acetaminophen 325 Mg Tab PO 650 mg Q4H PRN Administration Pain MILD(1-3)/Fever >100.5/AVILA Albuterol 2.5 mg 07/19/21 15:03 Albuterol 2.5 Mg/3 Ml Nebu IH Q4H PRN Shortness Of Breath Apixaban 2.5 mg 07/19/21 22:00 07/23/21 21:43 Apixaban 2.5 Mg Tab PO 2.5 mg Q12HR RIC Administration Protocol Famotidine 10 mg 07/20/21 22:00 07/23/21 21:42 Famotidine 20 Mg Tab PO 10 mg BID RIC Administration Furosemide 20 mg 07/23/21 18:00 07/24/21 05:38 Furosemide 20 Mg/2 Ml Inj IV 20 mg 0600,1800 RIC Administration Hydromorphone HCl 0.5 mg 07/19/21 15:03 07/23/21 18:35 Hydromorphone 1 Mg/1 Ml Inj IV 0.5 mg Q23H PRN Administration Pain , Severe (7-10) Ceftriaxone Sodium 1 gm in 50 mls @ 100 mls/hr 07/21/21 18:00 07/23/21 21:42 Rocephin/Ns 1 Gm/50 Ml IV 07/25/21 18:29 100 mls/hr Q24H RIC Administration Protocol Dobutamine HCl/Dextrose 500 mg in 250 mls @ 9.053 mls/hr 07/23/21 17:00 07/23/21 19:23 Dobutrex Drip 500mg/D5w 250ml IV 2.5 mcg/kg/min DIRECT RIC 9.053 mls/hr Administration Protocol 2.5 MCG/KG/MIN Ondansetron HCl 4 mg 07/19/21 15:03 07/24/21 03:01 Ondansetron 4 Mg/2 Ml Inj IV 4 mg Q8H PRN Administration Nausea And Vomiting Oxycodone/Acetaminophen 1 tab 07/19/21 15:03 07/24/21 03:06 Oxycodone /Acetaminophen 5-325mg Tab PO 1 tab Q16H PRN Administration Pain, Moderate (4-6) Sodium Chloride 10 ml 07/19/21 22:00 07/23/21 21:43 Sodium Chloride 0.9% 10 Ml Flush Syringe IV 10 ml BID RIC Administration Sodium Chloride 10 ml 07/19/21 15:03 Sodium Chloride 0.9% 10 Ml Flush Syringe IV PRN PRN LINE FLUSH
[2021-07-24] MEDS: APIXABAN 2.5 MG TAB PO SCH ×2 (10:02→21:55)
--- NOTE | 2021-07-24 11:20 | Progress Note ---
Assessment and Plan Cultures: Blood culture no growth so far Urine culture negative A/P: 71-year-old male past medical history CHF, CAD presented to hospital with palpitations, had 1 time fever. #Fevers: Unclear source, possible urinary tract infection with mild pyuria though sample was definitely contaminated with epithelial cells cells #CHF Recs: -Complete 5 days ceftriaxone. If discharging would send with omnicef 300mg q12h Thank you for the consult, we will sign off. Please call with qusetions. Ken Lugo MD [facility] O: [phone] F: [phone] Subjective Date of service: 07/24/21 Principal diagnosis: EF 15-20% Interval history: Afebrile, normal white count. No acute change. Objective - Exam Narrative Exam: Physical Exam: Constitutional: Alert, cooperative. No acute distress Head, Ears, Nose: Normocephalic, atraumatic. External ears, nose normal Eyes: Conjunctivae/corneas clear. No icterus. No ptosis. Neck: Supple, no meningeal signs Oral: dentition fair, no thrush Cardiovascular: S1, S2 normal. Respiratory: Good air entry, clear to auscultation bilaterally GI: Soft, non-tender; bowel sounds normal. No peritoneal signs. Musculoskeletal: No pedal edema, no cyanosis. Skin: No rash or abscess Hem/Lymphatic: No palpable cervical or supraclavicular nodes. No lymphangitis Psych: Mood ok. Affect normal Neurological: Awake, alert, oriented. No gross abnormality - Constitutional Vitals: Vital Signs Temp Pulse Resp BP Pulse Ox 98.4 F 78 18 110/69 96 07/24/21 05:04 07/24/21 05:04 07/24/21 05:04 07/24/21 05:04 07/24/21 05:04 Temperature -Last 24 Hours Temperature 98.4 F Temperature 98.6 F Temperature 97.3 F Temperature 98.6 F Temperature 97.7 F - Labs CBC & Chem 7: 07/23/21 05:19 07/24/21 05:14 Labs: Abnormal lab results 07/24/21 Range/Units 05:14 Carbon Dioxide 19 L (22-30) mmol/L BUN 63 H (9-20) mg/dL Creatinine 3.1 H (0.8-1.3) mg/dL Glucose 177 H (75-100) mg/dL
--- NOTE | 2021-07-24 13:23 | Progress Note ---
Assessment and Plan Patient is a 71 y/o male with a pmhx of CHF, HTN, COVID-19, and CKD who presented with a complaint of worsening SOB and palpitations x2 days Afib w/RVR HFrEF HTN * EKG shows afib w/rvr 138. No acute ischemic changes. * Telemetry reviewed: Afib 80s * BNP noted to be elevated and patient has BLE edema Chest x-ray revealed bilate ral right greater than left pleural effusions with bibasilar opacities * Troponins noted to be minimally elevated in setting of CHF and CONCETTA * Patient currently on Dobutamine gtt, Eliquis 2.5mg PO BID * Echo 07/19/2021-EF 15 to 20%, severe global hypokinesis of left ventricle, mild concentric left ventricular hypertrophy, mild aortic regurgitation, there is aortic stenosis unable to determine peak velocity due to A. fib, moderate tricuspid regurgitation, moderate pulmonary hypertension * Lexiscan MPI stress test 07/21/2021-Technically difficult study, but probably normal without evidence of significant ischemia or prior infarction. No gating due to atrial fibrillation CONCETTA on CKD * Patient creatinine 3.5 this admission. Upon review of outside records this is noted to be higher than his baseline of 1.4 * Nephrology following Plan: Echo pending. Continue Eliquis. Stop dobutamine. Continue to hold MILAGRO/ARB in setting of CONCETTA. When renal function returns to baseline and pending ok form nephrology will plan for [facility] Patient seen in conjunction with Dr. Munoz who agrees with this plan of care. Will continue to follow. - Patient Problems (1) Acute kidney injury (CONCETTA) with acute tubular necrosis (ATN) Current Visit: Yes Status: Acute (2) Atrial fibrillation with RVR Current Visit: Yes Status: Acute (3) CHF exacerbation Current Visit: Yes Status: Acute Qualifiers: Heart failure type: systolic Qualified Code(s): I50.23 - Acute on chronic systolic (congestive) heart failure (4) Chest pain Current Visit: Yes Status: Acute (5) Nicotine dependence Current Visit: Yes Status: Chronic Qualifiers: Nicotine product type: cigarettes Substance use status: in withdrawal Qualified Code(s): F17.213 - Nicotine dependence, cigarettes, with withdrawal (6) Obesity hypoventilation syndrome Current Visit: Yes Status: Acute Subjective Date of service: 07/24/21 Principal diagnosis: EF 15-20% Interval history: Patient lying in bed. He reports feeling nauseous Afib 80s-90s. Patient had 11 beat run of NSVT this AM on monitor Objective Vital Signs Temp Pulse Resp BP BP Pulse Ox 07/24/21 11:43 97.7 F 66 21 106/71 95 07/24/21 05:04 98.4 F 78 18 110/69 96 07/24/21 00:14 98.6 F 68 20 131/68 07/23/21 22:00 99 07/23/21 19:53 97.3 F L 60 18 129/60 99 07/23/21 17:36 98.6 F 69 20 103/71 61 L 07/23/21 16:46 97 - Physical Examination General: No Apparent Distress HEENT: Positive: EOMI, Normocephaly Neck: Positive: neck supple, trachea midline Cardiac: Positive: irregularly irregular Lungs: Positive: Decreased Breath Sounds Neuro: Positive: Grossly Intact Abdomen: Positive: Soft. Negative: Tender Skin: Negative: Rash Musculoskeletal: No Fluid Collection Extremities: Present: lower extr. pulses, +2 Edema, Cool, Other (BLE blistering, RLE erythema) - Labs and Meds Comprehensive Metabolic Panel 07/24/21 Range/Units 05:14 Sodium 137 (137-145) mmol/L Potassium 5.0 (3.6-5.0) mmol/L Chloride 100.7 (98-107) mmol/L Carbon Dioxide 19 L (22-30) mmol/L BUN 63 H (9-20) mg/dL Creatinine 3.1 H (0.8-1.3) mg/dL Glucose 177 H (75-100) mg/dL Calcium 9.1 (8.4-10.2) mg/dL - Imaging and Cardiology EKG: report reviewed, image reviewed Nuclear stress test: report reviewed Echo: pending, report reviewed (07/19/2021 EF 15-20%, mild LVH, mild AR, (unable to determine peak velocity d/t AF), mod TR, mod pulm HTN w/RVSP of 45mmHg) - Telemetry EKG Rhythm: Atrial Fibrillation - EKG Supraventricular dysrhythmia: atrial fibrillation Repolarization changes or abnormalities: nonspecific abnormality, ST segment, and/or T wave
[2021-07-24] MEDS: HYDROmorphone 1 MG/1 ML INJ IV PRN (14:25)
[2021-07-24] MEDS: FAMOTIDINE 20 MG TAB PO SCH ×2 (14:44→21:55)
[2021-07-24] MEDS: cefTRIAXone/NS 1 GM/50 ML 1 GM/50 ML BAG IV SCH (21:35)
[2021-07-25] MEDS: oxyCODONE /ACETAMINOPHEN 5-325MG TAB PO PRN ×3 (03:28→23:41)
[2021-07-25 05:49] LABS: Hematocrit 33.8 % (35.5-45.6); Hemoglobin 11.4 gm/dl (11.8-15.2); Mean Corpuscular HGB Conc 34 % (32-34); Red Blood Count 3.04 M/mm3 (3.65-5.03); Red Cell Distribution Width 19.7 % (13.2-15.2)
[2021-07-25 05:50] LABS: Mean Corpuscular Volume 111 fl (84-94)
[2021-07-25 05:51] LABS: Platelet Count 75 K/mm3 (140-440)
[2021-07-25 05:56] LABS: Calcium 9.3 mg/dL (8.4-10.2)
[2021-07-25] MEDS: FUROSEMIDE 20 MG/2 ML INJ IV SCH ×2 (06:51→18:48)
[2021-07-25] MEDS: FAMOTIDINE 20 MG TAB PO SCH ×2 (09:23→23:41)
[2021-07-25] MEDS: APIXABAN 2.5 MG TAB PO SCH ×2 (09:23→23:41)
--- NOTE | 2021-07-25 10:16 | Progress Note ---
Assessment and Plan Will try low dose beta abilio if BP tolerates in order to improve rate control of AF. - Patient Problems (1) Acute on chronic HFrEF (heart failure with reduced ejection fraction) Current Visit: Yes Status: Acute (2) Cardiomyopathy Current Visit: Yes Status: Chronic (3) Atrial fibrillation with RVR Current Visit: Yes Status: Acute (4) Aortic stenosis Current Visit: Yes Status: Chronic Qualifiers: Cardiac valve disease etiology: nonrheumatic Qualified Code(s): I35.0 - Nonrheumatic aortic (valve) stenosis (5) Acute kidney injury superimposed on CKD Current Visit: Yes Status: Acute (6) Chest pain Current Visit: Yes Status: Acute (7) Thrombocytopenia Current Visit: Yes Status: Acute (8) Obesity hypoventilation syndrome Current Visit: Yes Status: Chronic Subjective Date of service: 07/25/21 Principal diagnosis: Acute on chronic HFrEF Interval history: I feel "rotten". He still has some shortness of breath. Objective Vital Signs Last Vital Signs Temp 97.2 F L 07/24/21 19:41 Pulse 78 07/24/21 19:41 Resp 20 07/25/21 09:23 BP 129/84 07/24/21 19:41 Pulse Ox 99 07/24/21 22:00 - Physical Examination General: No Apparent Distress HEENT: Positive: EOMI, Normocephaly, Mucus Membranes Moist Neck: Positive: neck supple, trachea midline Cardiac: Positive: irregularly irregular, S1/S2, Systolic Murmur Lungs: Positive: clear to auscultation Neuro: Positive: Grossly Intact Abdomen: Positive: Soft, Active Bowel Sounds. Negative: Tender Skin: Negative: Rash Musculoskeletal: Normal Range of Motion Extremities: Present: +2 Edema (both legs) - Labs and Meds CBC 07/25/21 Range/Units 05:09 WBC 4.5 (4.5-11.0) K/mm3 RBC 3.04 L (3.65-5.03) M/mm3 Hgb 11.4 L (11.8-15.2) gm/dl Hct 33.8 L (35.5-45.6) % Plt Count 75 L (140-440) K/mm3 Comprehensive Metabolic Panel 07/25/21 Range/Units 05:09 Sodium 138 (137-145) mmol/L Potassium 4.3 (3.6-5.0) mmol/L Chloride 99.7 (98-107) mmol/L Carbon Dioxide 18 L (22-30) mmol/L BUN 66 H (9-20) mg/dL Creatinine 3.2 H (0.8-1.3) mg/dL Glucose 157 H (75-100) mg/dL Calcium 9.3 (8.4-10.2) mg/dL - Imaging and Cardiology Echo: report reviewed (07/19/2021 EF 15-20%, mild LVH, mild AR, (unable to determine peak velocity d/t AF), mod TR, mod pulm HTN w/RVSP of 45mmHg) - Telemetry EKG Rhythm: Atrial Fibrillation (with RVR) Repolarization changes or abnormalities: nonspecific abnormality, ST segment, and/or T wave
--- NOTE | 2021-07-25 11:14 | Progress Note ---
Assessment and Plan Assessment and plan: Acute on chronic systolic CHF exacerbation. Echo 07/19/2021-EF 15 to 20%, severe global hypokinesis of left ventricle, mild concentric left ventricular hypertrophy, mild aortic regurgitation, there is aortic stenosis unable to determine peak velocity due to A. fib, moderate tricuspid regurgitation, moder ate pulmonary hypertension. Cannot be started on MILAGRO or ARB at this time due to acute kidney injury. Started on dobutamine on 07/23/2021 and beta-abilio held. Plan is to repeat limited echocardiogram left heart cath. Cardiology is managing. Atrial fibrillation was in RVR. Rate is currently controlled. Also on Eliquis. Acute kidney injury on CKD 3. No significant change in creatinine since adm ission. Nephrology is on board. Nicotine dependence. Obesity hypoventilation syndrome. Hypertension. Diabetes mellitus type 2. Elevated troponin. Lexiscan MPI stress test 07/21/2021-Technically difficult study, but probably normal without evidence of significant ischemia or prior infarction. No gating due to atrial fibrillation. Plan is for left heart cath. Fever. Possible UTI with mild pyuria though sample was definitely contaminated with epithelial cells cells. ID recommended 5 days of antibiotic. 07/20/2021. BNP elevated on admission at 18,662. Troponin is also elevated 0.69 and 0.067 respectively. Chest x-ray revealed bilateral right greater than left pleural effusions with bibasilar opacities. Follow-up echocardiogram to assess systolic/diastolic function. Await cardiology recommendations. Continue diuresis per cardiology. Amiodarone discontinued. Continue diltiazem 30 mg p.o. 6 hours for rate control. Continue anticoagulation with Eliquis 2.5 mg twice daily. Follow-up urine studies and renal ultrasound per nephrology recommendations. Renal prognosis is guarded. 07/21/2021 Patient with afib with RVR, Acute on chronic systolic CHF, EF 15-20%. CXR with bilateral pleural effusions, bibasilar opacities. Will repeat in am. Also has UTI. Now has fever. Start Ceftriaxone. Obtain blood cultures. 07/22/2021 Patient with afib with RVR, Acute on chronic systolic CHF, EF 15-20%. CXR with bilateral pleural effusions, bibasilar opacities. Yesterday had fever o f 101.7 . Also has UTI. Started Ceftriaxone for UTI. Obtained blood cultures. Consulted ID to see. Cardiology planning on cardiac cath when Creatinine normalizes. 07/23/2021. Cardiology still has plan for cardiac cath based on renal function. ID recommended 5 days of ceftriaxone on if discharging will go with omnicef 300mg q12h 07/24/2021. Patient was started on dobutamine drip yesterday, Lasix 20 mg IV twice daily and beta-abilio discontinued. Recommend resumption of gentle IV diuresis. Plan by cardiology is also to repeat limited echo on dobutamine today to re-assess AV and LHC when renal fxn has stabilized and pt's volume status is adequately optimized. 07/25/2021 Patient with afib with RVR, Acute on chronic systolic CHF, EF 15-20%. Treated with Dobutamine drip. Cardiology wants to do cardiac cath when renally cleared. nausea and vomiting today. Zofran iv prn. History Interval history: Initially SOB, palpitations, found to have CHF exacerbation Now c/o nausea and vomiting Hospitalist Physical - Physical exam Narrative exam: Gen: Not in acute distress, sitting up in bed HEENT: Normocephalic, atraumatic Neck: supple, Lungs: Clear to auscultation bilaterally, no wheeze Heart: S1 and S2 irreg, irreg no murmurs, rubs or gallop Abd:soft, non-tender, non distended, normal bowel sounds Ext: Bilateral gross pitting pedal edema, no clubbing or cyanosis Neuro: Awake, alert, oriented X 3, moves all extremities - Constitutional Vitals: Temp Pulse Resp BP Pulse Ox 97.2 F L 78 20 129/84 99 07/24/21 19:41 07/24/21 19:41 07/25/21 09:23 07/24/21 19:41 07/24/21 22:00 General appearance: Present: no acute distress HEART Score - HEART Score EKG: Non-specific Age: > 65 Risk factors: 1-2 risk factors Troponin: Troponin T 0.067 ng/mL (0.00-0.029) H 07/19/21 14:13 Troponin: 1-3x normal limit Results - Labs CBC & Chem 7: 07/25/21 05:09 07/25/21 05:09 Labs: Laboratory Last Values WBC 4.5 K/mm3 (4.5-11.0) 07/25/21 05:09 RBC 3.04 M/mm3 (3.65-5.03) L 07/25/21 05:09 Hgb 11.4 gm/dl (11.8-15.2) L 07/25/21 05:09 Hct 33.8 % (35.5-45.6) L 07/25/21 05:09 MCV 111 fl (84-94) H 07/25/21 05:09 MCH 37 pg (28-32) H 07/25/21 05:09 MCHC 34 % (32-34) 07/25/21 05:09 RDW 19.7 % (13.2-15.2) H 07/25/21 05:09 Plt Count 75 K/mm3 (140-440) L 07/25/21 05:09 Lymph % (Auto) 20.7 % (13.4-35.0) 07/19/21 11:27 Nobles % (Auto) 9.7 % (0.0-7.3) H 07/19/21 11:27 Eos % (Auto) 1.4 % (0.0-4.3) 07/19/21 11:27 Baso % (Auto) 1.8 % (0.0-1.8) 07/19/21 11:27 Lymph # (Auto) 1.1 K/mm3 (1.2-5.4) L 07/19/21 11:27 Nobles # (Auto) 0.5 K/mm3 (0.0-0.8) 07/19/21 11:27 Eos # (Auto) 0.1 K/mm3 (0.0-0.4) 07/19/21 11:27 Baso # (Auto) 0.1 K/mm3 (0.0-0.1) 07/19/21 11:27 Seg Neutrophils % 66.4 % (40.0-70.0) 07/19/21 11:27 Seg Neutrophils # 3.6 K/mm3 (1.8-7.7) 07/19/21 11:27 PT 14.9 Sec. (12.2-14.9) 07/19/21 15:15 INR 1.12 (0.87-1.13) 07/19/21 15:15 APTT 28.6 Sec. (24.2-36.6) 07/19/21 15:15 Sodium 138 mmol/L (137-145) 07/25/21 05:09 Potassium 4.3 mmol/L (3.6-5.0) 07/25/21 05:09 Chloride 99.7 mmol/L (98-107) 07/25/21 05:09 Carbon Dioxide 18 mmol/L (22-30) L 07/25/21 05:09 Anion Gap 25 mmol/L 07/25/21 05:09 BUN 66 mg/dL (9-20) H 07/25/21 05:09 Creatinine 3.2 mg/dL (0.8-1.3) H 07/25/21 05:09 Estimated GFR 19 ml/min 07/25/21 05:09 BUN/Creatinine Ratio 21 % 07/25/21 05:09 Glucose 157 mg/dL (75-100) H 07/25/21 05:09 POC Glucose 159 mg/dL (70-105) H 07/22/21 11:11 Calcium 9.3 mg/dL (8.4-10.2) 07/25/21 05:09 Magnesium 2.40 mg/dL (1.7-2.3) H 07/19/21 16:41 Total Bilirubin 0.60 mg/dL (0.1-1.2) 07/19/21 11:27 AST 23 units/L (5-40) 07/19/21 11:27 ALT 18 units/L (7-56) 07/19/21 11:27 Alkaline Phosphatase 135 units/L (35-129) H 07/19/21 11:27 Total Creatine Kinase 85 units/L (55-170) 07/19/21 11:27 Troponin T 0.067 ng/mL (0.00-0.029) H 07/19/21 14:13 NT-Pro-B Natriuret Pep 00709 pg/mL (0-900) H 07/19/21 11:27 Total Protein 7.2 g/dL (6.3-8.2) 07/19/21 11:27 Albumin 3.7 g/dL (3.9-5) L 07/19/21 11:27 Albumin/Globulin Ratio 1.1 % 07/19/21 11:27 Triglycerides 127 mg/dL (2-149) 07/19/21 11:27 Cholesterol 138 mg/dL (50-199) 07/19/21 11:27 LDL Cholesterol Direct 80 mg/dL (50-130) 07/19/21 11:27 HDL Cholesterol 33 mg/dL (40-59) L 07/19/21 11:27 Cholesterol/HDL Ratio 4.18 % 07/19/21 11:27 TSH 2.410 mlU/mL (0.270-4.200) 07/19/21 16:41 Free T4 1.22 ng/dL (0.76-1.46) 07/19/21 16:41 Urine Color Yellow (Yellow) 07/20/21 Unknown Urine Turbidity Slightly-cloudy (Clear) 07/20/21 Unknown Urine pH 5.0 (5.0-7.0) 07/20/21 Unknown Ur Specific [place] 1.016 (1.003-1.030) 07/20/21 Unknown Urine Protein 100 mg/dl mg/dL (Negative) 07/20/21 Unknown Urine Glucose (UA) 50 mg/dL (Negative) 07/20/21 Unknown Urine Ketones Neg mg/dL (Negative) 07/20/21 Unknown Urine Blood Neg (Negative) 07/20/21 Unknown Urine Nitrite Neg (Negative) 07/20/21 Unknown Urine Bilirubin Neg (Negative) 07/20/21 Unknown Urine Urobilinogen < 2.0 mg/dL (<2.0) 07/20/21 Unknown Ur Leukocyte Esterase Mod (Negative) 07/20/21 Unknown Urine WBC (Auto) 43.0 /HPF (0.0-6.0) H 07/20/21 Unknown Urine RBC (Auto) 30.0 /HPF (0.0-6.0) 07/20/21 Unknown U Epithel Cells (Auto) 21.0 /HPF (0-13.0) H 07/20/21 Unknown Urine Bacteria (Auto) 1+ /HPF (Negative) 07/20/21 Unknown Hyaline Casts 15 /LPF 07/20/21 Unknown WBC Casts 8 /LPF 07/20/21 Unknown Urine Mucus Few /HPF 07/20/21 Unknown Urine Creatinine 136.0 mg/dL (0.1-20.0) H 07/20/21 Unknown Protein/Creatinin Ratio 0.68 07/20/21 Unknown Urine Sodium 42 mmol/L 07/20/21 Unknown Urine Total Protein 92 mg/dL (5-11.8) H 07/20/21 Unknown Microbiology: Microbiology 07/21/21 18:17 Peripheral/Venous Blood Culture - Preliminary NO GROWTH AFTER 72 HOURS 07/21/21 18:11 Peripheral/Venous Blood Culture - Preliminary NO GROWTH AFTER 72 HOURS Bain/IV: Voiding Method Urinal Active Medications - Current Medications Current Medications: Generic Name Dose Route Start Last Admin Trade Name Freq PRN Reason Stop Dose Admin Acetaminophen 650 mg 07/19/21 15:03 07/24/21 10:01 Acetaminophen 325 Mg Tab PO 650 mg Q4H PRN Administration Pain MILD(1-3)/Fever >100.5/AVILA Albuterol 2.5 mg 07/19/21 15:03 Albuterol 2.5 Mg/3 Ml Nebu IH Q4H PRN Shortness Of Breath Apixaban 2.5 mg 07/19/21 22:00 07/25/21 09:23 Apixaban 2.5 Mg Tab PO 2.5 mg Q12HR RIC Administration Protocol Famotidine 10 mg 07/20/21 22:00 07/25/21 09:23 Famotidine 20 Mg Tab PO 10 mg BID RIC Administration Furosemide 20 mg 07/23/21 18:00 07/25/21 06:51 Furosemide 20 Mg/2 Ml Inj IV 20 mg 0600,1800 RIC Administration Hydromorphone HCl 0.5 mg 07/24/21 14:00 07/24/21 14:25 Hydromorphone 1 Mg/1 Ml Inj IV 0.5 mg Q3H PRN Administration Pain , Severe (7-10) Ceftriaxone Sodium 1 gm in 50 mls @ 100 mls/hr 07/21/21 18:00 07/24/21 21:35 Rocephin/Ns 1 Gm/50 Ml IV 07/25/21 18:29 100 mls/hr Q24H RIC Administration Protocol Metoprolol Succinate 12.5 mg 07/25/21 22:00 Metoprolol Succinate Xl 25 Mg Tab PO BID RIC Ondansetron HCl 4 mg 07/19/21 15:03 07/24/21 03:01 Ondansetron 4 Mg/2 Ml Inj IV 4 mg Q8H PRN Administration Nausea And Vomiting Oxycodone/Acetaminophen 1 tab 07/24/21 14:00 07/25/21 09:23 Oxycodone /Acetaminophen 5-325mg Tab PO 1 tab Q6H PRN Administration Pain, Moderate (4-6) Sodium Chloride 10 ml 07/19/21 22:00 07/24/21 21:56 Sodium Chloride 0.9% 10 Ml Flush Syringe IV 10 ml BID RIC Administration Sodium Chloride 10 ml 07/19/21 15:03 Sodium Chloride 0.9% 10 Ml Flush Syringe IV PRN PRN LINE FLUSH Nutrition/Malnutrition Assess - Dietary Evaluation Nutrition/Malnutrition Findings: Nutrition Notes Start: 07/24/21 12:05 Freq: Status: Active Protocol: Document 07/24/21 12:05 GB (Rec: 07/24/21 12:18 GB [id number]) Nutrition Notes Need for Assessment generated from: LOS Initial or Follow up Assessment Current Diagnosis Acute Kidney Injury,Heart Failure Other Pertinent Diagnosis PMHx: CAD Current Diet cardiac Labs/Tests 07/24: glucose 177, BUN 63, creatinine 3.1 Pertinent Medications furosemide, NaCl Height 6 ft 2 in Weight 120.7 kg [place] Body Weight (kg) 86.36 BMI 34.1 Intake Prior to Admission Good Weight change and time frame No reported weight changes at admission Weight Status Obese Subjective/Other Information Per chart possible cath, today experiencing N/V PO intake recorded of one meal 100% Percent of energy/protein needs met: PO intake of meals at 75% or greater will meet EEN. Burn Absent Trauma Absent GI Symptoms Nausea,Vomiting Food Allergy No Skin Integrity/Comment No complications recorded Current % PO Good (75-100%) Minimum of two criteria No #1 Nutrition Diagnosis No nutrition diagnosis at this time Etiology CHF, CONCETTA As Evidenced by Signs and Symptoms good po, no reported significant weight changes Is patient on ventilator? No Is Patient Ambulatory and/or Out of Bed Yes REE-([place]-St. or-ambulatory/OOB) [ 264.275 [id number]] Kcal/Kg value to use for calculation 20 Approximate Energy Requirements Using 2414 kcal/Kg Calculation Used for Recommendations Kcal/kg Additional Notes Protein: 0.6-0.8g/kg @ 120k-96g Fluids: 1 ml/kcal or per MD Nutrition Intervention Change Diet Order: continue cardiac Nutrition Support: n/a Add Supplement/Snack (indicate name/kcal n/a /protein ) Goal #1 PO intake of meals to continue at 75% or greater daily for LOS Follow-Up By: 08/28/21 Revisit per MD consult or patient Sign Off request:
--- NOTE | 2021-07-25 13:38 | Progress Note ---
Assessment and Plan 1. Acute kidney injury: CONCETTA superimposed on CKD-3 in the setting of decompensated CHF. Renal US negative. Monitor renal function. Creatinine level remains high. Renal prognosis is guarded. Avoid nephrotoxic agents. Meds dosage based on GFR. 2. FEN: Mild metabolic acidosis, monitor. Volume overload, diuretics as BP allows. Monitor lytes and volume status. 3. A.fib with RVR: On Eliquis. Monitor. 4. Decompensated CHF / Elevated troponin, POA: Followed by Cards. Monitor. 5. DM-2. 6. HTN. 7. Tobacco use: Counseled. Subjective: Patient was seen and examined at the bedside. Examination: General appearance: obese, well-developed, appears stated age, not in distress HEENT: atraumatic Neck: trachea midline Respiratory: diminished breath sounds Heart: S1S2, irregular, no murmur Abdomen: soft, obese, bowel sounds heard, Integumentary: LE discoloration, extensive erythema noted Neurologic: AO, able to move extremities Ext: 1+ LE edema Subjective Date of service: 07/25/21 Principal diagnosis: Acute on chronic HFrEF Objective - Vital Signs Vital signs: Vital Signs - 12hr 07/25/21 09:23 Respiratory 20 Rate - Lab 07/25/21 05:09 07/26/21 05:24 Most recent lab results Calcium 9.3 mg/dL (8.4-10.2) 07/25/21 05:09 Magnesium 2.40 mg/dL (1.7-2.3) H 07/19/21 16:41 Urine Creatinine 136.0 mg/dL (0.1-20.0) H 07/20/21 Unknown Urine Sodium 42 mmol/L 07/20/21 Unknown Urine Total Protein 92 mg/dL (5-11.8) H 07/20/21 Unknown Medications & Allergies - Medications Allergies/Adverse Reactions: Allergies No Known Allergies Allergy (Verified 07/19/21 10:06) Home Medications: Home Medications Medication Instructions Recorded Confirmed Last Taken Type No Known Home Medications [No 07/19/21 07/19/21 Unknown History Reported Home Medications] Active Medications: Generic Name Dose Route Start Last Admin Trade Name Freq PRN Reason Stop Dose Admin Acetaminophen 650 mg 07/19/21 15:03 07/24/21 10:01 Acetaminophen 325 Mg Tab PO 650 mg Q4H PRN Administration Pain MILD(1-3)/Fever >100.5/AVILA Albuterol 2.5 mg 07/19/21 15:03 Albuterol 2.5 Mg/3 Ml Nebu IH Q4H PRN Shortness Of Breath Apixaban 2.5 mg 07/19/21 22:00 07/25/21 09:23 Apixaban 2.5 Mg Tab PO 2.5 mg Q12HR RIC Administration Protocol Famotidine 10 mg 07/20/21 22:00 07/25/21 09:23 Famotidine 20 Mg Tab PO 10 mg BID RIC Administration Furosemide 20 mg 07/23/21 18:00 07/25/21 06:51 Furosemide 20 Mg/2 Ml Inj IV 20 mg 0600,1800 RIC Administration Hydromorphone HCl 0.5 mg 07/24/21 14:00 07/24/21 14:25 Hydromorphone 1 Mg/1 Ml Inj IV 0.5 mg Q3H PRN Administration Pain , Severe (7-10) Ceftriaxone Sodium 1 gm in 50 mls @ 100 mls/hr 07/21/21 18:00 07/24/21 21:35 Rocephin/Ns 1 Gm/50 Ml IV 07/25/21 18:29 100 mls/hr Q24H RIC Administration Protocol Metoprolol Succinate 12.5 mg 07/25/21 22:00 Metoprolol Succinate Xl 25 Mg Tab PO BID RIC Ondansetron HCl 4 mg 07/19/21 15:03 07/24/21 03:01 Ondansetron 4 Mg/2 Ml Inj IV 4 mg Q8H PRN Administration Nausea And Vomiting Oxycodone/Acetaminophen 1 tab 07/24/21 14:00 07/25/21 09:23 Oxycodone /Acetaminophen 5-325mg Tab PO 1 tab Q6H PRN Administration Pain, Moderate (4-6) Sodium Chloride 10 ml 07/19/21 22:00 07/24/21 21:56 Sodium Chloride 0.9% 10 Ml Flush Syringe IV 10 ml BID RIC Administration Sodium Chloride 10 ml 07/19/21 15:03 Sodium Chloride 0.9% 10 Ml Flush Syringe IV PRN PRN LINE FLUSH
[2021-07-25] MEDS: HYDROmorphone 1 MG/1 ML INJ IV PRN (13:45)
[2021-07-25] MEDS: ONDANSETRON 4 MG/2 ML INJ IV PRN ×2 (15:07→22:17)
[2021-07-25] MEDS: cefTRIAXone/NS 1 GM/50 ML 1 GM/50 ML BAG IV SCH (18:49)
[2021-07-25] MEDS: METOPROLOL SUCCINATE XL 25 MG TAB PO SCH (23:42)
[2021-07-26] MEDS: ONDANSETRON 4 MG/2 ML INJ IV PRN (05:15)
[2021-07-26] MEDS: FUROSEMIDE 20 MG/2 ML INJ IV SCH ×2 (06:00→18:25)
[2021-07-26 06:26] LABS: Calcium 9.5 mg/dL (8.4-10.2)
[2021-07-26] MEDS: oxyCODONE /ACETAMINOPHEN 5-325MG TAB PO PRN ×3 (06:44→22:59)
[2021-07-26] MEDS: FAMOTIDINE 20 MG TAB PO SCH ×2 (10:21→22:54)
[2021-07-26] MEDS: APIXABAN 2.5 MG TAB PO SCH ×2 (10:22→22:54)
[2021-07-26] MEDS: METOPROLOL SUCCINATE XL 25 MG TAB PO SCH ×2 (10:22→22:53)
--- NOTE | 2021-07-26 11:38 | Progress Note ---
Assessment and Plan 1. Acute kidney injury: CONCETTA superimposed on CKD-3 in the setting of decompensated CHF. Renal US negative. Monitor renal function. Creatinine level improving. Renal prognosis is guarded. Avoid nephrotoxic agents. Meds dosage based on GFR. 2. FEN: Mild metabolic acidosis, monitor. Volume overload, diuretics as BP allows. Monitor lytes and volume status. 3. A.fib with RVR: On Eliquis. Monitor. 4. Decompensated CHF / Elevated troponin, POA: Followed by Cards. Monitor. 5. DM-2. 6. HTN. 7. Tobacco use: Counseled. Subjective: Patient was not examined today. However the examination findings from other providers noted. The current and previous medical records are reviewed in detail as are laboratory and imaging data reviewed when appropriate. Medications being given are also reviewed. In addition the case has been discussed with the attending hospitalist and the nurse when needed. New renal recommendations as above. Examination: Subjective Date of service: 07/26/21 Principal diagnosis: Acute on chronic HFrEF Objective - Vital Signs Vital signs: Vital Signs - 12hr 07/25/21 07/25/21 07/25/21 23:41 23:42 23:55 Temperature Pulse Rate 833 H 83 Respiratory 17 Rate Blood Pressure 123/58 Blood Pressure 123/58 [Left] O2 Sat by Pulse Oximetry 07/26/21 07/26/21 07/26/21 02:50 04:28 06:07 Temperature 97.5 F L Pulse Rate 66 104 H 120 H Respiratory 18 Rate Blood Pressure 134/96 Blood Pressure [Left] O2 Sat by Pulse 93 Oximetry 07/26/21 07/26/21 07/26/21 07:44 08:09 10:22 Temperature 98.9 F Pulse Rate 92 H 92 H Respiratory 17 20 Rate Blood Pressure 117/74 Blood Pressure [Left] O2 Sat by Pulse 95 Oximetry - Lab 07/27/21 11:02 07/27/21 04:56 Most recent lab results Calcium 9.5 mg/dL (8.4-10.2) 07/26/21 05:24 Magnesium 2.40 mg/dL (1.7-2.3) H 07/19/21 16:41 Urine Creatinine 136.0 mg/dL (0.1-20.0) H 07/20/21 Unknown Urine Sodium 42 mmol/L 07/20/21 Unknown Urine Total Protein 92 mg/dL (5-11.8) H 07/20/21 Unknown Medications & Allergies - Medications Allergies/Adverse Reactions: Allergies No Known Allergies Allergy (Verified 07/19/21 10:06) Home Medications: Home Medications Medication Instructions Recorded Confirmed Last Taken Type Apixaban [Eliquis] 2.5 mg PO Q12HR #60 tablet 07/27/21 Unknown Rx Famotidine [Pepcid] 10 mg PO BID #60 tablet 07/27/21 Unknown Rx Furosemide [Lasix TAB] 40 mg PO QDAY #30 tablet 07/27/21 Unknown Rx Metoprolol Xl [Metoprolol 12.5 mg PO BID #60 tablet 07/27/21 Unknown Rx SUCCINATE ER TAB] Active Medications: Generic Name Dose Route Start Last Admin Trade Name Freq PRN Reason Stop Dose Admin Acetaminophen 650 mg 07/19/21 15:03 07/24/21 10:01 Acetaminophen 325 Mg Tab PO 650 mg Q4H PRN Administration Pain MILD(1-3)/Fever >100.5/AVILA Albuterol 2.5 mg 07/19/21 15:03 Albuterol 2.5 Mg/3 Ml Nebu IH Q4H PRN Shortness Of Breath Apixaban 2.5 mg 07/19/21 22:00 07/26/21 10:22 Apixaban 2.5 Mg Tab PO 2.5 mg Q12HR RIC Administration Protocol Famotidine 10 mg 07/20/21 22:00 07/26/21 10:21 Famotidine 20 Mg Tab PO 10 mg BID RIC Administration Furosemide 20 mg 07/23/21 18:00 07/26/21 06:00 Furosemide 20 Mg/2 Ml Inj IV 20 mg 0600,1800 RIC Administration Hydromorphone HCl 0.5 mg 07/24/21 14:00 07/25/21 13:45 Hydromorphone 1 Mg/1 Ml Inj IV 0.5 mg Q3H PRN Administration Pain , Severe (7-10) Metoprolol Succinate 12.5 mg 07/25/21 22:00 07/26/21 10:22 Metoprolol Succinate Xl 25 Mg Tab PO 12.5 mg BID RIC Administration Ondansetron HCl 4 mg 07/19/21 15:03 07/26/21 05:15 Ondansetron 4 Mg/2 Ml Inj IV 4 mg Q8H PRN Administration Nausea And Vomiting Oxycodone/Acetaminophen 1 tab 07/24/21 14:00 07/26/21 06:44 Oxycodone /Acetaminophen 5-325mg Tab PO 1 tab Q6H PRN Administration Pain, Moderate (4-6) Sodium Chloride 10 ml 07/19/21 22:00 07/26/21 10:22 Sodium Chloride 0.9% 10 Ml Flush Syringe IV 10 ml BID RIC Administration Sodium Chloride 10 ml 07/19/21 15:03 Sodium Chloride 0.9% 10 Ml Flush Syringe IV PRN PRN LINE FLUSH
--- NOTE | 2021-07-26 11:56 | Progress Note ---
Assessment and Plan Assessment and plan: Acute on chronic systolic CHF exacerbation. Echo 07/19/2021-EF 15 to 20%, severe global hypokinesis of left ventricle, mild concentric left ventricular hypertrophy, mild aortic regurgitation, there is aortic stenosis unable to determine peak velocity due to A. fib, moderate tricuspid regurgitation, moder ate pulmonary hypertension. Cannot be started on MILAGRO or ARB at this time due to acute kidney injury. Started on dobutamine on 07/23/2021 and beta-abilio held. Plan is to repeat limited echocardiogram left heart cath. Cardiology is managing. Atrial fibrillation was in RVR. Rate is currently controlled. Also on Eliquis. Acute kidney injury on CKD 3. No significant change in creatinine since adm ission. Nephrology is on board. Nicotine dependence. Obesity hypoventilation syndrome. Hypertension. Diabetes mellitus type 2. Elevated troponin. Lexiscan MPI stress test 07/21/2021-Technically difficult study, but probably normal without evidence of significant ischemia or prior infarction. No gating due to atrial fibrillation. Plan is for left heart cath. Fever. Possible UTI with mild pyuria though sample was definitely contaminated with epithelial cells cells. ID recommended 5 days of antibiotic. 07/20/2021. BNP elevated on admission at 18,662. Troponin is also elevated 0.69 and 0.067 respectively. Chest x-ray revealed bilateral right greater than left pleural effusions with bibasilar opacities. Follow-up echocardiogram to assess systolic/diastolic function. Await cardiology recommendations. Continue diuresis per cardiology. Amiodarone discontinued. Continue diltiazem 30 mg p.o. 6 hours for rate control. Continue anticoagulation with Eliquis 2.5 mg twice daily. Follow-up urine studies and renal ultrasound per nephrology recommendations. Renal prognosis is guarded. 07/21/2021 Patient with afib with RVR, Acute on chronic systolic CHF, EF 15-20%. CXR with bilateral pleural effusions, bibasilar opacities. Will repeat in am. Also has UTI. Now has fever. Start Ceftriaxone. Obtain blood cultures. 07/22/2021 Patient with afib with RVR, Acute on chronic systolic CHF, EF 15-20%. CXR with bilateral pleural effusions, bibasilar opacities. Yesterday had fever o f 101.7 . Also has UTI. Started Ceftriaxone for UTI. Obtained blood cultures. Consulted ID to see. Cardiology planning on cardiac cath when Creatinine normalizes. 07/23/2021. Cardiology still has plan for cardiac cath based on renal function. ID recommended 5 days of ceftriaxone on if discharging will go with omnicef 300mg q12h 07/24/2021. Patient was started on dobutamine drip yesterday, Lasix 20 mg IV twice daily and beta-abilio discontinued. Recommend resumption of gentle IV diuresis. Plan by cardiology is also to repeat limited echo on dobutamine today to re-assess AV and LHC when renal fxn has stabilized and pt's volume status is adequately optimized. 07/25/2021 Patient with afib with RVR, Acute on chronic systolic CHF, EF 15-20%. Treated with Dobutamine drip. Cardiology wants to do cardiac cath when renally cleared. nausea and vomiting today. Zofran iv prn. 07/26/2021 Patient with afib with RVR, Acute on chronic systolic CHF, EF 15- 20%. Cardiology to do cath when cleared by nephrology. CONCETTA on CKD improving Cr 2.7 today. History Interval history: Initially SOB, palpitations, found to have CHF exacerbation Now c/o nausea and vomiting Hospitalist Physical - Physical exam Narrative exam: Gen: Not in acute distress, sitting up in bed HEENT: Normocephalic, atraumatic Neck: supple, Lungs: Clear to auscultation bilaterally, no wheeze Heart: S1 and S2 irreg, irreg no murmurs, rubs or gallop Abd:soft, non-tender, non distended, normal bowel sounds Ext: Bilateral gross pitting pedal edema, no clubbing or cyanosis Neuro: Awake, alert, oriented X 3, moves all extremities - Constitutional Vitals: Temp Pulse Resp BP Pulse Ox 98.9 F 92 H 20 117/74 95 07/26/21 08:09 07/26/21 10:22 07/26/21 08:09 07/26/21 08:09 07/26/21 08:09 General appearance: Present: no acute distress HEART Score - HEART Score EKG: Non-specific Age: > 65 Risk factors: 1-2 risk factors Troponin: Troponin T 0.067 ng/mL (0.00-0.029) H 07/19/21 14:13 Troponin: 1-3x normal limit Results - Labs CBC & Chem 7: 07/25/21 05:09 07/26/21 05:24 Labs: Laboratory Last Values WBC 4.5 K/mm3 (4.5-11.0) 07/25/21 05:09 RBC 3.04 M/mm3 (3.65-5.03) L 07/25/21 05:09 Hgb 11.4 gm/dl (11.8-15.2) L 07/25/21 05:09 Hct 33.8 % (35.5-45.6) L 07/25/21 05:09 MCV 111 fl (84-94) H 07/25/21 05:09 MCH 37 pg (28-32) H 07/25/21 05:09 MCHC 34 % (32-34) 07/25/21 05:09 RDW 19.7 % (13.2-15.2) H 07/25/21 05:09 Plt Count 75 K/mm3 (140-440) L 07/25/21 05:09 Lymph % (Auto) 20.7 % (13.4-35.0) 07/19/21 11:27 [place] % (Auto) 9.7 % (0.0-7.3) H 07/19/21 11:27 Eos % (Auto) 1.4 % (0.0-4.3) 07/19/21 11:27 Baso % (Auto) 1.8 % (0.0-1.8) 07/19/21 11:27 Lymph # (Auto) 1.1 K/mm3 (1.2-5.4) L 07/19/21 11:27 [place] # (Auto) 0.5 K/mm3 (0.0-0.8) 07/19/21 11:27 Eos # (Auto) 0.1 K/mm3 (0.0-0.4) 07/19/21 11:27 Baso # (Auto) 0.1 K/mm3 (0.0-0.1) 07/19/21 11:27 Seg Neutrophils % 66.4 % (40.0-70.0) 07/19/21 11:27 Seg Neutrophils # 3.6 K/mm3 (1.8-7.7) 07/19/21 11:27 PT 14.9 Sec. (12.2-14.9) 07/19/21 15:15 INR 1.12 (0.87-1.13) 07/19/21 15:15 APTT 28.6 Sec. (24.2-36.6) 07/19/21 15:15 Sodium 140 mmol/L (137-145) 07/26/21 05:24 Potassium 4.1 mmol/L (3.6-5.0) 07/26/21 05:24 Chloride 100.9 mmol/L (98-107) 07/26/21 05:24 Carbon Dioxide 22 mmol/L (22-30) 07/26/21 05:24 Anion Gap 21 mmol/L 07/26/21 05:24 BUN 59 mg/dL (9-20) H 07/26/21 05:24 Creatinine 2.7 mg/dL (0.8-1.3) H 07/26/21 05:24 Estimated GFR 23 ml/min 07/26/21 05:24 BUN/Creatinine Ratio 22 % 07/26/21 05:24 Glucose 148 mg/dL (75-100) H 07/26/21 05:24 POC Glucose 159 mg/dL (70-105) H 07/22/21 11:11 Calcium 9.5 mg/dL (8.4-10.2) 07/26/21 05:24 Magnesium 2.40 mg/dL (1.7-2.3) H 07/19/21 16:41 Total Bilirubin 0.60 mg/dL (0.1-1.2) 07/19/21 11:27 AST 23 units/L (5-40) 07/19/21 11:27 ALT 18 units/L (7-56) 07/19/21 11:27 Alkaline Phosphatase 135 units/L (35-129) H 07/19/21 11:27 Total Creatine Kinase 85 units/L (55-170) 07/19/21 11:27 Troponin T 0.067 ng/mL (0.00-0.029) H 07/19/21 14:13 NT-Pro-B Natriuret Pep 32692 pg/mL (0-900) H 07/19/21 11:27 Total Protein 7.2 g/dL (6.3-8.2) 07/19/21 11:27 Albumin 3.7 g/dL (3.9-5) L 07/19/21 11:27 Albumin/Globulin Ratio 1.1 % 07/19/21 11:27 Triglycerides 127 mg/dL (2-149) 07/19/21 11:27 Cholesterol 138 mg/dL (50-199) 07/19/21 11:27 LDL Cholesterol Direct 80 mg/dL (50-130) 07/19/21 11:27 HDL Cholesterol 33 mg/dL (40-59) L 07/19/21 11:27 Cholesterol/HDL Ratio 4.18 % 07/19/21 11:27 TSH 2.410 mlU/mL (0.270-4.200) 07/19/21 16:41 Free T4 1.22 ng/dL (0.76-1.46) 07/19/21 16:41 Urine Color Yellow (Yellow) 07/20/21 Unknown Urine Turbidity Slightly-cloudy (Clear) 07/20/21 Unknown Urine pH 5.0 (5.0-7.0) 07/20/21 Unknown Ur Specific [place] 1.016 (1.003-1.030) 07/20/21 Unknown Urine Protein 100 mg/dl mg/dL (Negative) 07/20/21 Unknown Urine Glucose (UA) 50 mg/dL (Negative) 07/20/21 Unknown Urine Ketones Neg mg/dL (Negative) 07/20/21 Unknown Urine Blood Neg (Negative) 07/20/21 Unknown Urine Nitrite Neg (Negative) 07/20/21 Unknown Urine Bilirubin Neg (Negative) 07/20/21 Unknown Urine Urobilinogen < 2.0 mg/dL (<2.0) 07/20/21 Unknown Ur Leukocyte Esterase Mod (Negative) 07/20/21 Unknown Urine WBC (Auto) 43.0 /HPF (0.0-6.0) H 07/20/21 Unknown Urine RBC (Auto) 30.0 /HPF (0.0-6.0) 07/20/21 Unknown U Epithel Cells (Auto) 21.0 /HPF (0-13.0) H 07/20/21 Unknown Urine Bacteria (Auto) 1+ /HPF (Negative) 07/20/21 Unknown Hyaline Casts 15 /LPF 07/20/21 Unknown WBC Casts 8 /LPF 07/20/21 Unknown Urine Mucus Few /HPF 07/20/21 Unknown Urine Creatinine 136.0 mg/dL (0.1-20.0) H 07/20/21 Unknown Protein/Creatinin Ratio 0.68 07/20/21 Unknown Urine Sodium 42 mmol/L 07/20/21 Unknown Urine Total Protein 92 mg/dL (5-11.8) H 07/20/21 Unknown Microbiology: Microbiology 07/21/21 18:17 Peripheral/Venous Blood Culture - Preliminary NO GROWTH AFTER 4 DAYS 07/21/21 18:11 Peripheral/Venous Blood Culture - Preliminary NO GROWTH AFTER 4 DAYS Bain/IV: Voiding Method Urinal Active Medications - Current Medications Current Medications: Generic Name Dose Route Start Last Admin Trade Name Freq PRN Reason Stop Dose Admin Acetaminophen 650 mg 07/19/21 15:03 07/24/21 10:01 Acetaminophen 325 Mg Tab PO 650 mg Q4H PRN Administration Pain MILD(1-3)/Fever >100.5/AVILA Albuterol 2.5 mg 07/19/21 15:03 Albuterol 2.5 Mg/3 Ml Nebu IH Q4H PRN Shortness Of Breath Apixaban 2.5 mg 07/19/21 22:00 07/26/21 10:22 Apixaban 2.5 Mg Tab PO 2.5 mg Q12HR RIC Administration Protocol Famotidine 10 mg 07/20/21 22:00 07/26/21 10:21 Famotidine 20 Mg Tab PO 10 mg BID RIC Administration Furosemide 20 mg 07/23/21 18:00 07/26/21 06:00 Furosemide 20 Mg/2 Ml Inj IV 20 mg 0600,1800 RIC Administration Hydromorphone HCl 0.5 mg 07/24/21 14:00 07/25/21 13:45 Hydromorphone 1 Mg/1 Ml Inj IV 0.5 mg Q3H PRN Administration Pain , Severe (7-10) Metoprolol Succinate 12.5 mg 07/25/21 22:00 07/26/21 10:22 Metoprolol Succinate Xl 25 Mg Tab PO 12.5 mg BID RIC Administration Ondansetron HCl 4 mg 07/19/21 15:03 07/26/21 05:15 Ondansetron 4 Mg/2 Ml Inj IV 4 mg Q8H PRN Administration Nausea And Vomiting Oxycodone/Acetaminophen 1 tab 07/24/21 14:00 07/26/21 06:44 Oxycodone /Acetaminophen 5-325mg Tab PO 1 tab Q6H PRN Administration Pain, Moderate (4-6) Sodium Chloride 10 ml 07/19/21 22:00 07/26/21 10:22 Sodium Chloride 0.9% 10 Ml Flush Syringe IV 10 ml BID RIC Administration Sodium Chloride 10 ml 07/19/21 15:03 Sodium Chloride 0.9% 10 Ml Flush Syringe IV PRN PRN LINE FLUSH Nutrition/Malnutrition Assess - Dietary Evaluation Nutrition/Malnutrition Findings: Nutrition Notes Start: 07/24/21 12:05 Freq: Status: Active Protocol: Document 07/24/21 12:05 GB (Rec: 07/24/21 12:18 GB [id number]) Nutrition Notes Need for Assessment generated from: LOS Initial or Follow up Assessment Current Diagnosis Acute Kidney Injury,Heart Failure Other Pertinent Diagnosis PMHx: CAD Current Diet cardiac Labs/Tests 07/24: glucose 177, BUN 63, creatinine 3.1 Pertinent Medications furosemide, NaCl Height 6 ft 2 in Weight 120.7 kg [place] Body Weight (kg) 86.36 BMI 34.1 Intake Prior to Admission Good Weight change and time frame No reported weight changes at admission Weight Status Obese Subjective/Other Information Per chart possible cath, today experiencing N/V PO intake recorded of one meal 100% Percent of energy/protein needs met: PO intake of meals at 75% or greater will meet EEN. Burn Absent Trauma Absent GI Symptoms Nausea,Vomiting Food Allergy No Skin Integrity/Comment No complications recorded Current % PO Good (75-100%) Minimum of two criteria No #1 Nutrition Diagnosis No nutrition diagnosis at this time Etiology CHF, CONCETTA As Evidenced by Signs and Symptoms good po, no reported significant weight changes Is patient on ventilator? No Is Patient Ambulatory and/or Out of Bed Yes REE-([facility]-ambulatory/OOB) [ 2641.275 [id number]] Kcal/Kg value to use for calculation 20 Approximate Energy Requirements Using 2414 kcal/Kg Calculation Used for Recommendations Kcal/kg Additional Notes Protein: 0.6-0.8g/kg @ 120k-96g Fluids: 1 ml/kcal or per MD Nutrition Intervention Change Diet Order: continue cardiac Nutrition Support: n/a Add Supplement/Snack (indicate name/kcal n/a /protein ) Goal #1 PO intake of meals to continue at 75% or greater daily for LOS Follow-Up By: 08/28/21 Revisit per MD consult or patient Sign Off request:
--- NOTE | 2021-07-26 17:22 | Progress Note ---
Assessment and Plan Although limited echo performed to assess severity of aortic stenosis was incomplete as regards required parameters (the technologist stated that the patient declined further imaging), based on the limited measurements obtained, the patient probably has severe aortic stenosis. Ultimately, he will likely benefit from AVR, probably TAVR. CATH will be beneficial when renal indices permit. If hematology evaluation has not been obtained, this will be necessary especially with persistent thrombocytopenia and the requirement for anticoagulat ion for AF. - Patient Problems (1) Acute on chronic HFrEF (heart failure with reduced ejection fraction) Current Visit: Yes Status: Acute (2) Cardiomyopathy Current Visit: Yes Status: Chronic (3) Atrial fibrillation with RVR Current Visit: Yes Status: Acute (4) Severe aortic stenosis Current Visit: Yes Status: Acute (5) Acute kidney injury superimposed on CKD Current Visit: Yes Status: Acute (6) Chest pain Current Visit: Yes Status: Acute (7) Thrombocytopenia Current Visit: Yes Status: Acute (8) Obesity hypoventilation syndrome Current Visit: Yes Status: Chronic Subjective Date of service: 07/26/21 Principal diagnosis: Acute on chronic HFrEF Interval history: He feels better. Objective Vital Signs Last Vital Signs Temp 97.0 F L 07/26/21 16:38 Pulse 89 07/26/21 16:39 Resp 18 07/26/21 16:38 BP 107/73 07/26/21 16:38 Pulse Ox 94 07/26/21 16:39 - Physical Examination General: No Apparent Distress HEENT: Positive: EOMI, Normocephaly, Mucus Membranes Moist Neck: Positive: neck supple, trachea midline Cardiac: Positive: irregularly irregular, S1/S2, Systolic Murmur Neuro: Positive: Grossly Intact Abdomen: Positive: Soft, Active Bowel Sounds. Negative: Tender Skin: Negative: Rash Musculoskeletal: Normal Range of Motion Extremities: Present: +2 Edema (both legs) - Labs and Meds Comprehensive Metabolic Panel 07/26/21 Range/Units 05:24 Sodium 140 (137-145) mmol/L Potassium 4.1 (3.6-5.0) mmol/L Chloride 100.9 (98-107) mmol/L Carbon Dioxide 22 (22-30) mmol/L BUN 59 H (9-20) mg/dL Creatinine 2.7 H (0.8-1.3) mg/dL Glucose 148 H (75-100) mg/dL Calcium 9.5 (8.4-10.2) mg/dL - Imaging and Cardiology Echo: image reviewed - EKG Supraventricular dysrhythmia: atrial fibrillation (with CVR) Repolarization changes or abnormalities: nonspecific abnormality, ST segment, and/or T wave
[2021-07-27] MEDS ORDERED: FUROSEMIDE 20 MG TAB PO ONE (05:39)
[2021-07-27] MEDS: FUROSEMIDE 20 MG/2 ML INJ IV SCH (05:40)
[2021-07-27 06:34] LABS: Calcium 9.1 mg/dL (8.4-10.2)
[2021-07-27 09:17] VITALS: BP 122/86
--- NOTE | 2021-07-27 09:55 | Progress Note ---
Assessment and Plan Patient is a 71 y/o male with a pmhx of CHF, HTN, COVID-19, and CKD who presented with a complaint of worsening SOB and palpitations x2 days Afib w/RVR HFrEF HTN Aortic Stenosis * Patient currently on Metprolol XL 12.5 PO BID, Eliquis 2.5mg PO BID Lasix 20mg IV BID * Echo 07/19/2021-EF 15 to 20%, severe global hypokinesis of left ventricle, mild concentric left ventricular hypertrophy, mild aortic regurgitation, there is aortic stenosis unable to determine peak velocity due to A. fib, moderate tricuspid regurgitation, moderate pulmonary hypertension * Lexiscan MPI stress test 07/21/2021-Technically difficult study, but probably normal without evidence of significant ischemia or prior infarction. No gating due to atrial fibrillation CONCETTA on CKD * Patient creatinine 3.5 this admission. has down trended to 2.3 today Upon review of outside records this is noted to be higher than his baseline of 1.4 * Nephrology following Plan: Patient is adamant about leaving today. Explained the importance of staying and the risk and benefits of staying in hospital but patient insists on leaving. Will plan for [facility] as an outpatient Upon discharge patient should be on Metoprolol XL 12.5mg PO BID, Eliquis, and Lasix 40mg PO QD Patient should follow up with Dr. Ceron, [facility], on 08/10/2021 at 9:30am at our [place] location. Patient seen in conjunction with Dr. Ceron who agrees with this plan of care. - Patient Problems (1) Acute kidney injury (CONCETTA) with acute tubular necrosis (ATN) Current Visit: Yes Status: Acute (2) Atrial fibrillation with RVR Current Visit: Yes Status: Acute (3) CHF exacerbation Current Visit: Yes Status: Acute Qualifiers: Heart failure type: systolic Qualified Code(s): I50.23 - Acute on chronic systolic (congestive) heart failure (4) Chest pain Current Visit: Yes Status: Acute (5) Nicotine dependence Current Visit: Yes Status: Chronic Qualifiers: Nicotine product type: cigarettes Substance use status: in withdrawal Qualified Code(s): F17.213 - Nicotine dependence, cigarettes, with withdrawal (6) Obesity hypoventilation syndrome Current Visit: Yes Status: Chronic (7) Noncompliance Current Visit: Yes Status: Acute Subjective Date of service: 07/27/21 Principal diagnosis: Acute on chronic HFrEF Interval history: Patient lying in bed. He states "I am leaving today" Afib 90s-100s. on monitor Objective Vital Signs Temp Pulse Resp Resp Resp BP Pulse Ox 07/27/21 08:09 97.9 F 52 L 18 122/86 96 07/27/21 05:56 97.9 F 89 16 117/78 97 07/27/21 04:00 90 07/27/21 00:05 97.3 F L 51 L 16 136/88 97 07/26/21 22:59 17 07/26/21 22:53 99 H 107/76 07/26/21 22:00 96 07/26/21 20:00 93 H 17 18 07/26/21 19:32 98.2 F 48 L 16 103/76 93 07/26/21 16:39 89 94 07/26/21 16:38 97.0 F L 18 107/73 07/26/21 10:22 92 H 07/26/21 10:00 92 H 97 - Physical Examination General: No Apparent Distress HEENT: Positive: EOMI, Normocephaly, Mucus Membranes Moist Neck: Positive: neck supple, trachea midline Cardiac: Positive: irregularly irregular Lungs: Positive: Decreased Breath Sounds Neuro: Positive: Grossly Intact Abdomen: Positive: Soft, Active Bowel Sounds. Negative: Tender Skin: Negative: Rash Musculoskeletal: Normal Range of Motion Extremities: Present: +2 Edema (both legs) - Labs and Meds Comprehensive Metabolic Panel 07/27/21 Range/Units 04:56 Sodium 138 (137-145) mmol/L Potassium 4.3 (3.6-5.0) mmol/L Chloride 100.0 (98-107) mmol/L Carbon Dioxide 21 L (22-30) mmol/L BUN 53 H (9-20) mg/dL Creatinine 2.3 H (0.8-1.3) mg/dL Glucose 143 H (75-100) mg/dL Calcium 9.1 (8.4-10.2) mg/dL - Imaging and Cardiology EKG: report reviewed, image reviewed Echo: image reviewed - Telemetry EKG Rhythm: Atrial Fibrillation - EKG Supraventricular dysrhythmia: atrial fibrillation Repolarization changes or abnormalities: nonspecific abnormality, ST segment, and/or T wave
--- NOTE | 2021-07-27 10:05 | Hem/Onc Consultation ---
History of Present Illness - Reason for Consult Consult date: 07/27/21 thrombocytopenia, needs eliquis for afib - History of Present Illness Heme consult note CPT 71422 Dx: thrombocytopenia This is a 71yo obese male who presents to ED with chest pain and shortness of breath Acute on chronic systolic CHF exacerbation recent discharge from [facility]--diagnosed with class 4 CHF Echo 07/19/2021--EF 15 to 20% Elevated troponin Cardiology planning for cardiac cath when cleared by nephro d/t CONCETTA Afib with RVR--rate is controlled needs eliquis but noted to have thrombocytopenia CONCETTA--CKD 3--no significant change in creatinine since admission--Nephrology following Fever--possible UTI--ID following with antibiotic recommendations Past medical history of obesity, HTN, diabetes, nicotine dependence--current daily smoker Covid infection 05/2021 Denies bleeding Wants to be discharged DATA REVIEWED BELOW WBC 4.5 Hgb 11.6 Hct 34.8 MCV 113 Plt 68 IMP: 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 REC/PLAN: OK to discharge on eliquis with follow-up arranged outpatient [id number] lab before discharge Laboratory Last Values WBC 4.5 K/mm3 (4.5-11.0) 07/27/21 11:02 RBC 3.05 M/mm3 (3.65-5.03) L 07/27/21 11:02 Hgb 11.6 gm/dl (11.8-15.2) L 07/27/21 11:02 Hct 34.5 % (35.5-45.6) L 07/27/21 11:02 MCV 113 fl (84-94) H 07/27/21 11:02 MCH 38 pg (28-32) H 07/27/21 11:02 MCHC 34 % (32-34) 07/27/21 11:02 RDW 20.6 % (13.2-15.2) H 07/27/21 11:02 Plt Count 68 K/mm3 (140-440) L 07/27/21 11:02 Lymph % (Auto) 23.0 % (13.4-35.0) 07/27/21 11:02 [place] % (Auto) 14.0 % (0.0-7.3) H 07/27/21 11:02 Eos % (Auto) 1.2 % (0.0-4.3) 07/27/21 11:02 Baso % (Auto) 1.4 % (0.0-1.8) 07/27/21 11:02 Lymph # (Auto) 1.0 K/mm3 (1.2-5.4) L 07/27/21 11:02 [place] # (Auto) 0.6 K/mm3 (0.0-0.8) 07/27/21 11:02 Eos # (Auto) 0.1 K/mm3 (0.0-0.4) 07/27/21 11:02 Baso # (Auto) 0.1 K/mm3 (0.0-0.1) 07/27/21 11:02 Seg Neutrophils % 60.3 % (40.0-70.0) 07/27/21 11:02 Seg Neutrophils # 2.8 K/mm3 (1.8-7.7) 07/27/21 11:02 PT 14.9 Sec. (12.2-14.9) 07/19/21 15:15 INR 1.12 (0.87-1.13) 07/19/21 15:15 APTT 28.6 Sec. (24.2-36.6) 07/19/21 15:15 Sodium 138 mmol/L (137-145) 07/27/21 04:56 Potassium 4.3 mmol/L (3.6-5.0) 07/27/21 04:56 Chloride 100.0 mmol/L (98-107) 07/27/21 04:56 Carbon Dioxide 21 mmol/L (22-30) L 07/27/21 04:56 Anion Gap 21 mmol/L 07/27/21 04:56 BUN 53 mg/dL (9-20) H 07/27/21 04:56 Creatinine 2.3 mg/dL (0.8-1.3) H 07/27/21 04:56 Estimated GFR 28 ml/min 07/27/21 04:56 BUN/Creatinine Ratio 23 % 07/27/21 04:56 Glucose 143 mg/dL (75-100) H 07/27/21 04:56 POC Glucose 159 mg/dL (70-105) H 07/22/21 11:11 Calcium 9.1 mg/dL (8.4-10.2) 07/27/21 04:56 Magnesium 2.40 mg/dL (1.7-2.3) H 07/19/21 16:41 Total Bilirubin 0.60 mg/dL (0.1-1.2) 07/19/21 11:27 AST 23 units/L (5-40) 07/19/21 11:27 ALT 18 units/L (7-56) 07/19/21 11:27 Alkaline Phosphatase 135 units/L (35-129) H 07/19/21 11:27 Total Creatine Kinase 85 units/L (55-170) 07/19/21 11:27 Troponin T 0.067 ng/mL (0.00-0.029) H 07/19/21 14:13 NT-Pro-B Natriuret Pep 06227 pg/mL (0-900) H 07/19/21 11:27 Total Protein 7.2 g/dL (6.3-8.2) 07/19/21 11:27 Albumin 3.7 g/dL (3.9-5) L 07/19/21 11:27 Albumin/Globulin Ratio 1.1 % 07/19/21 11:27 Triglycerides 127 mg/dL (2-149) 07/19/21 11:27 Cholesterol 138 mg/dL (50-199) 07/19/21 11:27 LDL Cholesterol Direct 80 mg/dL (50-130) 07/19/21 11:27 HDL Cholesterol 33 mg/dL (40-59) L 07/19/21 11:27 Cholesterol/HDL Ratio 4.18 % 07/19/21 11:27 TSH 2.410 mlU/mL (0.270-4.200) 07/19/21 16:41 Free T4 1.22 ng/dL (0.76-1.46) 07/19/21 16:41 Urine Color Yellow (Yellow) 07/20/21 Unknown Urine Turbidity Slightly-cloudy (Clear) 07/20/21 Unknown Urine pH 5.0 (5.0-7.0) 07/20/21 Unknown Ur Specific [place] 1.016 (1.003-1.030) 07/20/21 Unknown Urine Protein 100 mg/dl mg/dL (Negative) 07/20/21 Unknown Urine Glucose (UA) 50 mg/dL (Negative) 07/20/21 Unknown Urine Ketones Neg mg/dL (Negative) 07/20/21 Unknown Urine Blood Neg (Negative) 07/20/21 Unknown Urine Nitrite Neg (Negative) 07/20/21 Unknown Urine Bilirubin Neg (Negative) 07/20/21 Unknown Urine Urobilinogen < 2.0 mg/dL (<2.0) 07/20/21 Unknown Ur Leukocyte Esterase Mod (Negative) 07/20/21 Unknown Urine WBC (Auto) 43.0 /HPF (0.0-6.0) H 07/20/21 Unknown Urine RBC (Auto) 30.0 /HPF (0.0-6.0) 07/20/21 Unknown U Epithel Cells (Auto) 21.0 /HPF (0-13.0) H 07/20/21 Unknown Urine Bacteria (Auto) 1+ /HPF (Negative) 07/20/21 Unknown Hyaline Casts 15 /LPF 07/20/21 Unknown WBC Casts 8 /LPF 07/20/21 Unknown Urine Mucus Few /HPF 07/20/21 Unknown Urine Creatinine 136.0 mg/dL (0.1-20.0) H 07/20/21 Unknown Protein/Creatinin Ratio 0.68 07/20/21 Unknown Urine Sodium 42 mmol/L 07/20/21 Unknown Urine Total Protein 92 mg/dL (5-11.8) H 07/20/21 Unknown Past History Past Medical History: diabetes, heart failure, hypertension, hyperlipidemia, renal failure, other (See HPI) Past Surgical History: Other (Right elbow surgery) Social history: single, smoking Family history: hypertension Medications and Allergies Allergies Allergy/AdvReac Type Severity Reaction Status Date / Time No Known Allergies Allergy Verified 07/19/21 10:06 Home Medications Medication Instructions Recorded Confirmed Last Taken Type Apixaban [Eliquis] 2.5 mg PO Q12HR #60 tablet 07/27/21 Unknown Rx Famotidine [Pepcid] 10 mg PO BID #60 tablet 07/27/21 Unknown Rx Furosemide [Lasix TAB] 40 mg PO QDAY #30 tablet 07/27/21 Unknown Rx Metoprolol Xl [Metoprolol 12.5 mg PO BID #60 tablet 07/27/21 Unknown Rx SUCCINATE ER TAB] Active Meds: Active Medications Acetaminophen (Acetaminophen 325 Mg Tab) 650 mg PO Q4H PRN PRN Reason: Pain MILD(1-3)/Fever >100.5/AVILA Last Admin: 07/24/21 10:01 Dose: 650 mg Documented by: Albuterol (Albuterol 2.5 Mg/3 Ml Nebu) 2.5 mg IH Q4H PRN PRN Reason: Shortness Of Breath Apixaban (Apixaban 2.5 Mg Tab) 2.5 mg PO Q12HR [facility]; Protocol Last Admin: 07/26/21 22:54 Dose: 2.5 mg Documented by: Famotidine (Famotidine 20 Mg Tab) 10 mg PO BID [facility] Last Admin: 07/26/21 22:54 Dose: 10 mg Documented by: Furosemide (Furosemide 20 Mg/2 Ml Inj) 20 mg IV 0600,1800 [facility] Last Admin: 07/27/21 05:40 Dose: Not Given Documented by: Hydromorphone HCl (Hydromorphone 1 Mg/1 Ml Inj) 0.5 mg IV Q3H PRN PRN Reason: Pain , Severe (7-10) Last Admin: 07/25/21 13:45 Dose: 0.5 mg Documented by: Metoprolol Succinate (Metoprolol Succinate Xl 25 Mg Tab) 12.5 mg PO BID [facility] Last Admin: 07/26/21 22:53 Dose: 12.5 mg Documented by: Ondansetron HCl (Ondansetron 4 Mg/2 Ml Inj) 4 mg IV Q8H PRN PRN Reason: Nausea And Vomiting Last Admin: 07/26/21 05:15 Dose: 4 mg Documented by: Oxycodone/Acetaminophen (Oxycodone /Acetaminophen 5-325mg Tab) 1 tab PO Q6H PRN PRN Reason: Pain, Moderate (4-6) Last Admin: 07/26/21 22:59 Dose: 1 tab Documented by: Sodium Chloride (Sodium Chloride 0.9% 10 Ml Flush Syringe) 10 ml IV BID [facility] Last Admin: 07/26/21 23:00 Dose: 10 ml Documented by: Sodium Chloride (Sodium Chloride 0.9% 10 Ml Flush Syringe) 10 ml IV PRN PRN PRN Reason: LINE FLUSH Exam - Constitutional Vitals: Last Vital Signs Temp 97.9 F 07/27/21 08:09 Pulse 52 L 07/27/21 08:09 Resp 18 07/27/21 08:09 BP 122/86 07/27/21 08:09 Pulse Ox 96 07/27/21 08:09 Results - Labs lab Results: Laboratory Results - last 24 hr 07/27/21 04:56 Sodium 138 Potassium 4.3 Chloride 100.0 Carbon Dioxide 21 L Anion Gap 21 BUN 53 H Creatinine 2.3 H Estimated GFR 28 BUN/Creatinine Ratio 23 Glucose 143 H Calcium 9.1
[2021-07-27] MEDS: METOPROLOL SUCCINATE XL 25 MG TAB PO SCH (11:32)
[2021-07-27] MEDS: FAMOTIDINE 20 MG TAB PO SCH (11:32)
[2021-07-27] MEDS: oxyCODONE /ACETAMINOPHEN 5-325MG TAB PO PRN (11:38)
[2021-07-27] MEDS: APIXABAN 2.5 MG TAB PO SCH (11:38)
[2021-07-27 12:05] LABS: Basophils # (Auto) 0.1 K/mm3 (0.0-0.1); Basophils % (Auto) 1.4 % (0.0-1.8); Eosinophils # (Auto) 0.1 K/mm3 (0.0-0.4); Eosinophils % (Auto) 1.2 % (0.0-4.3); Monocytes # (Auto) 0.6 K/mm3 (0.0-0.8); Red Blood Count 3.05 M/mm3 (3.65-5.03)
[2021-07-27 12:50] LABS: Hematocrit 34.5 % (35.5-45.6); Hemoglobin 11.6 gm/dl (11.8-15.2); Mean Corpuscular HGB Conc 34 % (32-34)
--- NOTE | 2021-07-27 13:08 | Discharge Summary ---
Providers - Providers Date of Admission: 07/19/21 15:03 Date of discharge: 07/27/21 Attending physician: MARTHA MAZA 07/19/21 15:05 Consult to Physician [CONS] Routine Comment: Consulting Provider: FRANDY EUCEDA Physician Instructions: Reason For Exam: concetta 07/19/21 15:13 Consult to Physician [CONS] Routine Comment: Consulting Provider: ILDA MAHAJAN Physician Instructions: Reason For Exam: CHF/Atrial Fib 07/22/21 09:25 Consult to Physician [CONS] Routine Comment: Consulting Provider: KELVIN BARRETT Physician Instructions: Reason For Exam: Fever of 101.7 07/27/21 07:49 Consult to Physician [CONS] Routine Comment: Consulting Provider: ZULMA COATS Physician Instructions: Reason For Exam: Thrombocytopenia. 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 Patient presented with shortness of breath and palpitation. Patient knowledges chest palpitations, shortness of breath, orthopnea, paroxysmal nocturnal dyspnea, decreased exercise tolerance, bilateral lower extremity edema. Patient denied medication noncompliance. The patient was seen and evaluated in the emergency depart ment.Patient with an EKG which revealed evidence of atrial fibrillation with rapid ventricular response. He was started on Cardizem, Eliquis and admitted. He was evaluated by cardiology, Nephrology. He had acute on CKD. Cardiology was planning to do cardiac cath after Cr improves, but after several days patient stated he wants to go home. Cardiology stated he can go home and follow as outpatient so was discharged home on 07/27/21. he had a prolonged course as detailed below. Acute on chronic systolic CHF exacerbation. Echo 07/19/2021-EF 15 to 20%, severe global hypokinesis of left ventricle, mild concentric left ventricular hypertrophy, mild aortic regurgitation, there is aortic stenosis unable to determine peak velocity due to A. fib, moderate tricuspid regurgitation, moderate pulmonary hypertension. Cannot be started on MILAGRO or ARB at this time due to acute kidney injury. Started on dobutamine on 07/23/2021 and beta-abilio held. Plan is to repeat limited echocardiogram left heart cath. Cardiology is managing. Atrial fibrillation was in RVR. Rate is currently controlled. Also on Eliquis. Acute kidney injury on CKD 3. No significant change in creatinine since admission. Nephrology is on board. Nicotine dependence. Obesity hypoventilation syndrome. Hypertension. Diabetes mellitus type 2. Elevated troponin. Lexiscan MPI stress test 07/21/2021-Technically difficult study, but probably normal without evidence of significant ischemia or prior infarction. No gating due to atrial fibrillation. Plan is for left heart cath. Fever. Possible UTI with mild pyuria though sample was definitely contaminated with epithelial cells cells. ID recommended 5 days of antibiotic. 07/20/2021. BNP elevated on admission at 18,662. Troponin is also elevated 0.69 and 0.067 respectively. Chest x-ray revealed bilateral right greater than left pleural effusions with bibasilar opacities. Follow-up echocardiogram to assess systolic/diastolic function. Await cardiology recommendations. Continue diuresis per cardiology. Amiodarone discontinued. Continue diltiazem 30 mg p.o. 6 hours for rate control. Continue anticoagulation with Eliquis 2.5 mg twice daily. Follow-up urine studies and renal ultrasound per nephrology recommendations. Renal prognosis is guarded. 07/21/2021 Patient with afib with RVR, Acute on chronic systolic CHF, EF 15-20%. CXR with bilateral pleural effusions, bibasilar opacities. Will repeat in am. Also has UTI. Now has fever. Start Ceftriaxone. Obtain blood cultures. 07/22/2021 Patient with afib with RVR, Acute on chronic systolic CHF, EF 15-20%. CXR with bilateral pleural effusions, bibasilar opacities. Yesterday had fever of 101.7 . Also has UTI. Started Ceftriaxone for UTI. Obtained blood cultures. Consulted ID to see. Cardiology planning on cardiac cath when Creatinine normalizes. 07/23/2021. Cardiology still has plan for cardiac cath based on renal function. ID recommended 5 days of ceftriaxone on if discharging will go with omnicef 300mg q12h 07/24/2021. Patient was started on dobutamine drip yesterday, Lasix 20 mg IV twice daily and beta-abilio discontinued. Recommend resumption of gentle IV diuresis. Plan by cardiology is also to repeat limited echo on dobutamine today to re-assess AV and LHC when renal fxn has stabilized and pt's volume status is adequately optimized. 07/25/2021 Patient with afib with RVR, Acute on chronic systolic CHF, EF 15-20%. Treated with Dobutamine drip. Cardiology wants to do cardiac cath when renally cleared. nausea and vomiting today. Zofran iv prn. 07/26/2021 Patient with afib with RVR, Acute on chronic systolic CHF, EF 15- 20%. Cardiology to do cath when cleared by nephrology. CONCETTA on CKD improving Cr 2.7 today. 07/27/21 Patient stated he wants to go home and cardiology recommended he can be discharged home to follow as outpatient Disposition: 06 HOME HEALTH CARE SERVICE Final Discharge Diagnosis (Prints w/discharge instructions): 1.Acute on chronic systolic CHF. 2.Acute on chronic kidney disease. 3.Rapid atrial fibrillation. 4.Thrombocytopenia Time spent for discharge: 45 mins - Discharge Diagnoses (1) Acute kidney injury (CONCETTA) with acute tubular necrosis (ATN) Status: Acute (2) Acute kidney injury superimposed on CKD Status: Acute (3) Acute on chronic HFrEF (heart failure with reduced ejection fraction) Status: Acute (4) Atrial fibrillation with RVR Status: Acute (5) Chest pain Status: Acute (6) Permanent atrial fibrillation Status: Acute (7) Severe aortic stenosis Status: Acute (8) Thrombocytopenia Status: Acute Core Measure Documentation - Palliative Care Palliative Care/ Comfort Measures: Not Applicable - Core Measures Any of the following diagnoses?: heart failure - Heart Failure Discharge Requirements MILAGRO/ARB for LVSD if EF <40%: No Reason for no MILAGRO/ARB: Renal impairment Beta abilio at discharge: Yes Exam - Constitutional Vitals: Temp Pulse Resp BP Pulse Ox 97.9 F 93 H 18 122/86 96 07/27/21 08:09 07/27/21 11:32 07/27/21 08:09 07/27/21 08:09 07/27/21 10:00 Plan Activity: other (No strenous activity until cleared by Cardiology) Diet: low fat, low cholesterol, low salt, renal Plan of Treatment: 1.Follow up with PCP in 1 week. 2.Follow up with Dr. Ceron, Cardiology on 08/10/21 3.Follow up with Dr. Euceda, Nephrology in 1 week 4.Follow up with Dr. Castellanos, Genetic Physician in 1 week Follow up with: PRIMARY CARE, [Primary Care Provider] - 3-5 Days Prescriptions: Apixaban [Eliquis] 2.5 mg PO Q12HR #60 tablet Furosemide [Lasix TAB] 40 mg PO QDAY #30 tablet Metoprolol Xl [Metoprolol SUCCINATE ER TAB] 12.5 mg PO BID #60 tablet Famotidine [Pepcid] 10 mg PO BID #60 tablet
--- NOTE | 2021-07-27 13:14 | Event Note ---
Date: 07/27/21 Patient wants to go home and does not want to do Cardiac cath now. I discussed with Dr. Ceron and re recommends patient can be discharged home with outpatient follow up.
[2021-07-27 14:09] LABS: Mean Corpuscular Volume 113 fl (84-94); Platelet Count 68 K/mm3 (140-440); Red Cell Distribution Width 20.6 % (13.2-15.2)
--- NOTE | 2021-07-27 14:15 | Progress Note ---
Assessment and Plan 1. Acute kidney injury: CONCETTA superimposed on CKD-3 in the setting of decompensated CHF. Renal US negative. Monitor renal function. Creatinine level improving. Avoid nephrotoxic agents. Meds dosage based on GFR. 2. FEN: Mild metabolic acidosis, monitor. Volume overload, diuretics as BP allows. Monitor lytes and volume status. 3. A.fib with RVR: On Eliquis. Monitor. 4. Decompensated CHF / Elevated troponin, POA: Followed by Cards. Monitor. 5. DM-2. 6. HTN. 7. Tobacco use: Counseled. F/u with me in 1-2 weeks. Subjective: Patient was seen and examined at the bedside. Examination: General appearance: obese, well-developed, appears stated age, not in distress HEENT: atraumatic Neck: trachea midline Respiratory: diminished breath sounds Heart: S1S2, irregular, no murmur Abdomen: soft, obese, bowel sounds heard, Integumentary: LE discoloration, extensive erythema noted Neurologic: AO, able to move extremities Ext: 1+ LE edema Subjective Date of service: 07/27/21 Principal diagnosis: Acute on chronic HFrEF Objective - Vital Signs Vital signs: Vital Signs - 12hr 07/27/21 07/27/21 07/27/21 04:00 05:56 08:00 Temperature 97.9 F Pulse Rate 90 89 Respiratory 16 Rate Respiratory 17 Rate [BLE] Respiratory 18 Rate [chest] Blood Pressure 117/78 O2 Sat by Pulse 97 Oximetry 07/27/21 07/27/21 07/27/21 08:09 10:00 11:32 Temperature 97.9 F Pulse Rate 52 L 103 H 93 H Respiratory 18 Rate Respiratory Rate [BLE] Respiratory Rate [chest] Blood Pressure 122/86 O2 Sat by Pulse 96 96 Oximetry - Lab 07/27/21 11:02 07/27/21 04:56 Most recent lab results Calcium 9.1 mg/dL (8.4-10.2) 07/27/21 04:56 Magnesium 2.40 mg/dL (1.7-2.3) H 07/19/21 16:41 Urine Creatinine 136.0 mg/dL (0.1-20.0) H 07/20/21 Unknown Urine Sodium 42 mmol/L 07/20/21 Unknown Urine Total Protein 92 mg/dL (5-11.8) H 07/20/21 Unknown Medications & Allergies - Medications Allergies/Adverse Reactions: Allergies No Known Allergies Allergy (Verified 07/19/21 10:06) Home Medications: Home Medications Medication Instructions Recorded Confirmed Last Taken Type Apixaban [Eliquis] 2.5 mg PO Q12HR #60 tablet 07/27/21 Unknown Rx Famotidine [Pepcid] 10 mg PO BID #60 tablet 07/27/21 Unknown Rx Furosemide [Lasix TAB] 40 mg PO QDAY #30 tablet 07/27/21 Unknown Rx Metoprolol Xl [Metoprolol 12.5 mg PO BID #60 tablet 07/27/21 Unknown Rx SUCCINATE ER TAB] Active Medications: Generic Name Dose Route Start Last Admin Trade Name Freq PRN Reason Stop Dose Admin Acetaminophen 650 mg 07/19/21 15:03 07/24/21 10:01 Acetaminophen 325 Mg Tab PO 650 mg Q4H PRN Administration Pain MILD(1-3)/Fever >100.5/AVILA Albuterol 2.5 mg 07/19/21 15:03 Albuterol 2.5 Mg/3 Ml Nebu IH Q4H PRN Shortness Of Breath Apixaban 2.5 mg 07/19/21 22:00 07/27/21 11:38 Apixaban 2.5 Mg Tab PO 2.5 mg Q12HR RIC Administration Protocol Famotidine 10 mg 07/20/21 22:00 07/27/21 11:32 Famotidine 20 Mg Tab PO 10 mg BID RIC Administration Furosemide 40 mg 07/28/21 10:00 Furosemide 40 Mg Tab PO QDAY RIC Hydromorphone HCl 0.5 mg 07/24/21 14:00 07/25/21 13:45 Hydromorphone 1 Mg/1 Ml Inj IV 0.5 mg Q3H PRN Administration Pain , Severe (7-10) Metoprolol Succinate 12.5 mg 07/25/21 22:00 07/27/21 11:32 Metoprolol Succinate Xl 25 Mg Tab PO 12.5 mg BID RIC Administration Ondansetron HCl 4 mg 07/19/21 15:03 07/26/21 05:15 Ondansetron 4 Mg/2 Ml Inj IV 4 mg Q8H PRN Administration Nausea And Vomiting Oxycodone/Acetaminophen 1 tab 07/24/21 14:00 07/27/21 11:38 Oxycodone /Acetaminophen 5-325mg Tab PO 1 tab Q6H PRN Administration Pain, Moderate (4-6) Sodium Chloride 10 ml 07/19/21 22:00 07/26/21 23:00 Sodium Chloride 0.9% 10 Ml Flush Syringe IV 10 ml BID RIC Administration Sodium Chloride 10 ml 07/19/21 15:03 Sodium Chloride 0.9% 10 Ml Flush Syringe IV PRN PRN LINE FLUSH
[2021-07-28] MEDS ORDERED: FUROSEMIDE 40 MG TAB PO SCH (10:00)
[2021-07-30 17:17] LABS: Heparin-Induced Platelet Antib Negative (Negative); Unfractionated Heparin Negative (Negative)
== END 2021-07-27 17:55 | disposition home health service (06) | DRG 682 ==
LOC: ED 10:04 → 4A 15:03
PROVIDERS: ADMIT Internal Medicine; ATTEND Internal Medicine
DX: N17.0 Acute kidney failure with tubular necrosis (principal); I50.23 Acute on chronic systolic (congestive) heart failure; I13.0 Hypertensive heart and chronic kidney disease with heart failure and stage 1 through stage 4 chronic kidney disease, or unspecified chronic kidney disease; I48.20 Chronic atrial fibrillation, unspecified; F17.213 Nicotine dependence, cigarettes, with withdrawal; E66.2 Morbid (severe) obesity with alveolar hypoventilation; E87.2 Acidosis; N39.0 Urinary tract infection, site not specified; I42.9 Cardiomyopathy, unspecified; Z68.35 Body mass index [BMI] 35.0-35.9, adult; N18.30 Chronic kidney disease, stage 3 unspecified; I25.2 Old myocardial infarction; Z82.49 Family history of ischemic heart disease and other diseases of the circulatory system; E78.5 Hyperlipidemia, unspecified; E11.22 Type 2 diabetes mellitus with diabetic chronic kidney disease; R77.8 Other specified abnormalities of plasma proteins; Z71.6 Tobacco abuse counseling; I35.0 Nonrheumatic aortic (valve) stenosis; D69.6 Thrombocytopenia, unspecified
CPT/HCPCS: 36415; 71045; 71046; 76770; 78452; 80048; 80053; 80061; 81001; 82550; 82565; 82570; 82962; 83735; 83880; 84156; 84300; 84439; 84443; 84484; 85025; 85027; 85610; 85730; 86022; 87040; 87086; 93005; 93017; 93306; 93308; 93321; 93325; 94760; 96374; G0378; A9502; J0282; J0696; J1170; J1250; J1940; J2405; J2785; J3010; J7060

== ENCOUNTER 2021-08-20 20:45 | Emergency (ER) | payer MEDICARE ==
[2021-08-20 21:39] LABS: Basophils # (Auto) 0.1 K/mm3 (0.0-0.1); Basophils % (Auto) 0.8 % (0.0-1.8); Eosinophils % (Auto) 0.1 % (0.0-4.3); Hemoglobin 11.1 gm/dl (11.8-15.2); Lymphocytes % (Auto) 11.1 % (13.4-35.0); Mean Corpuscular HGB Conc 34 % (32-34); Mean Corpuscular Volume 109 fl (84-94); Monocytes % (Auto) 10.7 % (0.0-7.3); Platelet Count 128 K/mm3 (140-440); Red Blood Count 3.04 M/mm3 (3.65-5.03); Red Cell Distribution Width 18.9 % (13.2-15.2)
--- NOTE | 2021-08-20 21:45 | Emergency Department Report ---
HPI - General Chief Complaint: Back Pain/Injury Time Seen by Provider: 08/20/21 21:39 - HPI HPI: 71-year-old male presents to the emergency department with a complaint of "the same thing as last time." The patient was seen here on 07/19 and was admitted for about 1 week after being diagnosed with CHF, OR, and atrial fibrillation with RVR. He was also found to have acute renal failure at that time. The patient says that he has been having a couple days of nausea with vomiting and has been unable to keep down all of his medications. He also complains of a wound to the right heel that "will not heal." He denies any chest pain, fever, but does complain of a mixed dry and productive cough and shortness of breath. No recent travel or sick contacts at home. Per the patient last admission he had a stress test that did not show any evidence of ischemic changes and he had an echocardiogram that showed severe aortic stenosis. ED Past Medical Hx - Past Medical History Previous Medical History?: Yes Hx Congestive Heart Failure: Yes Hx Diabetes: Yes Hx Renal Disease: Yes Hx Asthma: No Hx COPD: No Additional medical history: COVID 05/2021 - Surgical History Past Surgical History?: Yes Additional Surgical History: right elbow sx - Social History Smoking Status: Current Every Day Smoker - Medications Home Medications: Home Medications Medication Instructions Recorded Confirmed Last Taken Type Apixaban [Eliquis] 2.5 mg PO Q12HR #60 tablet 07/27/21 Unknown Rx Famotidine [Pepcid] 10 mg PO BID #60 tablet 07/27/21 Unknown Rx Furosemide [Lasix TAB] 40 mg PO QDAY #30 tablet 07/27/21 Unknown Rx Metoprolol Xl [Metoprolol 12.5 mg PO BID #60 tablet 07/27/21 Unknown Rx SUCCINATE ER TAB] ED Review of Systems ROS: Stated complaint: HULCINATION,VOMITING,BLEEDING BOTTOM OF RT FOOT Other details as noted in HPI Comment: All other systems reviewed and negative Constitutional: weakness. denies: chills, fever Eyes: denies: eye pain, vision change ENT: denies: ear pain, throat pain Respiratory: cough, shortness of breath Cardiovascular: edema. denies: chest pain, palpitations Gastrointestinal: nausea, vomiting. denies: abdominal pain Genitourinary: denies: dysuria, discharge Musculoskeletal: denies: back pain, joint swelling Skin: other (Right heel wound). denies: rash Neurological: denies: headache, numbness Physical Exam - Physical Exam Vital Signs: Vital Signs 08/20/21 20:57 Temperature 97.3 F L Pulse Rate 69 Respiratory 18 Rate Blood Pressure 131/71 O2 Sat by Pulse 98 Oximetry Physical Exam: GENERAL: The patient is well-developed well-nourished. HENT: Normocephalic. Atraumatic. Patient has moist mucous membranes. EYES: Extraocular motions are intact. NECK: Supple. Trachea is midline. CHEST/LUNGS: Clear to auscultation. There is no respiratory distress noted. HEART/CARDIOVASCULAR: Irregular rhythm. There is no tachycardia. ABDOMEN: Abdomen is soft, nontender. Patient has normal bowel sounds. There is no abdominal distention. SKIN: Skin is warm and dry. 1+ pitting edema to the bilateral lower extremities. Patient has a small ulcerating wound to the plantar midfoot and posterior right heel. NEURO: The patient is awake, alert, and oriented. The patient is cooperative. The patient has no focal neurologic deficits. Normal speech. MUSCULOSKELETAL: There is no tenderness or deformity. There is no limitation range of motion. ED Course Vital Signs 08/20/21 20:57 Temperature 97.3 F L Pulse Rate 69 Respiratory 18 Rate Blood Pressure 131/71 O2 Sat by Pulse 98 Oximetry ED Medical Decision Making - Lab Data Result diagrams: 08/20/21 21:22 08/20/21 21:22 Lab Results 08/20/21 08/20/21 08/20/21 Range/Units 21:22 21:22 21:48 WBC 9.2 (4.5-11.0) K/mm3 RBC 3.04 L (3.65-5.03) M/mm3 Hgb 11.1 L (11.8-15.2) gm/dl Hct 33.0 L (35.5-45.6) % MCV 109 H (84-94) fl MCH 36 H (28-32) pg MCHC 34 (32-34) % RDW 18.9 H (13.2-15.2) % Plt Count 128 L (140-440) K/mm3 Lymph % (Auto) 11.1 L (13.4-35.0) % [place] % (Auto) 10.7 H (0.0-7.3) % Eos % (Auto) 0.1 (0.0-4.3) % Baso % (Auto) 0.8 (0.0-1.8) % Lymph # (Auto) 1.0 L (1.2-5.4) K/mm3 [place] # (Auto) 1.0 H (0.0-0.8) K/mm3 Eos # (Auto) 0.0 (0.0-0.4) K/mm3 Baso # (Auto) 0.1 (0.0-0.1) K/mm3 Seg Neutrophils % 77.3 H (40.0-70.0) % Seg Neutrophils # 7.1 (1.8-7.7) K/mm3 Sodium 143 (137-145) mmol/L Potassium 3.0 L (3.6-5.0) mmol/L Chloride 87.3 L (98-107) mmol/L Carbon Dioxide 39 H (22-30) mmol/L Anion Gap 20 mmol/L BUN 37 H (9-20) mg/dL Creatinine 2.4 H (0.8-1.3) mg/dL Estimated GFR 27 ml/min BUN/Creatinine Ratio 15 % Glucose 193 H (75-100) mg/dL Calcium 9.5 (8.4-10.2) mg/dL Total Bilirubin 2.10 H (0.1-1.2) mg/dL AST 84 H (5-40) units/L ALT 62 H (7-56) units/L Alkaline Phosphatase 138 H (35-129) units/L Troponin T 0.035 H (0.00-0.029) ng/mL NT-Pro-B Natriuret Pep 50360 H (0-900) pg/mL Total Protein 7.2 (6.3-8.2) g/dL Albumin 4.0 (3.9-5) g/dL Albumin/Globulin Ratio 1.3 % Triglycerides 122 (2-149) mg/dL Cholesterol 141 (50-199) mg/dL LDL Cholesterol Direct 85 (50-130) mg/dL HDL Cholesterol 28 L (40-59) mg/dL Cholesterol/HDL Ratio 5.03 % - EKG Data -: EKG Interpreted by Me - EKG Data When compared to previous EKG there are: no significant change (Other than previous EKG showed RVR) Interpretation: other (Atrial fibrillation with a rate of 73, normal axis, pro longed QTC, left bundle branch block. No ST elevation OR) - Radiology Data Radiology results: report reviewed RIGHT FOOT 2 VIEW(S) INDICATION / CLINICAL INFORMATION: stasis ulcer COMPARISON: None available. FINDINGS: BONES / JOINT(S): No acute fracture or subluxation. No significant arthritis. SOFT TISSUES: No significant abnormality. ADDITIONAL FINDINGS: None. CHEST 1 VIEW 08/20/2021 8:53 PM INDICATION / CLINICAL INFORMATION: sob. COMPARISON: 07/22/2021 FINDINGS: SUPPORT DEVICES: None. HEART / MEDIASTINUM: No significant abnormality. LUNGS / PLEURA: Redemonstrated right basilar opacity and pleural effusion. No pneumothorax. ADDITIONAL FINDINGS: No significant additional findings. IMPRESSION: 1. Redemonstrated not significantly changed right basilar opacity and pleural effusion. - Medical Decision Making This patient presents to the emergency department with complaint of nausea and vomiting, and some shortness of breath. He also has concerns about a wound to the right foot that is not healing. Patient does appear to have 2 small ulcerating wounds to the right foot at the plantar midfoot and posterior right heel. No bleeding, surrounding erythema, rash. An x-ray was done of the right foot that does not show any fracture, subcutaneous gas or signs of osteomyelitis. Chest x-ray does not show any pneumonia, widened mediastinum, pneumothorax, or any other acute process. Patient's labs shows mild thrombocytopenia, renal insufficiency with a GFR of 27 that is consistent with his previous visit, a slightly elevated troponin at 0.035, elevated total bilirubin and LFTs. EKG shows atrial fibrillation but otherwise no morphology consistent with ST elevation myocardial infarction. The patient had a stress test and echocardiogram during his last visit a month ago that did not show any evidence of ischemic changes or coronary artery disease. Therefore I am not concerned about the slightly elevated troponin level. I ordered for the patient to have an ultrasound of the abdomen to look into the elevated bilirubin and LFTs, which is new from his previous visit. It may be secondary to the patient's recent nausea vomiting. However, multiple times during his ED course, the patient is telling me that he does not want to be admitted to the hospital, does not want any further evaluation, and is ready to go home. I explained to the patient that I was waiting for a urinalysis and the ultrasound to be done. The patient is not willing to remain in the emergency department for any further evaluation. I explained that leaving at this time could lead to undiagnosed liver or biliary abnormalities, return of his nausea with vomiting, worsening of his symptoms. The patient is awake, alert, oriented, AAO x3, and has a normal decision-making capacity. Therefore, despite understanding the risk the patient has signed out AGAINST MEDICAL ADVICE. Despite this, the patient understands that he can return to the emergency department immediately if he changes his mind about further evaluation or with any acute distress. The patient has also been given outpatient referral for podiatry and wound care for his foot wound, and [facility] to follow-up regarding the elevated bilirubin and LFTs. Critical Care Time: No Critical care attestation.: If time is entered above; I have spent that time in minutes in the direct care of this critically ill patient, excluding procedure time. ED Disposition Clinical Impression: Elevated liver enzymes, Elevated bilirubin CKD (chronic kidney disease) Qualifiers: Chronic kidney disease stage: unspecified stage Qualified Code(s): N18.9 - Chronic kidney disease, unspecified Atrial fibrillation Qualifiers: Atrial fibrillation type: permanent Qualified Code(s): I48.21 - Permanent atrial fibrillation Foot ulcer Qualifiers: Laterality: right Non-pressure ulcer stage: unspecified non-pressure ulcer stage Qualified Code(s): L97.519 - Non-pressure chronic ulcer of other part of right foot with unspecified severity Nausea & vomiting Qualifiers: Vomiting type: unspecified Vomiting Intractability: non-intractable Qualified Code(s): R11.2 - Nausea with vomiting, unspecified Disposition: 07 LEFT AGAINST MEDICAL ADVICE Is pt being admited?: No Condition: Stable Instructions: Nausea and Vomiting, Adult, Pressure Injury, Chronic Kidney Disease, Adult, Atrial Fibrillation Additional Instructions: Please return to the emergency department if you change your mind about further evaluation, or with any acute distress. I am giving you a referral for [facility] to follow-up regarding your elevated liver enzymes and bilirubin levels seen on your labs today. I am giving you a referral for a local instructional consultant, Dr. Kirk, as well as a local wound care clinic to follow-up regarding your foot wound. Referrals: [facility] [Provider Group] - 3-5 Days [facility] [Outside] - 3-5 Days VIVI KIRK DPM [Staff Physician] - 3-5 Days Forms: AMA Form
[2021-08-20 22:00] LABS: Calcium 9.5 mg/dL (8.4-10.2)
[2021-08-20] MEDS ORDERED: METOCLOPRAMIDE 10 MG/2 ML INJ IV ONE (22:03)
--- NOTE | 2021-08-20 22:03 | XRay Report ---
RIGHT FOOT 2 VIEW(S) INDICATION / CLINICAL INFORMATION: stasis ulcer COMPARISON: None available. FINDINGS: BONES / JOINT(S): No acute fracture or subluxation. No significant arthritis. SOFT TISSUES: No significant abnormality. ADDITIONAL FINDINGS: None. Signer Name: Rob Alonso DO Signed: 08/20/2021 9:59 PM Workstation Name: [id number]
--- NOTE | 2021-08-20 22:04 | XRay Report ---
CHEST 1 VIEW 08/20/2021 8:53 PM INDICATION / CLINICAL INFORMATION: sob. COMPARISON: 07/22/2021 FINDINGS: SUPPORT DEVICES: None. HEART / MEDIASTINUM: No significant abnormality. LUNGS / PLEURA: Redemonstrated right basilar opacity and pleural effusion. No pneumothorax. ADDITIONAL FINDINGS: No significant additional findings. IMPRESSION: 1. Redemonstrated not significantly changed right basilar opacity and pleural effusion. Signer Name: Rob Alonso DO Signed: 08/20/2021 10:00 PM Workstation Name: [id number]
[2021-08-20] MEDS ORDERED: POTASSIUM CHLORIDE ER 20 MEQ TAB PO ONE (22:09)
[2021-08-20 22:12] LABS: Chol/HDL Ratio 5.03 %
[2021-08-20 23:44] VITALS: BP 134/85
--- NOTE | 2021-08-21 09:33 | Electrocardiograph Report ---
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
== END 2021-08-20 23:45 | disposition left against medical advice (07) ==
LOC: ED 20:45
DX: I48.91 Unspecified atrial fibrillation (principal); R74.01 Elevation of levels of liver transaminase levels; N18.9 Chronic kidney disease, unspecified; L97.519 Non-pressure chronic ulcer of other part of right foot with unspecified severity; R11.2 Nausea with vomiting, unspecified; E11.8 Type 2 diabetes mellitus with unspecified complications; Z98.890 Other specified postprocedural states; F17.200 Nicotine dependence, unspecified, uncomplicated
CPT/HCPCS: 36415; 71045; 73620; 80053; 80061; 83880; 84484; 85025; 93005; 96374; 99284; J2765

== ENCOUNTER 2021-09-30 12:26 | Emergency (ER) | payer MEDICARE ==
[2021-09-30] MEDS ORDERED: ONDANSETRON 4 MG/2 ML INJ IV ONE ×2 (12:52→17:37)
[2021-09-30] MEDS ORDERED: SODIUM CHLORIDE 0.9% 1000 ML 1,000 ML IV ONE (12:52)
[2021-09-30] MEDS ORDERED: FAMOTIDINE 20 MG/2 ML INJ IV ONE (12:52)
[2021-09-30] MEDS ORDERED: MORPHINE 2 MG/1 ML INJ IV ONE (12:52)
[2021-09-30 14:22] LABS: Hematocrit 29.9 % (35.5-45.6); Hemoglobin 9.6 gm/dl (11.8-15.2); Mean Corpuscular HGB Conc 32 % (32-34); Mean Corpuscular Volume 120 fl (84-94); Platelet Count 173 K/mm3 (140-440); Red Blood Count 2.49 M/mm3 (3.65-5.03); Red Cell Distribution Width 18.6 % (13.2-15.2)
[2021-09-30 14:48] LABS: Albumin 3.4 g/dL (3.9-5); Calcium 9.2 mg/dL (8.4-10.2)
[2021-09-30] MEDS ORDERED: POTASSIUM CHLORIDE ER 20 MEQ TAB PO ONE (14:56)
[2021-09-30] MEDS ORDERED: POTASSIUM CHLORIDE 10 MEQ 10 MEQ/100 ML BAG IV ONE (14:56)
--- NOTE | 2021-09-30 16:55 | Cat Scan Report ---
CT ABDOMEN AND PELVIS WITHOUT CONTRAST HISTORY: Abdominal pain, nausea, vomiting COMPARISON: None TECHNIQUE: Routine abdominal and pelvic CT exam performed without contrast. Lack of intravenous cont rast limits evaluation of the vascular and solid organs.. All CT scans at this location are performed using CT dose reduction for ALARA by means of automated exposure control. FINDINGS: CT ABDOMEN: Lung Bases: Small bilateral pleural effusions. Liver: No significant abnormality. Biliary: Gallstone in the gallbladder without evidence of cholecystitis. Spleen: No significant abnormality. Unenlarged. Pancreas: No significant abnormality. Adrenals: No significant abnormality. Kidneys: Multiple large cysts in the right kidney without acute abnormality. Lymphatics: No significant abnormality Vasculature: Atherosclerotic but nonaneurysmal abdominal aorta. Bowel/Peritoneum: No significant abnormality. No free air. No free fluid. CT PELVIC: : No significant abnormality. Lymphatics: No lymphadenopathy. Osseous Structures: No aggressive appearing osseous lesions. Additional Findings: None IMPRESSION: 1. No definite acute findings. 2. Cholelithiasis without evidence of acute cholecystitis. 3. Small bilateral pleural effusions. Signer Name: Boone Teixeira MD Signed: 09/30/2021 4:50 PM Workstation Name: [id number]
--- NOTE | 2021-09-30 17:41 | Emergency Department Report ---
ED Abdominal Pain HPI - General Chief Complaint: Abdominal Pain Stated Complaint: VOMITTING FOR OVER MONTH Time Seen by Provider: 09/30/21 12:45 Source: patient Mode of arrival: Wheelchair Limitations: No Limitations - History of Present Illness Initial Comments: Patient is a 71-year-old male who is presenting with nausea vomiting for the past 1 month. Patient states that he has upper abdominal discomfort daily. States his unchanged by any activity in particular. Patient states he is vomiting almost daily as well. Very mild loose stools. No blood in his vomit or or stool. Denies fevers chills cough cold or congestion. Severity scale (0 -10): 5 - Related Data Previous Rx's Medication Instructions Recorded Last Taken Type Apixaban [Eliquis] 2.5 mg PO Q12HR #60 tablet 08/26/21 Unknown Rx Aspirin EC [Ecotrin] 325 mg PO QDAY #30 tablet 08/26/21 Unknown Rx AtorvaSTATin [Lipitor] 40 mg PO QHS #30 tablet 08/26/21 Unknown Rx Famotidine [Pepcid] 10 mg PO BID #60 tablet 08/26/21 Unknown Rx Furosemide [Lasix TAB] 40 mg PO BID #60 tablet 08/26/21 Unknown Rx Metoprolol Xl [Metoprolol 12.5 mg PO BID #60 tablet 08/26/21 Unknown Rx SUCCINATE ER TAB] Potassium Chloride [K-Dur] 20 meq PO BID #60 tablet 08/26/21 Unknown Rx Ondansetron [Zofran Odt] 4 mg PO Q8HR #10 tab.rapdis 09/30/21 Unknown Rx traMADoL [Ultram] 50 mg PO Q6HR PRN #20 tablet 09/30/21 Unknown Rx Allergies Allergy/AdvReac Type Severity Reaction Status Date / Time No Known Allergies Allergy Verified 09/30/21 12:33 ED Review of Systems ROS: Stated complaint: VOMITTING FOR OVER MONTH Other details as noted in HPI Comment: All other systems reviewed and negative ED Past Medical Hx - Past Medical History Previous Medical History?: Yes Hx Congestive Heart Failure: Yes Hx Diabetes: Yes Hx Renal Disease: Yes Hx Asthma: No Hx COPD: No Additional medical history: COVID 05/2021. Atrial fibrillation - Surgical History Past Surgical History?: Yes Additional Surgical History: right elbow sx - Social History Smoking Status: Current Every Day Smoker Substance Use Type: Alcohol - Medications Home Medications: Home Medications Medication Instructions Recorded Confirmed Last Taken Type Apixaban [Eliquis] 2.5 mg PO Q12HR #60 tablet 08/26/21 Unknown Rx Aspirin EC [Ecotrin] 325 mg PO QDAY #30 tablet 08/26/21 Unknown Rx AtorvaSTATin [Lipitor] 40 mg PO QHS #30 tablet 08/26/21 Unknown Rx Famotidine [Pepcid] 10 mg PO BID #60 tablet 08/26/21 Unknown Rx Furosemide [Lasix TAB] 40 mg PO BID #60 tablet 08/26/21 Unknown Rx Metoprolol Xl [Metoprolol 12.5 mg PO BID #60 tablet 08/26/21 Unknown Rx SUCCINATE ER TAB] Potassium Chloride [K-Dur] 20 meq PO BID #60 tablet 08/26/21 Unknown Rx Ondansetron [Zofran Odt] 4 mg PO Q8HR #10 tab.rapdis 09/30/21 Unknown Rx traMADoL [Ultram] 50 mg PO Q6HR PRN #20 tablet 09/30/21 Unknown Rx ED Physical Exam - General Limitations: No Limitations General appearance: alert, in no apparent distress - Head Head exam: Present: atraumatic, normocephalic - Eye Eye exam: Present: normal appearance, PERRL, EOMI - ENT ENT exam: Present: mucous membranes moist - Neck Neck exam: Present: normal inspection - Respiratory Respiratory exam: Present: normal lung sounds bilaterally. Absent: respiratory distress, wheezes, rales, rhonchi - Cardiovascular Cardiovascular Exam: Present: regular rate, normal rhythm, normal heart sounds. Absent: systolic murmur, diastolic murmur, rubs, gallop - GI/Abdominal GI/Abdominal exam: Present: soft, tenderness, normal bowel sounds. Absent: distended, guarding, rebound, rigid - Rectal Rectal exam: Present: deferred - Extremities Exam Extremities exam: Present: normal inspection - Back Exam Back exam: Present: normal inspection - Neurological Exam Neurological exam: Present: alert, oriented X3 - Psychiatric Psychiatric exam: Present: normal affect, normal mood - Skin Skin exam: Present: warm, dry, intact, normal color. Absent: rash ED Course Vital Signs 09/30/21 09/30/21 09/30/21 12:32 16:16 16:25 Temperature 98.6 F Pulse Rate 108 H 80 Respiratory 14 16 Rate Blood Pressure 116/74 140/85 [Left] O2 Sat by Pulse 100 95 94 Oximetry ED Medical Decision Making - Lab Data Result diagrams: 09/30/21 13:36 09/30/21 13:36 Lab Results 09/30/21 09/30/21 Range/Units 13:36 13:36 WBC 5.5 (4.5-11.0) K/mm3 RBC 2.49 L (3.65-5.03) M/mm3 Hgb 9.6 L (11.8-15.2) gm/dl Hct 29.9 L (35.5-45.6) % MCV 120 H (84-94) fl MCH 39 H (28-32) pg MCHC 32 (32-34) % RDW 18.6 H (13.2-15.2) % Plt Count 173 (140-440) K/mm3 Lymph % (Auto) Certified Nutritionist [place] % (Auto) Certified Nutritionist Eos % (Auto) Certified Nutritionist Baso % (Auto) Certified Nutritionist Lymph # (Auto) Certified Nutritionist [place] # (Auto) Certified Nutritionist Eos # (Auto) Certified Nutritionist Baso # (Auto) Certified Nutritionist Seg Neutrophils % Certified Nutritionist Seg Neutrophils # Certified Nutritionist Sodium 134 L (137-145) mmol/L Potassium 3.0 L (3.6-5.0) mmol/L Chloride 92.3 L (98-107) mmol/L Carbon Dioxide 28 (22-30) mmol/L Anion Gap 17 mmol/L BUN 23 H (9-20) mg/dL Creatinine 1.7 H (0.8-1.3) mg/dL Estimated GFR 40 ml/min BUN/Creatinine Ratio 14 % Glucose 146 H (75-100) mg/dL Calcium 9.2 (8.4-10.2) mg/dL Total Bilirubin 1.40 H (0.1-1.2) mg/dL AST 13 (5-40) units/L ALT 7 (7-56) units/L Alkaline Phosphatase 122 (35-129) units/L Total Protein 7.4 (6.3-8.2) g/dL Albumin 3.4 L (3.9-5) g/dL Albumin/Globulin Ratio 0.9 % Lipase 10 L (13-60) units/L - Radiology Data CT ABDOMEN AND PELVIS WITHOUT CONTRAST HISTORY: Abdominal pain, nausea, vomiting COMPARISON: None TECHNIQUE: Routine abdominal and pelvic CT exam performed without contrast. Lack of intravenous contrast limits evaluation of the vascular and solid organs.. All CT scans at this location are performed using CT dose reduction for ALARA by means of automated exposure c ontrol. FINDINGS: CT ABDOMEN: Lung Bases: Small bilateral pleural effusions. Liver: No significant abnormality. Biliary: Gallstone in the gallbladder without evidence of cholecystitis. Spleen: No significant abnormality. Unenlarged. Pancreas: No significant abnormality. Adrenals: No significant abnormality. Kidneys: Multiple large cysts in the right kidney without acute abnormality. Lymphatics: No significant abnormality Vasculature: Atherosclerotic but nonaneurysmal abdominal aorta. Bowel/Peritoneum: No significant abnormality. No free air. No free fluid. CT PELVIC: : No significant abnormality. Lymphatics: No lymphadenopathy. Osseous Structures: No aggressive appearing osseous lesions. Additional Findings: None IMPRESSION: 1. No definite acute findings. 2. Cholelithiasis without evidence of acute cholecystitis. 3. Small bilateral pleural effusions. Signer Name: Boone Teixeira MD Signed: 09/30/2021 4:50 PM Workstation Name: [id number] - Medical Decision Making Patient is nausea is improved. CT is consistent with cholelithiasis without cholecystitis. Patient will be referred for surgeon to review the patient's case. Told her to be on a low-fat diet and the patient be given medication for symptomatic relief and stable for discharge Critical care attestation.: If time is entered above; I have spent that time in minutes in the direct care of this critically ill patient, excluding procedure time. ED Disposition Clinical Impression: Cholelithiasis Qualifiers: Cholelithiasis location: gallbladder Cholecystitis presence: without cholecystitis Biliary obstruction: without biliary obstruction Qualified Code(s): K80.20 - Calculus of gallbladder without cholecystitis without obstruction Disposition: HOME / SELF CARE / HOMELESS Is pt being admited?: No Does the pt Need Aspirin: No Condition: Stable Instructions: Cholelithiasis Referrals: OMAR REBOLLAR MD [Staff Physician] - 3-5 Days Time of Disposition: 17:40
[2021-09-30 18:25] VITALS: BP 137/80
== END 2021-09-30 18:28 | disposition home or self-care (01) ==
LOC: ED 12:26
DX: K80.20 Calculus of gallbladder without cholecystitis without obstruction (principal); I50.9 Heart failure, unspecified; E11.9 Type 2 diabetes mellitus without complications; F17.200 Nicotine dependence, unspecified, uncomplicated; Z72.89 Other problems related to lifestyle; Z79.82 Long term (current) use of aspirin; Z79.01 Long term (current) use of anticoagulants; Z79.899 Other long term (current) drug therapy
CPT/HCPCS: 36415; 74176; 80053; 83690; 85025; 96361; 96365; 96375; 96376; 99284; J2270; J2405; J3480; J3490; J7030; Q0162